=== PATIENT | male | born 1965 | race Caucasian/White ===

== ENCOUNTER 2017-09-21 07:13 | Observation (INO) | payer OTHER, SELFPAY ==
[2017-09-21 07:43] LABS: #Basophils 0.1 thou/uL (0.0-0.2); #Eosinphils 0.1 thou/uL (0.0-0.7); #Lymphocytes 1.7 thou/uL (1.20-3.40); #Monocytes 0.7 thou/uL (0.11-0.59); #Neutrophils 4.9 thou/uL (1.40-6.50); %Basophils 1.1 % (0.0-1.0); %Eosinophils 1.9 % (0.0-10.0); %Lymphocytes 22.3 % (21.0-51.0); %Monocytes 9.3 % (0.0-10.0); %Neutrophils 65.5 % (42.0-75.0); Hemoglobin 17.2 g/dL (14.0-18.0); Mean Corpuscular HGB CONC 34.1 g/dL (32.0-36.0); Mean Corpuscular Hemoglobin 32.3 pg (27.0-31.0); Mean Corpuscular Volume 94.9 fl (80.0-94.0); Mean Platelet Volume 8.7 fL (7.4-10.4); Platelet Count 171 thou/uL (130-400); RBC Distribution Width 12.1 % (11.5-14.5); Red Blood Cell (RBC) Count 5.32 mill/uL (4.70-6.10); White Blood Cell (WBC) Count 7.5 thou/uL (4.8-10.8)
[2017-09-21 08:07] LABS: ALT (SGPT) 195 U/L (8-55); AST (SGOT) 124 U/L (5-34); Albumin 3.8 g/dL (3.5-5.0); Alkaline Phosphatase 71 U/L (40-150); Anion Gap 13 mmol/L (10-20); BUN (Urea Nitrogen) 11 mg/dL (8.4-25.7); Bilirubin, Total 1.1 mg/dL (0.2-1.2); Calc. Creatinine Clearance 0 mL/min (70-130); Calcium 9.5 mg/dL (7.8-10.44); Carbon Dioxide 23 mmol/L (22-29); Chloride 102 mmol/L (98-107); Estimated GFR-MDRD Greater than 90; Globulin 4.8 g/dL (2.4-3.5); Glucose 116 mg/dL (70-105); Potassium 4.3 mmol/L (3.5-5.1); Protein, Total 8.6 g/dL (6.0-8.3); Sodium 134 mmol/L (136-145)
[2017-09-21 08:11] LABS: Troponin I 0.016 ng/mL (< 0.028)
--- NOTE | 2017-09-21 08:15 | RAD ---
PORTABLE CHEST 1 VIEW: Date: 09/21/17 Time: 0715 hours HISTORY: Chest pain radiating to left shoulder. FINDINGS: Comparison made with exam of 01/14/16. The heart size is normal. The aorta is tortuous. The lungs are expanded without focal areas of consol idation, pneumothorax, or pleural effusions. IMPRESSION: No radiographic evidence of acute cardiopulmonary process. POS: [facility]
[2017-09-21] MEDS ORDERED: Nitroglycerin 2% Ointment 1 INCH/1 GM Packet ONE (08:43)
[2017-09-21 13:05] LABS: Troponin I Less than 0.010 ng/mL (< 0.028)
[2017-09-21 13:19] VITALS: BMI 27.9
[2017-09-21] MEDS ORDERED: Ondansetron ODT 4 MG TAB SL PRN (13:41)
[2017-09-21] MEDS ORDERED: Acetaminophen 325 MG TAB PO PRN ×2 (13:41→13:46)
[2017-09-21] MEDS ORDERED: Ondansetron PF 4 MG/2 ML Vial IVP PRN ×2 (13:41→13:46)
[2017-09-21] MEDS ORDERED: Milk Of Magnesia 30 ML UDCUP PO PRN (13:46)
[2017-09-21] MEDS ORDERED: Diabetic Tussin 200 MG/10 ML UDCUP PO PRN (13:46)
[2017-09-21] MEDS ORDERED: Loratadine 10 MG TAB PO PRN (13:46)
[2017-09-21] MEDS ORDERED: Senokot 8.6 MG TAB PO PRN (13:46)
[2017-09-21] MEDS ORDERED: Mag-Al 1200 mg/1200 mg/30 ML UDCUP PO PRN (13:46)
[2017-09-21] MEDS ORDERED: Eucerin (Mineral Oil/Petrolatum,White) 30 gm Jar TOP PRN (13:46)
[2017-09-21] MEDS ORDERED: Sodium Chloride 0.65% Nasal 44 ML BOT EA NARE PRN (13:46)
[2017-09-21] MEDS ORDERED: Chloraseptic Spray 180 ml Bottle PO PRN (13:46)
[2017-09-21] MEDS ORDERED: Artificial Tears 18 DROP/0.9 ML EA EYE PRN (13:46)
[2017-09-21] MEDS ORDERED: Loperamide HCl 2 MG CAP PO PRN (13:46)
[2017-09-21] MEDS ORDERED: Nitroglycerin 0.4 MG TAB (25 Tab Bottle) SL PRN (13:46)
[2017-09-21] MEDS ORDERED: Zolpidem Tartrate 5 MG TAB PO PRN (13:46)
[2017-09-21] MEDS ORDERED: hydrALAZINE 20 MG/ML VIAL SLOW IVP PRN (13:46)
[2017-09-21] MEDS ORDERED: Ondansetron ODT 4 MG TAB PO PRN (13:46)
[2017-09-21] MEDS ORDERED: Aspirin 325 MG TAB PO SCH (14:00)
[2017-09-21] MEDS: HYDROcodone/Acetaminophen 5/325 mg Tablet PO PRN ×2 (14:13→20:38)
[2017-09-21] MEDS: cloNIDine 0.1 MG TAB PO PRN ×2 (14:14→20:37)
--- NOTE | 2017-09-21 14:32 | HP ---
PRIMARY CARE PHYSICIAN: The patient reports that he saw last Dr. Mickey Mcneil. REASON FOR ADMISSION: Chest pain, hypertensive urgency. HISTORY OF PRESENT ILLNESS: A 51-year-old male who has history of hypertension who presented to emergency room with the complaint of chest pain. Patient reports that last night around 12:30, he woke up with chest pain which was left- sided in location, radiated to left shoulder, 10/10 in intensity, associated with some nausea, but no vomiting. The patient sat down at the edge of bed and he stood up and he was moving around and pain little bit eased up, but it was there and finally he was able to go to sleep, but when he woke up this morning, he was still having left-sided pain and that is why he was concerned about and decided to come to emergency room for evaluation. Patient was feeling nausea, dizziness, lightheadedness, and palpitations this morning. He denies any syncope. He denies any orthopnea, PND or leg swelling. He denies any calf tenderness. He denies any vomiting. He denies any fever, chills, cough. He denies any flu-like symptoms. The patient took medication for his blood pressure this morning, but when he presented to emergency room, he was still hypertensive with blood pressure of 194/110. In the emergency room, the patient was given nitroglycerin sublingual x2, aspirin 324 mg and subsequently his pain was eased up to 6/10 in intensity. His pain was not completely subsided and that is why we decided to keep this patient in hospital for observation to rule out acute coronary syndrome. This patient denies any UTI symptoms. He denies any constipation, diarrhea, melena or hematochezia. He reports that Toprol-XL and amiodarone when he takes , then he feels funny and he does not take those medication, especially whenever he is working. The patient also reports that he was on amiodarone as well as Eliquis therapy, but Eliquis therapy was discontinued for lower extremity edema. REVIEW OF SYSTEMS: The following complete review of systems was negative, unless otherwise mentioned in the HPI or below: Constitutional: Weight loss or gain, ability to conduct usual activities. Skin: Rash, itching. Eyes: Double vision, pain. ENT/Mouth: Nose bleeding, neck stiffness, pain, tenderness. Cardiovascular: Palpitations, dyspnea on exertion, orthopnea. Respiratory: Shortness of breath, wheezing, cough, hemoptysis, fever or night sweats. Gastrointestinal: Poor appetite, abdominal pain, heartburn, nausea, vomiting, constipation, or diarrhea. Genitourinary: Urgency, frequency, dysuria, nocturia. Musculoskeletal: Pain, swelling. Neurologic/Psychiatric: Anxiety, depression. Allergy/Immunologic: Skin rash, bleeding tendency. Please see my HPI for pertinent positive and negative. All other review of systems reviewed and negative except as mentioned in the HPI. ALLERGIES: No known drug allergy. CURRENT HOME MEDICATIONS: Prinzide 20/25 one tablet daily, Lipitor 80 mg p.o. daily, amlodipine 10 mg daily, Toprol-XL 50 mg p.o. daily, amiodarone 200 mg twice daily, aspirin 325 mg p.o. daily. PAST MEDICAL HISTORY: Hypertension, history of CVA with left-sided deficiency, dyslipidemia, chronic hepatitis C, history of TIA, coronary artery disease, history of transient atrial fibrillation in past, tobacco abuse disorder, history of alcoholism. PAST SURGICAL HISTORY: Cardiac catheterization showed nonobstructive coronary artery disease, appendicectomy, hernia repair, right carotid endarterectomy. PAST PSYCHIATRIC HISTORY: Reviewed and negative. SOCIAL HISTORY: Patient is single. He used to drink 6 beers on a daily basis, but he cut down. He smokes about 1 pack per daily basis. He denies any current drug abuse history, but he has a remote history of marijuana and IV drug abuse. 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 FAMILY HISTORY: No strong family history of premature coronary artery disease, stroke or cancer. EMERGENCY ROOM COURSE: Patient is given aspirin, nitropatch. PHYSICAL EXAMINATION: VITAL SIGNS: On arrival, blood pressure 194/110, pulse 67, respiratory rate 24 , temperature 98.7, saturation 93% on room air, weight 88.5 kilograms. GENERAL: Patient is currently alert, awake, no obvious acute distress. HEENT: Head: Normocephalic, atraumatic. Eyes: Pupils round, reactive to light. Extraocular muscle intact. ENT: Oropharynx within normal limits. Moist mucous membranes, no oral lesion, no pharyngeal erythema, no exudate. NECK: Supple, no JVD, no thyromegaly, no carotid bruit, no jugular venous distention. LUNGS: Clear to auscultation without any rhonchi or rales. CARDIAC: S1, S2 regular without any significant murmur. ABDOMEN: Soft, bowel sounds present, nontender, nondistended. No organomegaly , no mass, no suprapubic tenderness. BACK: Unremarkable, no CVA tenderness. EXTREMITIES: Upper extremity, passive movement of all joints are normal. Lower extremity, no edema. Good peripheral pulsation. SKIN: No skin rash. HEMATOLOGICAL: No lymphadenopathy. NEUROLOGIC: The patient is alert and oriented x3. Cranial nerves II through XII intact. Motor and sensation within normal limits. No focal neurological deficit noted. PSYCHIATRIC: Normal affect. SIGNIFICANT LABORATORY DATA AND IMAGING: Chest x-ray based on my review, no acute cardiopulmonary process. CBC: WBC 7.5, hemoglobin 17.2, platelet 171. BMP: Sodium 134, potassium 4.3, chloride 102, carbon dioxide 23, anion gap 13, BUN 11, creatinine 0.77, glucose 116, calcium 9.5. Total bilirubin 1.1, AST 124 , ALT 195, alkaline phosphatase 71, albumin 3.8. Cardiac enzymes negative x2. ASSESSMENT AND PLAN: 1. Acute chest pain. Patient's chest pain description is atypical. He has underlying several risk factors for coronary artery disease including hypertension, dyslipidemia, smoking as well as peripheral vascular disease. The patient will be observed on telemetry floor. His cardiac enzymes are negative. We will try to perform stress test today for diagnostic reason. We will check lipid profile tomorrow morning for risk stratification. We will continue the nitropatch q.8 hourly, aspirin 325 mg p.o. daily and during this admission, we will try to control his blood pressure with different blood pressure medication. We will closely monitor on telemetry floor. 2. Tobacco abuse disorder. Smoking cessation counseling given. Healthy lifestyle measures discussed with the patient. We will offer nicotine patch if needed. 3. Abnormal liver function tests, likely related with his history of alcohol abuse as well as chronic hepatitis C. Patient is advised to follow up with primary care physician as an outpatient basis. 4. Hypertensive urgency. The patient's blood pressure is out of control. At this point, we will verify his home medication. We will continue with Prinzide 20/25 one tablet p.o. daily, amlodipine 10 mg p.o. daily, nitropatch q.8 hourly and we will use hydralazine and clonidine p.r.n. basis. 5. Dyslipidemia. Check lipid profile tomorrow morning and start statin therapy as per home dosage. 6. Nonspecified atrial arrhythmia. He had transient atrial fibrillation and currently is on amiodarone. Currently, the patient is in sinus rhythm. He has premature atrial complexes on EKG. We will closely monitor on telemetry floor. The patient is not on any chronic anticoagulation therapy at this point, the patient is only on aspirin therapy. The patient is advised to follow up with primary granite cutter. 7. History of cerebrovascular accident without any residual deficit. 8. Deep venous thrombosis prophylaxis not needed because we are expecting discharge in 24 hours. 9. Gastrointestinal prophylaxis, Pepcid 20 mg p.o. b.i.d. 10. CODE STATUS: The patient is FULL CODE. Patient does not have any surrogate decision maker. Disposition plan based on stress test result, likely within 24-48 hours. Plan of care discussed with the patient in detail. SETH
[2017-09-21 15:33] LABS: Troponin I Less than 0.010 ng/mL (< 0.028)
[2017-09-21] MEDS: Nitroglycerin 2% Ointment 1 INCH/1 GM Packet TOP SCH ×2 (17:10→20:11)
[2017-09-21 18:28] LABS: Bilirubin Moderate (Negative); Blood, Urine Negative (Negative); Clarity CLEAR (Clear); Glucose, Urine (Dipstick) Negative (Negative); Protein, Urine (Dipstick) Trace mg/dL (Neg-Trace); Specific Gravity, Urine 1.027 (1.002-1.036)
[2017-09-21 18:30] LABS: Bacteria/HPF None Seen HPF (None Seen); Hyaline Casts/LPF 0-3 HYALINE CAST LPF (0-3 Hyaline); Pathc Cast-AUWi Flag 0.29 (0-2.49); RBC/HPF 0-3 HPF (0-3); Squamous Epithelial 0-3 HPF (0-3); WBC/HPF 0-3 HPF (0-3)
[2017-09-21 18:39] LABS: Leukocyte Negative (Negative); Nitrite Negative (Negative)
[2017-09-21] MEDS: Famotidine 20 MG TAB PO SCH (20:38)
[2017-09-22] MEDS: cloNIDine 0.1 MG TAB PO PRN (01:02)
[2017-09-22 04:46] LABS: Cardiac Risk 3.5 (Less than 4.5)
[2017-09-22 07:50] VITALS: TEMP 98.6
[2017-09-22] MEDS: Nitroglycerin 2% Ointment 1 INCH/1 GM Packet TOP SCH (08:08)
[2017-09-22] MEDS ORDERED: Lisinopril/Hydrochlorothiazide 20/25 mg Tablet PO SCH (09:00)
[2017-09-22] MEDS ORDERED: Aspirin 325 MG TAB PO SCH (09:00)
[2017-09-22] MEDS ORDERED: Amlodipine 10 MG TAB PO SCH (09:00)
--- NOTE | 2017-09-22 09:28 | PDOC.PN ---
- Subjective Encounter Start Date: 09/22/17 Encounter Start Time: 07:00 -: old records requested/rev Patient seen and examined. No new complaints. No overnight events - Objective Resuscitation Status: Resuscitation Status FULL:Full Resuscitation MAR Reviewed: Yes Vital Signs & Weight: Vital Signs (12 hours) Temp Pulse Resp BP BP Pulse Ox 09/22/17 07:28 98.6 F 53 L 12 159/103 H 95 09/22/17 02:42 54 L 18 142/93 H 94 L 09/22/17 01:02 175/101 H I&O: 09/21/17 09/22/17 09/23/17 06:59 06:59 06:59 Intake Total 600 Output Total 200 Balance 400 Result Diagrams: 09/21/17 07:35 09/21/17 07:35 EKG Reviewed by me: Yes (nsr) Phys Exam - Physical Examination Constitutional: NAD HEENT: PERRLA, moist MMs, sclera anicteric Neck: no JVD, supple Respiratory: no wheezing, no rales, no rhonchi Cardiovascular: RRR, no significant murmur, no rub Gastrointestinal: soft, non-tender, no distention, positive bowel sounds Musculoskeletal: no edema, pulses present Neurological: non-focal, normal sensation, moves all 4 limbs Psychiatric: normal affect, A&O x 3 Skin: no rash, normal turgor Dx/Plan (1) Chest pain Code(s): R07.9 - CHEST PAIN, UNSPECIFIED Status: Acute (2) Abnormal LFTs Code(s): R94.5 - ABNORMAL RESULTS OF LIVER FUNCTION STUDIES Status: Chronic (3) Chronic hepatitis C Code(s): B18.2 - CHRONIC VIRAL HEPATITIS C Status: Chronic (4) H/O carotid endarterectomy Code(s): Z98.890 - OTHER SPECIFIED POSTPROCEDURAL STATES Status: Chronic (5) H/O: CVA (cerebrovascular accident) Code(s): Z86.73 - PRSNL HX OF TIA (TIA), AND CEREB INFRC W/O RESID DEFICITS Status: Chronic (6) Hyperlipidemia Code(s): E78.5 - HYPERLIPIDEMIA, UNSPECIFIED Status: Chronic (7) Hypertension Code(s): I10 - ESSENTIAL (PRIMARY) HYPERTENSION Status: Chronic (8) Tobacco abuse Code(s): Z72.0 - TOBACCO USE Status: Chronic - Plan cont current plan of care * medication reviewed as below * symptomatic treatment * resume home meds * STRESS TEST IS NEGATIVE, WILL DISCHARGE HOME Review of Systems - Review of Systems Eyes: negative: Pain, Vision Change, Conjunctivae Inflammation, Eyelid Inflammation, Redness, Other ENT: negative: Ear Pain, Ear Discharge, Nose Pain, Nose Discharge, Nose Congestion, Mouth Pain, Mouth Swelling, Throat Pain, Throat Swelling, Other Respiratory: negative: Cough, Dry, Shortness of Breath, Hemoptysis, SOB with Excertion, Pleuritic Pain, Sputum, Wheezing Cardiovascular: negative: chest pain, palpitations, orthopnea, paroxysmal nocturnal dyspnea, edema, light headedness, other Gastrointestinal: negative: Nausea, Vomiting, Abdominal Pain, Diarrhea, Constipation, Melena, Hematochezia, Other Genitourinary: negative: Dysuria, Frequency, Incontinence, Hematuria, Retention , Other Musculoskeletal: negative: Neck Pain, Shoulder Pain, Arm Pain, Back Pain, Hand Pain, Leg Pain, Foot Pain, Other Skin: negative: Rash, Lesions, Javier, Bruising, Other - Medications/Allergies Allergies/Adverse Reactions: Allergies Allergy/AdvReac Type Severity Reaction Status Date / Time rosuvastatin [From Crestor] Allergy Verified 09/21/17 14:08 Medications: Current Medications Acetaminophen (Tylenol) 650 mg PO Q4H PRN PRN Reason: Headache/Fever or Pain Hydrocodone Bitart/Acetaminophen ([place] 5/325) 1 tab PO Q4H PRN PRN Reason: Moderate Pain (4-6) Last Admin: 09/21/17 20:38 Dose: 1 tab Al Hydroxide/Mg Hydroxide (Maalox) 30 ml PO Q6H PRN PRN Reason: Heartburn or Indigestion Amlodipine Besylate (Norvasc) 10 mg PO DAILY [facility] Artificial Tears (Tears Naturale) 0 drop EA EYE PRN PRN PRN Reason: Dry Eyes Aspirin (Aspirin) 325 mg PO DAILY [facility] Clonidine (Catapres) 0.1 mg PO Q4H PRN PRN Reason: Systolic BP > 180 Last Admin: 09/22/17 01:02 Dose: 0.1 mg Famotidine (Pepcid) 20 mg PO BID [facility] Last Admin: 09/21/17 20:38 Dose: 20 mg Guaifenesin (Robitussin Sf) 200 mg PO Q4H PRN PRN Reason: Cough Lisinopril/HCTZ (Prinizide 20-25) 1 tab PO DAILY [facility] Hydralazine HCl (Apresoline) 10 mg SLOW IVP Q4H PRN PRN Reason: Systolic BP > 180 Loperamide HCl (Imodium) 2 mg PO PRN PRN PRN Reason: Diarrhea/Loose Stools Loratadine (Claritin) 10 mg PO DAILYPRN PRN PRN Reason: Sinus Symptoms Magnesium Hydroxide (Milk Of Magnesium) 30 ml PO DAILYPRN PRN PRN Reason: Constipation Mineral Oil/White Petrolatum (Eucerin Cream) 0 gm TOP BIDPRN PRN PRN Reason: Dry Skin Nitroglycerin (Nitrostat) 0.4 mg SL Q5MIN PRN PRN Reason: Chest Pain Nitroglycerin (Nitro-Bid 2% Ointment) 0.5 inch TOP 0100,0900,1700 [facility] Last Admin: 09/22/17 08:08 Dose: Not Given Ondansetron HCl (Zofran Odt) 4 mg PO Q6H PRN PRN Reason: Nausea/Vomiting Ondansetron HCl (Zofran) 4 mg IVP Q6H PRN PRN Reason: Nausea/Vomiting Phenol (Chloraseptic [place] 180 Ml Bot) 0 ml PO PRN PRN PRN Reason: Sore Throat Senna (Senokot) 2 tab PO HSPRN PRN PRN Reason: Constipation Sodium Chloride ([place]att Nasal [place] 0.65%) 0 ml EA NARE QIDPRN PRN PRN Reason: Nasal Congestion Zolpidem Tartrate (Ambien) 5 mg PO HSPRN PRN PRN Reason: Insomnia
--- NOTE | 2017-09-22 11:17 | DIS ---
PRIMARY CARE PHYSICIAN: Dr. Radha Richter. DATE OF ADMISSION: 09/21/2017 DATE OF DISCHARGE: 09/22/2017 DISCHARGE DISPOSITION: Home. PRIMARY DISCHARGE DIAGNOSES: Chest pain, rule out acute coronary syndrome. SECONDARY DISCHARGE DIAGNOSES: Tobacco abuse disorder, hypertension, dyslipidemia, history of cerebr ovascular accident, history of carotid endarterectomy, chronic hepatitis C, and chronically abnormal LFT. PRIMARY PROCEDURE/OPERATION: None. RADIOLOGICAL INVESTIGATION: Chest x-ray normal. STRESS TEST RESULT: Pending. SIGNIFICANT LABORATORY DATA: WBC 7.5, hemoglobin 17.2, platelet 171. Sodium 134, potassium 4.3, BUN 11, creatinine 0.77, glucose 116, calcium 9.5, AST 124, ALT 195, alkaline phosphatase 71, albumin 3. 8, LDL 107. Cardiac enzymes negative x3. Urinalysis: bilirubin moderate. DISCHARGE MEDICATIONS: The patient will continue all his previous medication. Amlodipine 10 mg p.o. daily added for uncontrolled hypertension during this admission, aspirin 81 mg p.o. daily, Pepcid 20 mg p.o. b.i.d., and Prinzide 20/25 one tablet p.o. daily. CONTRAINDICATIONS: None. CODE STATUS: FULL CODE. INPATIENT CONSULTANTS: None. ALLERGIES: CRESTOR. DISCHARGE PLAN: Post hospital, the patient will follow up with primary care physician in 1 week. HOSPITAL COURSE: A 51-year-old male with above-mentioned medical problem, who was admitted by me yes terday for chest pain. The patient's blood pressure was out of control. Please see my HPI for furth er details. His chest pain description was atypical for angina. We kept this patient in hospital fo r observation. We did serial cardiac enzymes that were negative. Telemetry remained unremarkable. We performed exercise Cardiolite stress test today, result is pending by the time of dictation. If stress test is negative, then we will consider discharging him home later on today. For his uncon trolled hypertension during this admission, we added amlodipine. Rest of medication will be continue d as per previous.
[2017-09-22 11:24] VITALS: BP 163/99
[2017-09-22] MEDS: Famotidine 20 MG TAB PO SCH (11:40)
--- NOTE | 2017-09-22 12:06 | NM ---
CARDIAC SPECT: CLINICAL HISTORY: 51-year-old male with chest pain, coronary artery disease, atrial fibrillation, hypertension, and dys lipidemia. TECHNIQUE: A myocardial perfusion scan was performed using the single isotope one day protocol with technetium-9 9m sestamibi. 10 mCi were injected intravenously for the rest exam followed by 28 mCi for the stress exam. Pharmacologic stress with Lexiscan was monitored and interpreted by Dr. Cornell. FINDINGS: Homogeneous tracer distribution is seen in the myocardial segments on stress and rest images without fixed or reversible defects. GATED SPECT LVEF: 48%. WALL MOTION EXAM: No segmental wall motion abnormalities are seen. IMPRESSION: Normal myocardial perfusion scan. POS: [facility]
[2017-09-22] MEDS ORDERED: Regadenoson 0.4 MG/5 ML SYRINGE ONE (15:25)
--- NOTE | 2017-11-03 19:56 | EKG ---
Test Reason : CHEST PAIN Blood Pressure : / mmHG Vent. Rate : 073 BPM Atrial Rate : 073 BPM P-R Int : 132 ms QRS Dur : 102 ms QT Int : 432 ms P-R-T Axes : 087 061 061 degrees QTc Int : 475 ms Sinus rhythm with Premature atrial complexes with Abberant conduction Otherwise normal ECG Confirmed by MARICEL ERICKSON ([id number]), video effects editor PRABHA HURLEY ([id number]) on 11/03/2017 7:55:34 PM Referred By: Confirmed By:MARICEL ERICKSON
--- NOTE | 2017-11-21 08:07 | STRESS ---
Acquisition Time: 2017-09-22 09:34:40 Total Exercise Time: 00:01:00 Test Indications: CHEST PAIN Medications: Protocol: LEXISCAN Max HR: 093 BPM 55% of Pred: 168 BPM Max BP: 166/094 mmHG Max Work Load: 1.0 METS RESTING ECG: NORMAL SINUS RHYTHM AT 65 BPM WITH EARLY REPOLARIZATION; OCCASIONAL PAC'S SYMPTOMS: DYSPNEA ON EXERTION, CHEST TIGHTNESS NORMAL BP RESPONSE ECTOPY: RARE PAC'S; RARE PVC'S ECG STRESS: NO SIGNIFICANT CHANGES INTERPRETATION: INDETERMINATE ECG/AWAIT NUCLEAR IMAGES FOR DEFINITIVE DIAGNOSIS Confirmed by RUPA DE JESUS M.D. ([id number]) on 11/21/2017 8:06:56 AM Referred By: MD Jorge HENSLEY Confirmed By:RUPA DE JESUS M.D.
== END 2017-09-22 15:14 | disposition home or self-care (01) ==
LOC: ERS 07:13 → 2SW 13:13
PROVIDERS: ADMIT Internal Medicine; ATTEND Internal Medicine
DX: R07.9 Chest pain, unspecified (principal); I16.0 Hypertensive urgency; I10 Essential (primary) hypertension; E78.5 Hyperlipidemia, unspecified; B18.2 Chronic viral hepatitis C; I25.10 Atherosclerotic heart disease of native coronary artery without angina pectoris; F17.200 Nicotine dependence, unspecified, uncomplicated; R79.89 Other specified abnormal findings of blood chemistry; Z79.82 Long term (current) use of aspirin; Z79.899 Other long term (current) drug therapy
CPT/HCPCS: 36415; 71045; 78452; 80053; 80061; 81001; 82553; 84484; 85025; 90471; 90732; 93005; 93017; 94760; A9500; G0009; G0378; J0360; J2785

== ENCOUNTER 2018-09-02 16:26 | Observation (INO) | payer SELFPAY ==
[2018-09-02] MEDS ORDERED: hydrALAZINE 20 MG/ML VIAL ONE (16:43)
[2018-09-02] MEDS ORDERED: Acetaminophen 500 MG TAB ONE (18:48)
[2018-09-02] MEDS ORDERED: Lorazepam 2 MG/ML VIAL ONE (19:09)
[2018-09-02 20:22] LABS: Troponin I 0.012 ng/mL (< 0.028)
[2018-09-02] MEDS ORDERED: hydrALAZINE 20 MG/ML VIAL SLOW IVP PRN (21:22)
[2018-09-02 23:23] LABS: Troponin I Less than 0.010 ng/mL (< 0.028)
[2018-09-03] MEDS ORDERED: cloNIDine 0.1 MG TAB PO PRN (00:05)
[2018-09-03] MEDS ORDERED: Ondansetron ODT 4 MG TAB PO PRN (00:06)
[2018-09-03] MEDS ORDERED: Nitroglycerin 0.4 MG TAB (25 Tab Bottle) SL PRN (00:06)
[2018-09-03] MEDS ORDERED: Ondansetron PF 4 MG/2 ML Vial IVP PRN (00:06)
[2018-09-03 00:17] VITALS: BMI 30.7
[2018-09-03] MEDS ORDERED: Furosemide 20 MG/2 ML VIAL SLOW IVP SCH (01:00)
[2018-09-03] MEDS: Nicotine 14 MG PATCH TD SCH (01:10)
[2018-09-03 01:51] LABS: Amphetamine Not Detected (NotDetected); Barbiturates Screen Not Detected (NotDetected); Benzodiazepine Screen Detected (NotDetected); Cocaine Metabolite Screen Not Detected (NotDetected); Medtox Control Line Valid? VALID (VALID); Medtox Reader # READER 4; Methadone Not Detected (NotDetected); Methamphetamine Not Detected (NotDetected); Opiate Screen Not Detected (NotDetected); Oxycodone Screen Not Detected (NotDetected); Phencyclidine (PCP) Not Detected (NotDetected); THC/Cannabinoid Screen Detected (NotDetected); Tricyclic Screen Not Detected (NotDetected)
--- NOTE | 2018-09-03 03:54 | HP ---
PRIMARY CARE PHYSICIAN: REBECCA Stock. CHIEF COMPLAINT: Cough, shortness of breath, and chest pain. HISTORY OF PRESENT ILLNESS: Mr. Burrows is a 52-year-old male with a past medical history of hypertension, hyperlipidemia, and CVA, who had presented to [facility] earlier today after being transferred from an outside [place] ER for chest pain rule out. The patient reports cough and shortness of breath over the last 2 weeks, he states that he had developed chest pain roughly 1 week ago and had worsened over the weekend. He had gone to his PCP earlier today and was later referred to the ED for further workup. The patient states that his chest pain is actually worse with his cough along with deep breathing. In [place], his workup included a 1-view chest x-ray, which revealed volume overload with interstitial edema. Per patient, he had no history of heart failure in the past. He had undergone an echocardiogram back in 2015, which was normal. He was seen for chest pain rule out last summer in September where he underwent cardiac stress test, which revealed a normal myocardial perfusion scan, normal wall motion, and an EF of 48% with no fixed or any reversible defect. He was later discharged home for close outpatient followup. Since then, he states that he had followed up with his PCP who had changed some of his home medications. He used to take Norvasc; however, this was later changed to verapamil recently over the last few months. He states that he is supposed to take a baby aspirin daily. However, he had not been taking it recently. He had denied any fever, chills, any headache, blurred vision, dizziness, any palpitations, any abdominal pain, nausea, vomiting, or diarrhea. He had reported that his chest pain is worse when he pushes on his chest on the left side and had seemed did not go away as of late. His workup included serial troponins which were found to be negative x4 with no EKG changes. It was deemed that the patient will be admitted due to his elevated blood pressures with systolic over 160 and diastolic over 100 and for further evaluation of his chest pain. REVIEW OF SYSTEMS: All other systems reviewed and found to be negative unless mentioned in the HPI. PAST MEDICAL HISTORY: Hypertension, hyperlipidemia, and previous history of CVA. PAST SURGICAL HISTORY: Appendectomy and a hernia repair. PSYCHIATRIC HISTORY: None. SOCIAL HISTORY: The patient lives at home with family. He states he drinks 1 to 2 beers a night and his last drink was on Sunday, and currently uses marijuana. He smokes about a half pack of cigarettes per day. KNOWN ALLERGIES: Rosuvastatin. CURRENT HOME MEDICATIONS: 1. Lisinopril/HCTZ 20 mg/25 mg. 2. Verapamil 80 mg 3 times daily. 3. Aspirin 81 mg daily. PHYSICAL EXAMINATION: VITAL SIGNS: BP 165/100, pulse 72, respirations 17, temperature 98.5 degrees Fahrenheit, O2 saturations 96% on room air. GENERAL: The patient is awake, alert, and oriented x3. He is currently lying uncomfortably in bed, in no acute distress. HEENT: Atraumatic, normocephalic. Pupils are round and reactive to light. Extraocular muscles intact. Moist mucous membranes noted. CARDIOVASCULAR: Positive S1 and S2. Regular rate and rhythm. No murmur auscultated. The patient with some mild reproducible chest pain localized to the left side and under left axilla. RESPIRATORY: Some mild coarse breath sounds heard bilaterally, however, worse on the right. ABDOMEN: Soft and nontender. Bowel sounds present. MUSCULOSKELETAL: Strength 5+ bilaterally upper and lower extremities. Moves all extremities equal. No edema noted. SKIN: Warm, dry, and intact. No rashes. No ulceration noted. PSYCHIATRIC: Good mood and affect. LABORATORY DATA: WBC 6.7, RBC 5.38, hemoglobin 16.2, platelets 183. Sodium 136, potassium 4.1, anion gap 12, BUN 13, creatinine 0.78, estimated GFR greater than 90, glucose 87, AST 101, ALT 168. Troponin negative x4. DIAGNOSTIC IMAGING: Portable chest x-ray revealed volume overload with some interstitial edema noted. ASSESSMENT AND PLAN: 1. Chest pain, this appears to be more atypical in nature and is currently reproducible, this could be noted to be costochondritis due to patient's cough over the last few weeks; however, we will check a chest x-ray to rule out heart failure as his chest x-ray shows some fluid overload and some interstitial edema. The patient will be given some IV Lasix x1 and he will be restarted on his home medications. 2. Hypertension. The patient will be restarted on his home medications. He will also be given p.r.n. medications including IV hydralazine and oral clonidine. 3. History of cerebrovascular accident, currently stable at this time. However, the patient will be restarted on a baby aspirin daily. 4. History of alcohol abuse. The patient will be monitored for any withdrawal. His last drink was Sunday and he states he only drinks about 1 to 2 beers a day. He states due to not feeling well recently, he had only been drinking 1 beer daily. 5. History of hepatitis C, currently at baseline. He appears to not be undergoing any further treatment for this. 6. Deep venous thrombosis and gastrointestinal prophylaxis. 7. Code status, full code. DISPOSITION: Pending further workup and clinical findings. Job ID: [id number]
[2018-09-03 05:51] LABS: #Basophils 0.1 thou/uL (0.0-0.2); #Eosinphils 0.2 thou/uL (0.0-0.7); #Lymphocytes 1.9 thou/uL (1.20-3.40); #Monocytes 0.9 thou/uL (0.11-0.59); #Neutrophils 3.3 thou/uL (1.40-6.50); %Basophils 1.7 % (0.0-1.0); %Eosinophils 2.5 % (0.0-10.0); %Lymphocytes 30.3 % (21.0-51.0); %Neutrophils 51.6 % (42.0-75.0); Mean Corpuscular HGB CONC 34.3 g/dL (32.0-36.0); Mean Corpuscular Hemoglobin 32.1 pg (27.0-31.0); Mean Corpuscular Volume 93.6 fL (78.0-98.0); Mean Platelet Volume 9.6 fL (7.4-10.4); Platelet Count 174 thou/uL (130-400); RBC Distribution Width 11.9 % (11.5-14.5); White Blood Cell (WBC) Count 6.4 thou/uL (4.8-10.8)
[2018-09-03 06:02] LABS: Anion Gap 13 mmol/L (10-20); BUN (Urea Nitrogen) 14 mg/dL (8.4-25.7); Calc. Creatinine Clearance 148 mL/min (70-130); Calcium 9.5 mg/dL (7.8-10.44); Carbon Dioxide 22 mmol/L (22-29); Chloride 102 mmol/L (98-107); Estimated GFR-MDRD Greater than 90; Glucose 87 mg/dL (70-105); Potassium 3.9 mmol/L (3.5-5.1); Sodium 133 mmol/L (136-145)
[2018-09-03] MEDS: Aspirin Chewable 81 MG TAB PO SCH (08:33)
[2018-09-03] MEDS: Lisinopril/Hydrochlorothiazide 20/25 mg Tablet PO SCH (08:33)
[2018-09-03] MEDS: Enoxaparin Sodium 40 MG/0.4 ML SYRINGE SC SCH (08:34)
[2018-09-03] MEDS: Famotidine 20 MG TAB PO SCH ×2 (08:34→20:07)
[2018-09-03] MEDS: Acetaminophen 325 MG TAB PO PRN (08:34)
[2018-09-03] MEDS: Verapamil 80 MG TAB PO SCH ×3 (08:34→20:07)
[2018-09-03] MEDS ORDERED: Amlodipine 10 MG TAB PO SCH (09:00)
[2018-09-03] MEDS ORDERED: Verapamil 80 MG TAB PO SCH (09:00)
--- NOTE | 2018-09-03 14:26 | ULT ---
BILATERAL CAROTID DUPLEX ULTRASOUND: HISTORY: TIA, CVA TECHNIQUE: Grayscale, color-flow and spectral Doppler ultrasound imaging of the extracranial carotid artery syst ems was performed bilaterally. FINDINGS: There is plaque formation on both sides. The peak systolic velocity in the right ICA measures 74 cm/s with an end-diastolic velocity of 20 cm/ s and a systolic ratio of 1.1. The peak systolic velocity in the left ICA measures 64 cm/s with an end-diastolic velocity of 21 cm/s and a systolic ratio of 0.75. Flow in both vertebral arteries remains antegrade. IMPRESSION: No evidence of hemodynamically significant stenosis.
--- NOTE | 2018-09-03 16:21 | MRI ---
EXAM: MRI Brain WO Con PROVIDED CLINICAL HISTORY: Bilateral upper extremity numbness and progressive weakness for 2 weeks. Akathisia. COMPARISON: 01/14/2016 FINDINGS: There is a stable area of blooming artifact within the posterior lateral aspect of the left putamen a s well as punctate focus of blooming artifact within the posteromedial left cerebellar hemisphere most suggestive of prior areas of hemorrhage. There are stable cavitated signal abnormalities within the bilateral basal ganglia and omkar bilateral ly likely reflective of remote ischemic change and cavitated lacunar infarctions. Again noted is increased FLAIR and T2-weighted signal intensity in the periventricular white matter most compatible with moderate to severe chronic small vessel ischemic changes which has progressed from the prior study. Cavitated small white matter infarctions are also present. No areas of restricted diffusion ar e seen to suggest an acute infarction. The septum pellucidum and third ventricle are in the midline. Mild cerebral volume loss is present. T he ventricular system is normal in size, shape, and position for the degree of sulcal atrophy. Appropriate flow voids are demonstrated at the base of the brain. There is a small mucous retention cyst again seen in the left sphenoid sinus with mild mucosal thicke haider in the ethmoidal air cells bilaterally. No other interval change from prior study. IMPRESSION: 1. No acute intracranial abnormalities demonstrated. 2. Remote areas of ischemia as well as chronic small vessel ischemic changes which have progressed fr om prior exam. 3. Stable areas of hemorrhage in the lateral aspect left putamen and involving the posterolateral med ial left cerebellar hemisphere. 3. Cerebral volume loss. 4. Mild sinus disease.
--- NOTE | 2018-09-03 16:27 | MRI ---
MRI Cervical spine without contrast: HISTORY: Bilateral upper extremity numbness and progressive weakness for 2 weeks. COMPARISON: None FINDINGS: The craniocervical junction is unremarkable. No significant cord signal abnormality. Paravertebral soft tissues have a normal appearance and normal signal intensity. C1-2:No significant stenosis. C2-3: There is a mild disc osteophyte complex with uncinate process hypertrophy. This narrows the farzad tral subarachnoid space without resulting in deformity of the spinal cord. Mild bilateral neural foraminal narrowing is present. C3-4: There is a broad-based disc osteophyte complex with uncinate process hypertrophy. This results in moderate narrowing of the central spinal canal, and there is flattening of the anterior aspect of the spinal cord. Severe left and moderate to severe right-sided neural foraminal narrowing is pres ent C4-5: There is broad-based disc osteophyte complex present. Facet hypertrophic changes are noted. The re is generalized mild narrowing of the central spinal canal. Moderate to severe right and moderate left-sided neural foraminal narrowing is present. C5-6: There is broad-based disc osteophyte complex with mild facet degenerative changes. The right ne ural foramen is patent, but there is mild left-sided neural foraminal narrowing. C6-7: There is a mild disc osteophyte complex without significant narrowing of the central spinal can al. Facet degenerative changes are present at this level. There is uncinate process hypertrophy. Moderate bilateral neural foraminal narrowing is present. C7-T1: There is uncinate process hypertrophy seen on the left with mild facet degenerative changes. F indings result in moderate left-sided neural foraminal narrowing. Central spinal canal and right neural foramen are patent IMPRESSION: Multilevel degenerative changes greatest involving the upper cervical spine.
[2018-09-03] MEDS ORDERED: Ketorolac Tromethamine 30 MG/ML VIAL IVP PRN (17:09)
--- NOTE | 2018-09-03 18:55 | PDOC.PN ---
- Subjective Encounter Start Date: 09/03/18 Encounter Start Time: 12:51 Subjective: Patient states his main complaint is upper extremity weakness x 2wks. -: As well as numbness. Has been experiencing weakness in bilateral LE. -: Denies any neck pain. Reports lower back pain. No trauma/heavy lifting. Hx of CVA close to one year ago. Denies any speech changes recently or vision changes. No gait disturbances. States he is unable to coordinate hand movements and frequently dropping items including drinks, food, utensils but due to numbness. States he feels he has good strength in upper exterimities but sensation is significantly reduced extending up to right shoulder and left elbow. No pain associated with this. Reports having an episode of stool incontinence last week, had urgency and unable to make it on time. States had diarrhea. Reports occasional issues with bladder control. Frequent dribbling. Denies any saddle or groin numbness/ tingling. No neck stiffness. No fevers, chills or sweats. Has also been having issues with coughing frequently when eating. Difficulty swallowing as of lately. Has noted occasional difficulty with speech. Finding words and slurring at times. No ESTES or dizziness. - Objective Resuscitation Status - Order Detail: 09/03/18 00:06 Resuscitation Status Routine Co-Sign Provider: Resuscitation Status: FULL: Full Resuscitation Vital Signs & Weight: Vital Signs (12 hours) Temp Pulse Resp BP BP Pulse Ox 09/03/18 12:00 98.2 F 67 20 155/97 H 94 L 09/03/18 08:33 135/94 H 09/03/18 08:00 98.6 F 73 22 H 147/101 H 93 L Weight Admit Weight 208 lb 6.4 oz Weight 208 lb 6.4 oz I&O: 09/02/18 09/03/18 09/04/18 06:59 06:59 06:59 Intake Total 240 720 Output Total 650 Balance -410 720 Result Diagrams: 09/03/18 04:45 09/03/18 04:45 Phys Exam - Physical Examination Constitutional: NAD HEENT: PERRLA, sclera anicteric, oral pharynx no lesions Neck: no nodes, full ROM Respiratory: no wheezing, no rales, no rhonchi, clear to auscultation bilateral Cardiovascular: RRR Gastrointestinal: soft, no distention, positive bowel sounds Musculoskeletal: no edema, pulses present Neurological: moves all 4 limbs Reduced power in lower extremities, power intact in bilateral UE Reduced sensation in bilateral UE and LE. Right arm worse than left. Psychiatric: normal affect, A&O x 3 Deviation from normal: No cerebellar signs. Normal speech and facial movements/ sensation No tongue deviation. Dx/Plan (1) H/O: CVA (cerebrovascular accident) Code(s): Z86.73 - PRSNL HX OF TIA (TIA), AND CEREB INFRC W/O RESID DEFICITS Status: Chronic (2) Hyperlipidemia Code(s): E78.5 - HYPERLIPIDEMIA, UNSPECIFIED Status: Chronic (3) Hypertension Code(s): I10 - ESSENTIAL (PRIMARY) HYPERTENSION Status: Chronic - Plan cont current plan of care, speech therapy, DVT proph w/SCDs MRI Brain/Cspine. Carotid US. Rule out TIA/CVA vs. cspine abnormality -: Patient started on Lasix on admission for pulmonary edema. Lungs clear. -: Reports cough, concern for aspiration given dysphagia. Monitor vitals/WCC. -: Repeat CXR to reassess if any underlying pneumonia. Dysphagia screening. -: NPO until cleared. ADDENDUM: Significant findings on Cspine MRI. Neurosurgery consult placed. No acute changes on Brain imaging.
--- NOTE | 2018-09-03 19:22 | RAD ---
Portable frontal chest radiograph: 09/03/2018 COMPARISON: 09/02/2018 HISTORY: Cough, dysphasia FINDINGS: Lungs are clear. Heart and mediastinal contours appear within normal limits. IMPRESSION: No acute findings.
--- NOTE | 2018-09-03 22:10 | CON ---
DATE OF CONSULTATION: 09/03/2018 CONSULTING PHYSICIAN: Hospitalist Service. IMPRESSION: 1. Headache, probably migrainous in nature. 2. Advancement of small vessel ischemic changes compared to last year. 3. Noncompliance with medications. 4. Hypertension. 5. Bilateral hand numbness, likely secondary to carpal tunnel syndrome. 6. History of benign positional vertigo episodes. PLAN: 1. Restart aspirin and a statin. 2. Toradol 30 mg IV now. HISTORY OF PRESENT ILLNESS: Mr. Burrows is a 52-year-old male with a past history of stroke. He was admitted last year and had a workup which at that time was related to left-sided weakness and numbness. His deficits improved. 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 Last week on Sunday, he started getting a headache. He later in the day started having some coughing episode. He coughed so hard that he actually blacked out for a moment. He then later developed some chest pain. He did not seek medical attention right away. Chest pain reportedly continued all weekend. He decided to see his primary care doctor on Sunday and was transferred here for further evaluation. He has had a prior cardiac workup with a Cardiolite stress test done in September of last year. Since admission, he had an MRI of the brain and cervical spine done. The brain images revealed chronic ischemic changes that worsened compared to last year. His MRI of the cervical spine showed some mild central canal stenosis, but no significant issues that would cause any neurologic deficits based on my review. He still complaining of a headache that intensifies when he bends over, he coughs. He has been hypertensive since admission with blood pressures around 147/101. He has not really received any treatment for this. He reports the headache was kind of coming and going throughout the weekend. PAST MEDICAL HISTORY: As listed above. ALLERGIES: ROSUVASTATIN. FAMILY HISTORY: Noncontributory. 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 REVIEW OF SYSTEMS: Ten-system review of systems is otherwise unremarkable. PHYSICAL EXAMINATION: VITAL SIGNS: As noted above with a pulse of 67, respirations 20. He has been afebrile. HEENT: Pupils are equal and reactive. Conjunctivae are clear. Oropharynx is clear. NECK: Supple. No lymphadenopathy. EXTREMITIES: Hands are significantly callused and the wrists are a bit swollen. NEUROLOGIC: He is alert and appropriate. His speech is fluent and clear. Cranial nerves 2 through 12 are intact. Motor exam shows good strength bilaterally. There is no fix or drift. Cerebellar testing shows normal [id number]-[id number] and rapid alternating movements. He could stand and walk independently. Sensation is intact to touch except in the fingertips where it is subjectively diminished. SUMMARY: A middle-aged man with a past history of a stroke and some advancing small-vessel disease. He has not been taking any medication to address this. He has several other symptoms ongoing that are likely fairly benign in origin such as benign positional vertigo and his carpal tunnel syndrome. I would be happy to follow up with him as an outpatient. He had carotid studies last year and had an endarterectomy, so I do not think repeating this would be of value at this point. Further evaluation of his cough and chest pain would appear to be indicated. Job ID: [id number]
[2018-09-04] MEDS: Nicotine 14 MG PATCH TD SCH (02:23)
[2018-09-04 06:10] LABS: #Basophils 0.1 thou/uL (0.0-0.2); #Eosinphils 0.1 thou/uL (0.0-0.7); #Lymphocytes 2.5 thou/uL (1.20-3.40); #Monocytes 0.9 thou/uL (0.11-0.59); #Neutrophils 3.3 thou/uL (1.40-6.50); %Basophils 1.3 % (0.0-1.0); %Eosinophils 1.9 % (0.0-10.0); %Lymphocytes 35.9 % (21.0-51.0); %Monocytes 12.7 % (0.0-10.0); %Neutrophils 48.3 % (42.0-75.0); Hemoglobin 16.9 g/dL (14.0-18.0); Mean Corpuscular HGB CONC 32.5 g/dL (32.0-36.0); Mean Corpuscular Hemoglobin 30.7 pg (27.0-31.0); Mean Corpuscular Volume 94.3 fL (78.0-98.0); Mean Platelet Volume 9.6 fL (7.4-10.4); Platelet Count 181 thou/uL (130-400); RBC Distribution Width 11.9 % (11.5-14.5); Red Blood Cell (RBC) Count 5.52 mill/uL (4.70-6.10); White Blood Cell (WBC) Count 6.8 thou/uL (4.8-10.8)
[2018-09-04 06:30] LABS: Lactic Acid 1.1 mmol/L (0.5-2.2)
[2018-09-04 06:34] LABS: Anion Gap 12 mmol/L (10-20); BUN (Urea Nitrogen) 15 mg/dL (8.4-25.7); Calc. Creatinine Clearance 130 mL/min (70-130); Calcium 9.9 mg/dL (7.8-10.44); Carbon Dioxide 24 mmol/L (22-29); Estimated GFR-MDRD Greater than 90; Glucose 96 mg/dL (70-105); Potassium 4.3 mmol/L (3.5-5.1)
[2018-09-04 06:43] LABS: Chloride 100 mmol/L (98-107); Sodium 132 mmol/L (136-145)
[2018-09-04] MEDS: Acetaminophen 325 MG TAB PO PRN (07:15)
[2018-09-04] MEDS: Aspirin Chewable 81 MG TAB PO SCH (09:45)
[2018-09-04] MEDS: Enoxaparin Sodium 40 MG/0.4 ML SYRINGE SC SCH (09:45)
[2018-09-04] MEDS: Verapamil 80 MG TAB PO SCH ×2 (09:45→15:15)
[2018-09-04] MEDS: Famotidine 20 MG TAB PO SCH (09:45)
[2018-09-04] MEDS: Lisinopril/Hydrochlorothiazide 20/25 mg Tablet PO SCH (09:45)
[2018-09-04 12:29] VITALS: BP 139/92; TEMP 98.8
--- NOTE | 2018-09-04 14:35 | PDOC.EVN ---
Event Note - Event Note Event Note: and evaluated, concur with management and discharge
--- NOTE | 2018-09-04 18:30 | DIS ---
DATE OF ADMISSION: 09/02/2018 DATE OF DISCHARGE: 09/04/2018 CONSULTING PHYSICIANS: 1. Dr. Shan Gustafson. 2. Neurosurgery. DISCHARGE DIAGNOSES: 1. Hypertension. 2. Bilateral upper extremity numbness secondary to previous cerebrovascular accident and possibly further worsened by cervical spine stenosis. HOSPITAL COURSE: Mr. Burrows is a 52-year-old man, who presented with complaints of cough and chest pain when seen on initial admission, therefore underwent workup including a chest x-ray that showed volume overload with interstitial edema treated with Lasix. The patient underwent serial troponins, which were negative. He had been given Ativan while in the ED and urine tox screen was positive for benzos as well as cannabinoids. The patient had a BNP done, which was 36.3. He was evaluated by me yesterday at which time, he complained of severe worsening and upper extremity numbness and weakness causing difficulty handling objects and food that he stated was particularly worse in the last 2 weeks. He also reported lower extremity weakness worse from baseline. The patient is known to have a previous CVA in 2016. He reported changes with his speech as well as difficulty swallowing and choking while eating food. A repeat chest x-ray was done to rule out any aspiration given complaints of shortness of breath, however, it showed no acute findings. An MRI of the brain was done to assess for any new versus old changes associated with TIA/CVA. The scan demonstrated no acute intracranial abnormalities. However, he was noted to have remote areas of ischemia and chronic small-vessel ischemic changes felt to have progressed from the prior exam done in December 2015. He also had stable areas of hemorrhage in the lateral aspect of the left putamen and involving thus posterolateral medulla, cerebral hemisphere with cerebral volume loss and mild sinus disease. The neck was included on the MRI given the upper extremity complaints and the patient was noted to have multilevel degenerative changes with most significant noted in the upper cervical spine. He had moderate narrowing of the central spinal canal with flattening of the anterior aspect of the spinal cord as well as severe [id number] right-sided neuroforaminal narrowing present at the level C3-C4. Similar changes were noted at C4-C5. For that reason, Neurosurgery was consulted. Today however, the patient has been giving different information to the nursing staff and other providers. When assessed once again, the patient states his weakness and numbness are at baseline from what he experienced with his previous stroke. I asked him about the worsening symptoms in the last 2 weeks that he had mentioned yesterday and the patient stated that he did have some worsening that he felt was attributed to his elevated blood pressure, which is now under control and he feels this is what his symptoms are back to baseline. Neurosurgery did contact us regarding the consultation and stated there was no emergent need for evaluation while in hospital and they would be happy to see him as an outpatient. The patient was very eager to go home and agreeable to follow up with him as an outpatient. Today, he is denying any bowel changes. No bowel or urine incontinence. No saddle paresthesia or anesthesias. He states he has been up and walking around and no longer having lower extremity weakness with inability to lift his legs as he normally can. He is without complaints. Has no headaches or vision changes. He is very much eager for discharge home with plans to follow up with Neurosurgery as well as Neurology as an outpatient. Dr. Gustafson evaluated him yesterday and had felt that his symptoms were fairly benign and felt there was no indication for further workup. He agreed to follow up with him as an outpatient. The patient did undergo carotid Dopplers, which were negative. He does have a history of a previous right carotid endarterectomy. REVIEW OF SYSTEMS: All other review of systems apart from those mentioned above in HPI are negative. PHYSICAL EXAMINATION: GENERAL: The patient appears well developed, well nourished, is in no acute distress. VITAL SIGNS: Temperature 98.8, pulse 52, respirations 20, O2 saturation 95% on room air, blood pressure 139/92. HEENT: Normocephalic, atraumatic. Pupils are equal, round, and reactive to light. Sclerae without icterus. Oropharynx is clear. NECK: Supple. Normal range of motion. No stiffness or rigidity. No tenderness. CARDIAC: Regular rate and rhythm. LUNGS: Clear to auscultation bilaterally without wheezes, rales, or rhonchi. ABDOMEN: Soft, nontender, nondistended. Normoactive bowel sounds present. EXTREMITIES: Power of 4/5 in bilateral arms. Slight reduced sensation on the left and right per the patient and is at baseline. No lower leg swelling or edema. Power 5/5 in bilateral legs. NEUROLOGIC: Alert and oriented x3. No neuro deficits. No cerebellar signs. SKIN: Without rash or jaundice. LABORATORY DATA: White blood count 6.8, hemoglobin 16.9, hematocrit 52.1, platelets 181. Sodium 132, potassium 4.3, BUN 15, creatinine 0.87, GFR greater than 90, glucose 96, lactic acid 1.1, calcium 9.9. Troponin negative x3. Procalcitonin 0.04. IMAGING DATA: 1. Chest x-ray, 09/02/2018. Lung nodule with interstitial edema. 2. MRI brain, no acute intracranial abnormalities. Details as mentioned above in hospital course. 3. Cervical spine. Please see above in hospital course for details. 4. Carotid Doppler study, 09/03/2018. No evidence of hemodynamically significant stenosis. 5. Repeat chest x-ray, 09/03/2018. No acute findings. 6. Echocardiogram, EF 55% to 60%. Moderate concentric left ventricular hypertrophy. Frequent premature atrial contractions. Left atrium mildly dilated. Moderate annular calcification. No evidence of mitral regurgitation. No aortic stenosis or regurgitation. Mild tricuspid regurgitation. Normal pulmonary artery pressure. DISCHARGE MEDICATIONS: The patient advised to resume home medications. CONDITION: Stable at discharge. DIET: Heart healthy. ACTIVITY: As tolerated. FOLLOWUP: 1. The patient advised to follow up with his primary care physician in 1 week. 2. The patient to follow up with Dr. Gustafson as recommended. 3. Follow up with Neurosurgery as an outpatient for further management of cervical spine stenosis and further imaging if indicated. DISPOSITION: The patient medically cleared for discharge home on 09/04/2018. The patient's case was discussed with Dr. Cox, who has seen and evaluated the patient and agrees with plan as described above. Job ID: [id number]
--- NOTE | 2018-09-07 10:30 | EKG ---
Test Reason : Blood Pressure : / mmHG Vent. Rate : 054 BPM Atrial Rate : 054 BPM P-R Int : 132 ms QRS Dur : 104 ms QT Int : 450 ms P-R-T Axes : 068 063 054 degrees QTc Int : 426 ms Sinus bradycardia Otherwise normal ECG Confirmed by MURPHY ENG ([id number]), communications editor SHAMA SEVERINO ([id number]) on 09/07/2018 10:30:50 AM Referred By: ALBERTINA Confirmed By:MURPHY ENG
--- NOTE | 2018-09-07 10:31 | EKG ---
Test Reason : Blood Pressure : / mmHG Vent. Rate : 077 BPM Atrial Rate : 077 BPM P-R Int : 130 ms QRS Dur : 112 ms QT Int : 418 ms P-R-T Axes : 033 070 047 degrees QTc Int : 473 ms Sinus rhythm with Premature atrial complexes Otherwise normal ECG Confirmed by MURPHY ENG ([id number]), fan mail editor SHAMA SEVERINO ([id number]) on 09/07/2018 10:31:05 AM Referred By: ALBERTINA Confirmed By:MURPHY ENG
== END 2018-09-04 15:10 | disposition home or self-care (01) ==
LOC: ERS 16:26 → ERHOLD 17:53 → 2SW 22:58
PROVIDERS: ADMIT Emergency Medicine; ATTEND Emergency Medicine
DX: R07.9 Chest pain, unspecified (principal); I10 Essential (primary) hypertension; R05 Cough; R06.02 Shortness of breath; E78.5 Hyperlipidemia, unspecified; F17.210 Nicotine dependence, cigarettes, uncomplicated; F10.10 Alcohol abuse, uncomplicated; M48.02 Spinal stenosis, cervical region; I69.398 Other sequelae of cerebral infarction; R20.0 Anesthesia of skin; Z79.82 Long term (current) use of aspirin; Z79.899 Other long term (current) drug therapy; Z88.8 Allergy status to other drugs, medicaments and biological substances; Z91.14 Patient's other noncompliance with medication regimen
CPT/HCPCS: 36415; 70551; 71045; 72141; 80048; 80306; 83605; 83880; 84145; 85025; 93005; 93306; 93880; 96372; 96374; 96375; 96376; G0378; J0360; J1650; J1940; J2060

== ENCOUNTER 2018-11-29 12:24 | Inpatient (IN) | payer SELFPAY ==
[2018-11-29 13:13] LABS: #Basophils 0.1 thou/uL (0.0-0.2); #Eosinphils 0.2 thou/uL (0.0-0.7); #Monocytes 0.5 thou/uL (0.11-0.59); #Neutrophils 3.2 thou/uL (1.40-6.50); %Basophils 1.2 % (0.0-1.0); %Eosinophils 2.7 % (0.0-10.0); %Lymphocytes 33.5 % (21.0-51.0); %Monocytes 8.8 % (0.0-10.0); %Neutrophils 53.9 % (42.0-75.0); Hemoglobin 17.9 g/dL (14.0-18.0); Mean Corpuscular HGB CONC 34.2 g/dL (32.0-36.0); Mean Corpuscular Volume 93.7 fL (78.0-98.0); Mean Platelet Volume 9.3 fL (7.4-10.4); Platelet Count 173 thou/uL (130-400); RBC Distribution Width 11.8 % (11.5-14.5); Red Blood Cell (RBC) Count 5.58 mill/uL (4.70-6.10)
[2018-11-29] MEDS ORDERED: hydrALAZINE 20 MG/ML VIAL ONE (13:14)
[2018-11-29 13:33] LABS: ALT (SGPT) 140 U/L (8-55); AST (SGOT) 91 U/L (5-34); Albumin 4.1 g/dL (3.5-5.0); Alkaline Phosphatase 71 U/L (40-150); Anion Gap 14 mmol/L (10-20); BUN (Urea Nitrogen) 9 mg/dL (8.4-25.7); Bilirubin, Total 0.6 mg/dL (0.2-1.2); CK (CPK) 35 U/L (30-200); Calc. Creatinine Clearance 0 mL/min (70-130); Calcium 9.7 mg/dL (7.8-10.44); Carbon Dioxide 23 mmol/L (22-29); Chloride 101 mmol/L (98-107); Estimated GFR-MDRD Greater than 90; Globulin 4.3 g/dL (2.4-3.5); Glucose 96 mg/dL (70-105); Lipase 33 U/L (8-78); Protein, Total 8.4 g/dL (6.0-8.3); Sodium 134 mmol/L (136-145)
--- NOTE | 2018-11-29 13:42 | RAD ---
SINGLE VIEW CHEST: Date: 11/29/18 COMPARISON: 09/03/18. HISTORY: Left arm weakness, bilateral hand numbness. FINDINGS: Single view of the chest shows a normal sized cardiomediastinal silhouette. There is no evidence of c onsolidation, mass, or pleural effusion. The bones are unremarkable. IMPRESSION: No evidence of acute cardiopulmonary disease. POS: [facility]
--- NOTE | 2018-11-29 15:11 | CT ---
HEAD CT WITHOUT CONTRAST: Date: 11/29/18 COMPARISON: 07/27/16. HISTORY: Left arm weakness for 2 days. TECHNIQUE: Axial CT imaging at 5 mm intervals from vertex through skull base without contrast. FINDINGS: Punctate calcific or metallic foreign body noted within the scalp on the right superior to the right orbit at the axial level of the frontal sinuses. The imaged paranasal sinuses/mastoid air cells are g rossly unremarkable. There is no displaced calvarial fracture. There is a subtle area of hypodensity in the lateral left cerebellar hemisphere on image 8, suggestin g an area of prior insult. There is significant periventricular and deep white matter multifocal hypo density suggesting small vessel disease/age-indeterminate ischemia. No evidence for intracranial hemo rrhage, midline shift, or mass effect. Findings were better assessed on the 09/03/18 brain MRI. IMPRESSION: Evidence of small vessel disease and prior infarctions. No intracranial hemorrhage. If there is clini clint concern for acute infarction, brain MRI advised. POS: [facility]
[2018-11-29] MEDS ORDERED: Acetaminophen 325 MG TAB ONE (15:24)
[2018-11-29] MEDS ORDERED: Acetaminophen 325 MG TAB PO PRN ×2 (16:22→18:05)
[2018-11-29] MEDS ORDERED: hydrALAZINE 20 MG/ML VIAL SLOW IVP PRN (16:24)
[2018-11-29 16:25] LABS: Troponin I 0.012 ng/mL (< 0.028)
[2018-11-29] MEDS ORDERED: hydrALAZINE 20 MG/ML VIAL SLOW IVP SCH ×2 (16:45→18:30)
[2018-11-29] MEDS ORDERED: cloNIDine 0.1 MG TAB PO PRN (16:48)
[2018-11-29] MEDS ORDERED: Ondansetron ODT 4 MG TAB PO PRN (18:09)
[2018-11-29] MEDS ORDERED: Ondansetron PF 4 MG/2 ML Vial IVP PRN (18:09)
[2018-11-29] MEDS: niCARdipine 25 MG in Sodium Chloride 0.9% 250 ML 250 ML IVPB SCH (19:14)
[2018-11-29 19:20] LABS: Troponin I 0.036 ng/mL (< 0.028)
[2018-11-29 20:19] VITALS: BMI 29.0
[2018-11-29] MEDS: Famotidine 20 MG TAB PO SCH (20:24)
[2018-11-29] MEDS: HYDROcodone/Acetaminophen 5/325 mg Tablet PO PRN (21:39)
[2018-11-30] MEDS: niCARdipine 25 MG in Sodium Chloride 0.9% 250 ML 250 ML IVPB SCH (01:40)
--- NOTE | 2018-11-30 01:43 | HP ---
CHIEF COMPLAINT: Pain in the left side of his chest as well as some numbness in both hands. HISTORY OF PRESENT ILLNESS: Mr. Burrows is a 53-year-old gentleman who has a history of a prior stroke, who had some residual left-sided weakness. He noticed some numbness in the left arm that started about 3 days ago. He had noticed it after he was doing some yard work. He regained some strength, but not all the way back to his baseline and he noticed some numbness in his right hand, which started after he came to the emergency room. He also reports an occasional left-sided drooping of the face and eating since his previous stroke. He had been awaiting a neurosurgery appointment, but this was rescheduled and then canceled due to insurance issues. He also has been told he has had cervical spinal stenosis and had an MRI on September 03 showing some multilevel DJD of the spine, but he has also noted that he has not been feeling right. He noticed the chest pain, which started today. He denies any trauma. No associated cough. No shortness of breath. No nausea. No vomiting. When he arrived in the emergency room, he was complaining of a headache as well. His blood pressure was over 220 systolic and for this reason, he is being admitted. They gave him hydralazine IV with minimal improvement in his blood pressure and since he continued to have some numbness in his hands as well as the severe headache, the decision has been made to change the location of admission from the observation unit to the ICU so that we can obtain better blood pressure control. PAST MEDICAL HISTORY: Taken from the patient as well as review of the electronic records and from the history and physical from 09/02/2018 and this includes hypertension, hyperlipidemia, as well as a previous stroke with residual left-sided weakness. PAST SURGICAL HISTORY: He has had an appendectomy and hernia repair. ALLERGIES: TO CRESTOR AND HE ALSO SAYS THAT CALCIUM CHANNEL BLOCKERS MAKE HIM SWELL. SOCIAL HISTORY: He lives with family. He drinks about 1-2 beers a day. He occasionally uses marijuana and he smokes about half a pack of cigarettes daily. FAMILY HISTORY: Significant for heart disease. CURRENT MEDICATIONS: Include verapamil 80 mg twice daily. REVIEW OF SYSTEMS: All systems were reviewed and are negative except for that mentioned in the history of present illness. PHYSICAL EXAMINATION: GENERAL: He is alert and oriented. He appears to be in no acute distress. VITAL SIGNS: His blood pressure was 208/114, heart rate 96, respiratory rate of 16, and he is afebrile. HEENT: His pupils are equal, round, and reactive. Extraocular muscles are intact. Sclerae are anicteric. Throat, no erythema, no exudates. NECK: No adenopathy. No bruits. LUNGS: Clear to auscultation. There is no wheezing, no rales, no rhonchi. CARDIOVASCULAR: He had a normal S1, S2. No S3 or S4. No murmurs, clicks, or rubs. ABDOMEN: Soft, nontender, and nondistended. Positive for bowel sounds. There is no rebound, no guarding, no organomegaly. EXTREMITIES: There is no clubbing, cyanosis, no edema. NEUROLOGICAL: He did have slight weakness on the left upper and lower extremities. However, he was able to lift his arm against gravity as well as against resistance, but there was a slight weakness as compared to the right. His cranial nerves were intact. There was no facial droop that I could appreciate. LABORATORY DATA: White blood cell count was 6.0, hemoglobin 17.9, hematocrit is 52.3, and platelet count is 173. His D-dimer was 0.31. His sodium 134, potassium 4.0, chloride is 101, CO2 is 23, BUN of 9, creatinine 0.74, glucose is 92. AST was 91, ALT was 140. Natriuretic peptide was 131. Troponins were 0.018. He had a CT scan of the brain in which there was evidence for some small vessel disease. There was no intracranial hemorrhage and then also on his chest x-ray, heart size is normal. There is no blunting of the costophrenic angles, no evidence of any effusion, no airspace disease. ASSESSMENT: This is a pleasant 53-year-old gentleman who presents to the emergency room with headache as well as what sounds like worsening numbness in his hands and slightly more weak in the left side from his previous stroke. He has been given a trial of hydralazine in the ER with minimal response. He continues to have some neurological symptoms. Even though they are mild, their concern is that we do not have a good handle on blood pressure control. Therefore, we will transfer him to the ICU and place him on a Cardene drip so that hopefully we can achieve better blood pressure control. We will try to maintain him within the range of 150-170 systolic in the 1st 24 hours and then gradually lower his blood pressure further. We will continue to trend his cardiac enzymes and get a repeat EKG in the a.m. He will be placed on DVT and GI prophylaxis and further recommendations to follow. Job ID: [id number]
[2018-11-30 04:45] LABS: #Basophils 0.1 thou/uL (0.0-0.2); #Eosinphils 0.1 thou/uL (0.0-0.7); #Lymphocytes 1.8 thou/uL (1.20-3.40); #Monocytes 0.7 thou/uL (0.11-0.59); %Basophils 1.3 % (0.0-1.0); %Lymphocytes 27.1 % (21.0-51.0); %Neutrophils 60.6 % (42.0-75.0); Mean Corpuscular HGB CONC 34.3 g/dL (32.0-36.0); Mean Corpuscular Hemoglobin 32.1 pg (27.0-31.0); Mean Corpuscular Volume 93.8 fL (78.0-98.0); Platelet Count 156 thou/uL (130-400); RBC Distribution Width 12.1 % (11.5-14.5); Red Blood Cell (RBC) Count 5.59 mill/uL (4.70-6.10); White Blood Cell (WBC) Count 6.6 thou/uL (4.8-10.8)
[2018-11-30 05:05] LABS: Anion Gap 13 mmol/L (10-20); BUN (Urea Nitrogen) 7 mg/dL (8.4-25.7); Calc. Creatinine Clearance 154 mL/min (70-130); Calcium 9.2 mg/dL (7.8-10.44); Carbon Dioxide 21 mmol/L (22-29); Cardiac Risk 3.4 (Less than 4.5); Chloride 104 mmol/L (98-107); Cholesterol 173 mg/dl (< 200 Desired); Estimated GFR-MDRD Greater than 90; Glucose 99 mg/dL (70-105); HDL Cholesterol 51 mg/dL (>60 Neg Risk); LDL Cholesterol, Calculated 111 mg/dL; Potassium 3.5 mmol/L (3.5-5.1); Sodium 134 mmol/L (136-145); Triglycerides 54 mg/dL (Less than 150)
[2018-11-30] MEDS: HYDROcodone/Acetaminophen 5/325 mg Tablet PO PRN ×3 (05:54→18:39)
[2018-11-30] MEDS ORDERED: Aspirin 325 MG TAB PO SCH (09:00)
[2018-11-30] MEDS: hydrALAZINE 25 MG TAB PO SCH ×3 (09:20→20:56)
[2018-11-30] MEDS: Famotidine 20 MG TAB PO SCH ×2 (09:21→20:57)
[2018-11-30] MEDS: Aspirin 81 mg Enteric Coated Tablet PO SCH (09:21)
[2018-11-30] MEDS: Enoxaparin Sodium 40 MG/0.4 ML SYRINGE SC SCH (09:21)
[2018-11-30] MEDS: Verapamil 80 MG TAB PO SCH ×2 (09:25→20:57)
--- NOTE | 2018-11-30 10:24 | PDOC.HOSPP ---
- Subjective Encounter Date: 11/30/18 Encounter Time: 10:22 Subjective: Mr. Burrows was seen today in follow-up of hypertensive urgency. He is feeling a little better today. He notes decreased chest pain. He continues to have numbness in both hands, and has stable left upper extremity weakness. - Objective Vital Signs & Weight: Vital Signs (12 hours) Temp Pulse BP Pulse Ox 11/30/18 09:20 74 161/102 H 11/30/18 08:00 98.2 F 11/30/18 07:40 95 11/30/18 04:00 97.6 F 11/30/18 00:00 98.0 F Weight Weight 196 lb 6.91 oz Most Recent Monitor Data Heart Rate from ECG 71 NIBP 151/99 NIBP BP-Mean 116 Respiration from ECG 22 SpO2 97 I&O: 11/29/18 11/30/18 12/01/18 06:59 06:59 06:59 Intake Total 1141 330 Output Total 1575 300 Balance -434 30 Result Diagrams: 11/30/18 04:23 11/30/18 04:23 ROS - Medication Medications: Active Medications Generic Name Dose Route Start Last Admin Trade Name Freq PRN Reason Stop Dose Admin Hydrocodone Bitart/Acetaminophen 1 tab 11/29/18 18:05 11/30/18 05:54 [place] 5/325 PO 1 tab Q4H PRN Administration Moderate Pain (4-6) Aspirin 81 mg 11/30/18 09:00 11/30/18 09:21 Ecotrin PO 81 mg DAILY SYLVIA Administration Enoxaparin Sodium 40 mg 11/30/18 09:00 11/30/18 09:21 Lovenox SC 40 mg 09 SYLVIA Administration Famotidine 20 mg 11/29/18 21:00 11/30/18 09:21 Pepcid PO 20 mg BID SYLVIA Administration Hydralazine HCl 25 mg 11/30/18 09:00 11/30/18 09:20 Apresoline PO 25 mg TID SYLVIA Administration Nicardipine HCl 25 mg/ Sodium 260 mls @ 0 mls/hr 11/29/18 18:05 11/30/18 01: 40 Chloride IVPB 260 mls INF SYLVIA Administration Protocol Titrate Sodium Chloride 10 ml 11/30/18 09:00 11/30/18 09:22 Flush - Normal Saline IVF 10 ml Q12HR SYLVIA Administration Verapamil HCl 80 mg 11/30/18 09:00 11/30/18 09:25 Calan PO 80 mg BID SYLVIA Administration - Exam Eye: PERRL Heart: RRR, no murmur, no gallops, no rubs Respiratory: CTAB, no wheezes, no rales, no ronchi, normal chest expansion Gastrointestinal: soft, non-tender, normal bowel sounds Extremities: no cyanosis, no clubbing, no edema Neurological: CN's grossly intact (with the exception of mild left sided weakness) Hosp A/P (1) Hypertensive urgency Code(s): I16.0 - HYPERTENSIVE URGENCY Status: Acute (2) Cervical stenosis of spine Code(s): M48.02 - SPINAL STENOSIS, CERVICAL REGION Status: Chronic (3) H/O: CVA (cerebrovascular accident) Code(s): Z86.73 - PRSNL HX OF TIA (TIA), AND CEREB INFRC W/O RESID DEFICITS Status: Chronic (4) Hyperlipidemia Code(s): E78.5 - HYPERLIPIDEMIA, UNSPECIFIED Status: Chronic (5) Hypertension Code(s): I10 - ESSENTIAL (PRIMARY) HYPERTENSION Status: Chronic - Plan * Hypertensive Urgency- He has been weaned off the Cardene drip * Will re-start Verapamil, and will add Hydralazine * Worsening left upper extremity weakness- this may have bee related to elevated blood pressure, or it can be a symptom of his C-spine disease ( along with the bilateral hand numbness) - will check an MRI of the brain to ensure he does not have any new infarct * Hyperlipidemia- will re-start a Statin * Tobacco abuse- discussed smoking cessation * C-Spine disease- follow-up with Dr. Ruvalcaba as an outpatient * He is stable to transition out of the ICU
[2018-11-30] MEDS ORDERED: Labetalol HCl 100 MG/20 ML VIAL SLOW IVP PRN (11:09)
[2018-11-30] MEDS ORDERED: hydrALAZINE 20 MG/ML VIAL SLOW IVP PRN (11:09)
--- NOTE | 2018-11-30 12:36 | MRI ---
EXAM: MRI of the brain without contrast HISTORY: Left arm weakness and bilateral hand numbness COMPARISON: CT brain 11/29/2018; MRI brain 09/03/2018 TECHNIQUE: Multiplanar multisequence MR images were obtained of the brain without IV contrast. FINDINGS: Scattered foci of high T2/FLAIR signal in the subcortical and periventricular white matter are likely secondary to small vessel ischemic disease. There is an area of susceptibility artifact which likely represents hemosiderin deposition in the left periventricular white matter likely from prior r emote hemorrhagic infarction. No restricted diffusion. No hydronephrosis. No extra-axial fluid collection or acute intracranial hemorrhage. The expected flow voids are present. Corpus callosum, pituitary, and craniocervical junction are within normal limits. The calvarium and overlying soft tissues are unremarkable. The paranasal sinuses and mastoid air cells are well aerated. IMPRESSION: No evidence of acute intracranial abnormality.
--- NOTE | 2018-11-30 13:08 | ULT ---
EXAM: Carotid ultrasound HISTORY: Stroke/TIA COMPARISON: 09/03/2018 TECHNIQUE: Multiplanar grayscale and color Doppler images were obtained in a carotid ultrasound. Spec tral analysis of the Doppler waveforms were performed. FINDINGS: No significant plaque is visualized in either internal carotid artery. No significant plaque is seen in either common carotid artery. The Doppler waveforms are normal in the visualized vessels. Peak systolic velocity in the right internal carotid artery 55 cm/s. Peak systolic velocity in the right common carotid artery 57 cm/s. The right ICA/CCA ratio is 1.0. Peak systolic velocity in the left internal carotid artery 61 cm/s. Peak systolic velocity in the left common carotid artery 96 cm/s. The left ICA/CCA ratio is 0.6. Both vertebral arteries demonstrate antegrade flow without focal stenosis IMPRESSION: No evidence of hemodynamically significant stenosis.
[2018-11-30] MEDS: Atorvastatin Calcium 20 MG TAB PO SCH (20:56)
[2018-12-01] MEDS: HYDROcodone/Acetaminophen 5/325 mg Tablet PO PRN ×3 (04:24→14:52)
[2018-12-01] MEDS: hydrALAZINE 25 MG TAB PO SCH ×3 (10:15→21:07)
[2018-12-01] MEDS: Aspirin 81 mg Enteric Coated Tablet PO SCH (10:15)
[2018-12-01] MEDS: Verapamil 80 MG TAB PO SCH ×2 (10:16→21:15)
[2018-12-01] MEDS: Famotidine 20 MG TAB PO SCH ×2 (10:16→21:06)
[2018-12-01] MEDS: Enoxaparin Sodium 40 MG/0.4 ML SYRINGE SC SCH (10:16)
--- NOTE | 2018-12-01 18:32 | PDOC.HOSPP ---
- Subjective Encounter Date: 12/01/18 Encounter Time: 18:20 Subjective: f/u for HTN urgency on Calan/Hydralazine. Stroke work up negative. Feels ok overall except mild frontal ESTES. - Objective Vital Signs & Weight: Vital Signs (12 hours) Temp Pulse Resp BP BP Pulse Ox 12/01/18 16:00 98 F 64 18 143/97 H 95 12/01/18 14:52 61 185/100 H 12/01/18 11:58 98 F 68 18 173/94 H 95 12/01/18 10:20 97 12/01/18 10:15 98.2 F 59 L 15 144/98 H 144/98 H 97 Weight Weight 196 lb 6.91 oz Most Recent Monitor Data Heart Rate from ECG 70 NIBP 139/90 NIBP BP-Mean 106 Respiration from ECG 19 SpO2 96 I&O: 11/30/18 12/01/18 12/02/18 06:59 06:59 06:59 Intake Total 1141 1170 763 Output Total 1575 500 Balance -434 670 763 Result Diagrams: 11/30/18 04:23 11/30/18 04:23 Radiology Reviewed by me: Yes (MRI brain - neg, Carotid sono - neg) EKG Reviewed by me: Yes (Tele - SR) ROS - Medication Medications: Active Medications Generic Name Dose Route Start Last Admin Trade Name Freq PRN Reason Stop Dose Admin Hydrocodone Bitart/Acetaminophen 1 tab 11/29/18 18:05 12/01/18 14:52 [place] 5/325 PO 1 tab Q4H PRN Administration Moderate Pain (4-6) Aspirin 81 mg 11/30/18 09:00 12/01/18 10:15 Ecotrin PO 81 mg DAILY SYLVIA Administration Atorvastatin Calcium 20 mg 11/30/18 21:00 11/30/18 20:56 Lipitor PO 20 mg HS SYLVIA Administration Enoxaparin Sodium 40 mg 11/30/18 09:00 12/01/18 10:16 Lovenox SC 40 mg 0900 SYLVIA Administration Famotidine 20 mg 11/29/18 21:00 12/01/18 10:16 Pepcid PO 20 mg BID SYLVIA Administration Hydralazine HCl 10 mg 11/30/18 11:09 12/01/18 04:25 Apresoline SLOW IVP 10 mg Q4H PRN Administration SBP > 180 and HR < 70 Sodium Chloride 10 ml 11/30/18 09:00 12/01/18 10:16 Flush - Normal Saline IVF 10 ml Q12HR SYLVIA Administration Verapamil HCl 80 mg 11/30/18 09:00 12/01/18 10:16 Calan PO 80 mg BID SYLVIA Administration - Exam NAD, awake alert Eye: PERRL, anicteric sclera ENT: normocephalic atraumatic, no oropharyngeal lesions Neck: supple, symmetric, no JVD, no thyromegaly Heart: RRR, no murmur, no gallops, no rubs Respiratory: CTAB, no wheezes, no rales, no ronchi, normal chest expansion Gastrointestinal: soft, non-tender, non-distended, normal bowel sounds, no palpable masses Extremities: no cyanosis, no clubbing, no edema Skin: normal turgor, no lesions Neurological: CN's grossly intact, no new deficit Musculoskeletal: normal tone, normal strength Psychiatric: normal affect, A&O x 3 Hosp A/P (1) Hypertensive urgency Code(s): I16.0 - HYPERTENSIVE URGENCY Status: Acute Plan: Improved BP trend overall, increase Hydralazine 50mg TID, continue Calan 80mg BID (2) Cervical stenosis of spine Code(s): M48.02 - SPINAL STENOSIS, CERVICAL REGION Status: Chronic Plan: Chronic, refer for outpt Neurosurgical evaluation (3) Chronic hepatitis C Code(s): B18.2 - CHRONIC VIRAL HEPATITIS C Status: Chronic Plan: Supportive mgmt (4) Hyperlipidemia Code(s): E78.5 - HYPERLIPIDEMIA, UNSPECIFIED Status: Chronic Plan: Continue Lipitor 20mg HS (5) Hypertension Code(s): I10 - ESSENTIAL (PRIMARY) HYPERTENSION Status: Chronic Qualifiers: Hypertension type: essential hypertension Qualified Code(s): I10 - Essential (primary) hypertension Plan: Labile, See above (6) Tobacco abuse Code(s): Z72.0 - TOBACCO USE Status: Chronic Plan: Smoking cessation resources - Plan out of bed/ambulate, DVT proph w/SCDs Stable overall Increase Hydralazine 50mg TID Continue Calan 80mg BID OOB/ambulate Home in am 12/02/18
[2018-12-01] MEDS: Atorvastatin Calcium 20 MG TAB PO SCH (21:06)
[2018-12-02 07:46] VITALS: TEMP 98.8
[2018-12-02] MEDS: hydrALAZINE 25 MG TAB PO SCH ×2 (08:55→12:08)
[2018-12-02] MEDS: Enoxaparin Sodium 40 MG/0.4 ML SYRINGE SC SCH (08:55)
[2018-12-02] MEDS: Famotidine 20 MG TAB PO SCH (08:56)
[2018-12-02] MEDS: Aspirin 81 mg Enteric Coated Tablet PO SCH (08:56)
[2018-12-02] MEDS: Verapamil 80 MG TAB PO SCH (08:56)
--- NOTE | 2018-12-02 11:32 | DIS ---
DATE OF ADMISSION: 11/29/2018 DATE OF DISCHARGE: 12/02/2018 DISCHARGE DIAGNOSES: 1. Hypertensive urgency, improved. 2. Cervical spine stenosis, chronic. 3. Chronic hepatitis C. 4. Hyperlipidemia. 5. Hypertension, labile. 6. Tobacco abuse. CONSULTATIONS: None. PERTINENT LAB AND X-RAY FINDINGS: AST 91, ALT 140, alkaline phosphatase 71, total bilirubin 0.6. BNP 131. Albumin 4.1. Total cholesterol 173, triglycerides 54, HDL 51, LDL 111. Lipase 33. CBC within normal limits. Portable chest x-ray dated 11/29/2018 showed no acute cardiopulmonary process. CT of the brain dated 11/29/2018 showed small-vessel ischemic changes without acute process. MRI of the brain dated 11/30/2018 showed no acute intracranial process. Carotid Doppler study dated 11/30/2018 showed no hemodynamically significant stenosis. 2D transthoracic echocardiogram dated 11/30/2018 showed ejection fraction of 60% to 65% with grade 1/3 diastolic dysfunction. HOSPITAL COURSE: The patient was initially admitted to the stroke unit after presenting with left upper extremity weakness with some right hand numbness. The patient underwent extensive evaluation including stroke workup with CT and MRI imaging of the brain showing no acute process. The patient was ruled out for acute CVA as stated previously with negative carotid Doppler study and 2D transthoracic echocardiogram showing preserved ejection fraction. The patient was noted with hypertensive urgency and initially placed on a Cardene infusion for blood pressure control. The patient continued to have labile hypertension with the addition of hydralazine to his current regimen of verapamil. The patient was titrated to current regimen of hydralazine 75 mg t.i.d. with Calan 80 mg b.i.d. The patient may need additional titration of his antihypertensive regimen on an ongoing basis after discharge. Overall, the patient did remain clinically stable during the hospital course, tolerating regular oral intake with telemetry monitoring showing a sinus mechanism with heart rates in the 60s. I have examined the patient at the time of discharge and discussed followup instructions. The patient verbalizes understanding and in agreement and ready for discharge on 12/02/2018. DISCHARGE MEDICATIONS: 1. Verapamil 80 mg p.o. t.i.d. 2. Enteric-coated aspirin 81 mg p.o. daily. 3. Lipitor 20 mg p.o. q.h.s. 4. Hydralazine 75 mg p.o. t.i.d. FOLLOWUP: The patient may follow up with his primary care provider, Tessie Hammonds in [place], [place] within 7 days of discharge. The patient may follow up with [facility] for evaluation of cervical spine stenosis. CONDITION ON DISCHARGE: Stable. ACTIVITY: Ad barrie. DIET: Heart healthy. CODE STATUS: Full. DISPOSITION: To home, 12/02/2018. TIME SPENT: Total time preparing and coordinating discharge, 32 minutes. Job ID: [id number]
[2018-12-02 12:47] VITALS: BP 173/100
--- NOTE | 2018-12-02 16:59 | EKG ---
Test Reason : ROUTINE Blood Pressure : / mmHG Vent. Rate : 092 BPM Atrial Rate : 092 BPM P-R Int : 112 ms QRS Dur : 110 ms QT Int : 380 ms P-R-T Axes : 030 068 031 degrees QTc Int : 469 ms Sinus rhythm with Premature supraventricular complexes Nonspecific ST abnormality Abnormal ECG When compared with ECG of 02-SEP-2018 19:14, No significant change was found Confirmed by MICHAEL BECKMAN, . S. (4) on 12/02/2018 4:58:50 PM Referred By: Cristopher CLARK Confirmed By:DR. Jorge RODRIGUEZ MD
== END 2018-12-02 12:45 | disposition home or self-care (01) | DRG 305 ==
LOC: ERS 12:24 → 2SW 13:52 → OBSVTOIN 13:52 → CCU 18:47 → 2SE 11-30 12:37
PROVIDERS: ADMIT Internal Medicine; ATTEND Internal Medicine
DX: I16.0 Hypertensive urgency (principal); I69.354 Hemiplegia and hemiparesis following cerebral infarction affecting left non-dominant side; F17.210 Nicotine dependence, cigarettes, uncomplicated; I10 Essential (primary) hypertension; E78.00 Pure hypercholesterolemia, unspecified; M48.02 Spinal stenosis, cervical region; B18.2 Chronic viral hepatitis C; F12.90 Cannabis use, unspecified, uncomplicated; Z79.899 Other long term (current) drug therapy; Z90.49 Acquired absence of other specified parts of digestive tract; Z79.82 Long term (current) use of aspirin
CPT/HCPCS: 36415; 36416; 70450; 70551; 71045; 80048; 80053; 80061; 82550; 83690; 83880; 84484; 85025; 85379; 93005; 93010; 93306; 93880; 94760; 96374; J0360; J1650; J7050

== ENCOUNTER 2019-04-20 08:11 | Inpatient (IN) | payer SELFPAY ==
--- NOTE | 2019-04-20 08:50 | CT ---
CT Brain WO Con History: Hypertension. Headache. Comparison: CT brain November 29, 2018 Findings: Mild calcification of the tentorium. There is ossification of the anterior falx. Extensive periventricular and basal ganglia lacunar infarctions, chronic. No acute territorial infarct or hemorrhage. Hypodensity of the anterior left insula is similar. The paranasal sinuses and mastoids are relatively clear. Old left cerebellar infarct. Impression: Extensive chronic findings. No acute intracranial abnormality.
--- NOTE | 2019-04-20 08:55 | RAD ---
XR Chest 1 View Portable History: Chest pain Comparison: Radiograph November 29, 2018 Findings: Lungs are clear. No pneumothorax or effusion. Cardiac silhouette and mediastinal contours a re within normal limits. Impression: No acute intrathoracic abnormality nor significant change.
[2019-04-20 09:34] LABS: #Basophils 0.1 thou/uL (0.0-0.2); #Eosinphils 0.1 thou/uL (0.0-0.7); #Lymphocytes 2.2 thou/uL (1.20-3.40); #Monocytes 0.7 thou/uL (0.11-0.59); %Basophils 1.2 % (0.0-1.0); %Eosinophils 1.9 % (0.0-10.0); %Lymphocytes 30.2 % (21.0-51.0); %Monocytes 9.8 % (0.0-10.0); %Neutrophils 56.9 % (42.0-75.0); Hemoglobin 16.9 g/dL (14.0-18.0); Mean Corpuscular HGB CONC 34.2 g/dL (32.0-36.0); Mean Corpuscular Hemoglobin 31.7 pg (27.0-31.0); Mean Corpuscular Volume 92.6 fL (78.0-98.0); Mean Platelet Volume 8.9 fL (7.4-10.4); Platelet Count 195 thou/uL (130-400); RBC Distribution Width 11.6 % (11.5-14.5); Red Blood Cell (RBC) Count 5.33 mill/uL (4.70-6.10); White Blood Cell (WBC) Count 7.1 thou/uL (4.8-10.8)
[2019-04-20 09:54] LABS: ALT (SGPT) 138 U/L (8-55); AST (SGOT) 76 U/L (5-34); Albumin 4.1 g/dL (3.5-5.0); Alkaline Phosphatase 64 U/L (40-110); Anion Gap 13 mmol/L (10-20); BUN (Urea Nitrogen) 11 mg/dL (8.4-25.7); Bilirubin, Total 0.7 mg/dL (0.2-1.2); CK (CPK) 31 U/L (30-200); Calc. Creatinine Clearance 0 mL/min (70-130); Calcium 9.7 mg/dL (7.8-10.44); Carbon Dioxide 27 mmol/L (22-29); Chloride 102 mmol/L (98-107); Estimated GFR-MDRD 82; Globulin 4.3 g/dL (2.4-3.5); Glucose 91 mg/dL (70-105); Potassium 5.1 mmol/L (3.5-5.1); Protein, Total 8.4 g/dL (6.0-8.3); Sodium 137 mmol/L (136-145)
[2019-04-20 10:16] LABS: CKMB 0.7 ng/mL (0-6.6)
[2019-04-20] MEDS ORDERED: Aspirin Chewable 81 MG TAB ONE (10:16)
[2019-04-20] MEDS ORDERED: Metoprolol Tartrate 5 MG/5 ML VIAL ONE (10:16)
[2019-04-20 10:35] LABS: Bilirubin Negative (Negative); Blood, Urine Negative (Negative); Clarity Clear (Clear); Glucose, Urine (Dipstick) Normal (Negative); Leukocyte Negative Leu/uL (Negative); Nitrite Negative (Negative); Protein, Urine (Dipstick) Negative (Neg-Trace); Urobilinogen Normal mg/dL (Less than 2)
--- NOTE | 2019-04-20 10:52 | PDOC.HHP ---
Hospitalist HPI - History of Present Illness Dizziness; SOB History of Present Illness: 53 yo with PMH of CAD, CVA, HTN presented to ER due to headache, dizziness and SOB. He states that he has had worsening headache of 6/10 intensity all over his head for the past 2 days. He was helping out his friend yesterday when he started experiencing some dizziness and hence, he went home and slept for a long time. He describes the dizziness as sensation of "passing out". However, he did not pass out yesterday. He was extremely tired yesterday. He reports new onset shortness of breath that worsens with minimal exertion; this started yesterday. Denies orthopnea but reports PND. He denies recent changes in weight , swelling in legs, rash or bruising. He reports chest tightness. Denies palpitations, vertigo. He reports worsening cough with yellow sputum; no hemoptysis. He reports wheezing. Reports nausea but no vomiting. Has constipation but no diarrhea. He has some left abdominal pain due to fall from syncope 1 week ago. 1 week ago, as he was getting food from his fridge, he reports feeling lightheaded and passing out. Not aware of the duration but denies tongue bite, bowel or bladder incontinence. Denies hitting his head but states he hurt his right elbow and abdomen on the left side. No fever, chills. No urinary symptoms. He reports chronic arm and leg weakness - he has intermittent foot drop on both legs; reports dropping objects from both hands. He doesn't see neurology or neurosurgery due to lack of insurance. He states this has been getting worse. He reports tingling in his arms. Reports injuries in his legs that he is unaware of. 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 - Past Surgical History Other Surgical History: Right CEA - Family History Family History: reports: cardiac disorder (father; brothers), hypertension ( parents; brothers) - Social History Smoking Status: Current every day smoker (1/2 PPD) Tobacco Type: cigarettes Alcohol: reports: Occassional Drugs: reports: marijuana Living Situation: Alone Activity level: uses cane/walker - Exam General Appearance: awake alert, ill appearing Eye: PERRL, anicteric sclera ENT: normocephalic atraumatic, no oropharyngeal lesions, moist mucosa Neck: supple, symmetric, no JVD, no thyromegaly, no lymphadenopathy Heart: no murmur, no gallops, no rubs, normal peripheral pulses Heart - other findings: bradycardia present Respiratory: no rales, no ronchi, no tachypnea, wheezes (intermittent end expiratory bilaterally) Respiratory - other findings: reduced air entry bilaterally Gastrointestinal: soft, non-distended, normal bowel sounds, no palpable masses, no bruit, no guarding, no rigidity, tender to palpation (left lumbar region) Extremities: no cyanosis, no clubbing, no edema Skin: normal turgor, no lesions, no rashes Neurological: cranial nerve grossly intact, normal sensation to touch Musculoskeletal: normal tone, no muscle wasting Musculoskeletal - other findings: strength of 4+/5 in both lower extremities and left UE Psychiatric: normal affect, normal behavior, A&O x 3 Hospitalist Results - Labs Result Diagrams: 04/20/19 09:20 04/20/19 09:20 Lab results: WBC 7.1 thou/uL (4.8-10.8) 04/20/19 09:20 Hgb 16.9 g/dL (14.0-18.0) 04/20/19 09:20 Hct 49.4 % (42.0-52.0) 04/20/19 09:20 MCV 92.6 fL (78.0-98.0) 04/20/19 09:20 Plt Count 195 thou/uL (130-400) 04/20/19 09:20 Neutrophils % 56.9 % (42.0-75.0) 04/20/19 09:20 Sodium 137 mmol/L (136-145) 04/20/19 09:20 Potassium 5.1 mmol/L (3.5-5.1) 04/20/19 09:20 Chloride 102 mmol/L (98-107) 04/20/19 09:20 Carbon Dioxide 27 mmol/L (22-29) 04/20/19 09:20 BUN 11 mg/dL (8.4-25.7) 04/20/19 09:20 Creatinine 0.96 mg/dL (0.7-1.3) 04/20/19 09:20 Glucose 91 mg/dL (70-105) 04/20/19 09:20 Calcium 9.7 mg/dL (7.8-10.44) 04/20/19 09:20 Total Bilirubin 0.7 mg/dL (0.2-1.2) 04/20/19 09:20 AST 76 U/L (5-34) H 04/20/19 09:20 ALT 138 U/L (8-55) H 04/20/19 09:20 Alkaline Phosphatase 64 U/L (40-110) 04/20/19 09:20 Creatine Kinase 31 U/L (30-200) 04/20/19 09:20 CK-MB (CK-2) 0.7 ng/mL (0-6.6) 04/20/19 09:20 Troponin I 0.048 ng/mL (< 0.028) H 04/20/19 09:20 B-Natriuretic Peptide 62.3 pg/mL (0-100) 04/20/19 09:19 Serum Total Protein 8.4 g/dL (6.0-8.3) H 04/20/19 09:20 Albumin 4.1 g/dL (3.5-5.0) 04/20/19 09:20 Urine Ketones Negative mg/dL (Negative) 04/20/19 10:08 Urine Blood Negative (Negative) 04/20/19 10:08 Urine Nitrite Negative (Negative) 04/20/19 10:08 Ur Leukocyte Esterase Negative Virgil/uL (Negative) 04/20/19 10:08 - EKG Interpretation EKG: Personally reviewed - Sinus bradycardia; T-inversions in leads III & aVF - Radiology Interpretation Chest x-ray Status: image reviewed by me (No acute consolidation or CP angle blunting) Hospitalist H&P A/P - Problem (1) NSTEMI (non-ST elevated myocardial infarction) Code(s): I21.4 - NON-ST ELEVATION (NSTEMI) MYOCARDIAL INFARCTION Status: Acute Assessment and Plan: Admit to inpatient status High risk due to risk of lethal arrhythmias and need for further work up and management Expected to stay at least 2 midnights Cardio consult ASA, Plavix load; then, daily Full dose lovenox for now Cycle enzymes Nitro patch No BB due to bradycardia May need LHC given 80% stenosis of OM-2 in 2013 on cath Morphine IV PRN pain (2) Hypertensive urgency Code(s): I16.0 - HYPERTENSIVE URGENCY Status: Acute Assessment and Plan: Resume hydralazine Start PO procardia Nitro patch Monitor BP and adjust meds as needed Cardio consulted (3) COPD (chronic obstructive pulmonary disease) Status: Chronic Qualifiers: COPD type: COPD with acute exacerbation Qualified Code(s): J44.1 - Chronic obstructive pulmonary disease with (acute) exacerbation Assessment and Plan: Prednisone and doxycycline PO for 5 days Ipratropium ATC DuoNebs PRN (4) CAD (coronary artery disease) Code(s): I25.10 - ATHSCL HEART DISEASE OF [place] CORONARY ARTERY W/O ANG PCTRS Status: Chronic Qualifiers: Coronary Disease-Associated Artery/Lesion type: [place] artery [place] vs. transplanted heart: [place] heart Associated angina: angina presence unspecified Qualified Code(s): I25.10 - Atherosclerotic heart disease of [place] coronary artery without angina pectoris Assessment and Plan: LHC in 2013 with 80% stenosis OM-2 and 50-60% stenosis of OM-1 Now with suspected NSTEMI Cardio consulted ASA, plavix, statin therapy No BB due to bradycardia (5) Cervical stenosis of spine Code(s): M48.02 - SPINAL STENOSIS, CERVICAL REGION Status: Chronic Assessment and Plan: Repeat MRI C-spine due to progressively worsening lesions (6) H/O carotid endarterectomy Code(s): Z98.890 - OTHER SPECIFIED POSTPROCEDURAL STATES Status: Chronic Assessment and Plan: ASA, plavix and statin therapy (7) H/O: CVA (cerebrovascular accident) Code(s): Z86.73 - PRSNL HX OF TIA (TIA), AND CEREB INFRC W/O RESID DEFICITS Status: Chronic Assessment and Plan: ASA, plavix and statin therapy (8) Hyperlipidemia Code(s): E78.5 - HYPERLIPIDEMIA, UNSPECIFIED Status: Chronic Qualifiers: Hyperlipidemia type: other hyperlipidemia Qualified Code(s): E78.49 - Other hyperlipidemia; E78.4 - Other hyperlipidemia Assessment and Plan: Statin therapy (9) Hypertension Code(s): I10 - ESSENTIAL (PRIMARY) HYPERTENSION Status: Chronic Qualifiers: Hypertension type: essential hypertension Qualified Code(s): I10 - Essential (primary) hypertension Assessment and Plan: Now with HTN urgency Mgmt. as above (10) Tobacco abuse Code(s): Z72.0 - TOBACCO USE Status: Chronic Assessment and Plan: Counselled regarding cessation. Pt. ready to quit No NRT due to active ID - Plan Plan: CODE STATUS - FULL CODE
[2019-04-20] MEDS ORDERED: Nitroglycerin 2% Ointment 1 INCH/1 GM Packet TOP SCH ×2 (11:00→21:00)
[2019-04-20] MEDS ORDERED: NIFEdipine XL 30 MG TAB PO SCH (11:00)
[2019-04-20] MEDS ORDERED: Enoxaparin Sodium 80 MG/0.8 ML SYRINGE ONE (11:07)
[2019-04-20] MEDS ORDERED: Enoxaparin Sodium 100 MG/ML SYRINGE ONE (11:07)
[2019-04-20] MEDS ORDERED: Clopidogrel Bisulfate 300 MG TAB PO SCH (11:15)
[2019-04-20] MEDS ORDERED: Aspirin 325 mg Enteric Coated Tablet PO ONE (11:16)
[2019-04-20] MEDS ORDERED: Morphine 2 MG/ML SYRINGE SLOW IVP PRN (11:26)
[2019-04-20] MEDS ORDERED: Ondansetron PF 4 MG/2 ML Vial IVP PRN (11:28)
[2019-04-20] MEDS ORDERED: predniSONE 50 MG TAB PO SCH (11:30)
[2019-04-20] MEDS ORDERED: Nitroglycerin 2% Ointment 1 INCH/1 GM Packet ONE (11:37)
[2019-04-20 14:29] LABS: Troponin I 0.011 ng/mL (< 0.028)
--- NOTE | 2019-04-20 15:10 | MRI ---
EXAM: MRI cervical spine without contrast HISTORY: Neck pain for 5 months with dizziness and difficulty walking COMPARISON: 09/03/2018 TECHNIQUE: Multiplanar multisequence MR images were obtained of the cervical spine without contrast. FINDINGS: The vertebral bodies and intervertebral discs demonstrate normal height and alignment without fractur e or subluxation. Generalized disc desiccation is seen. The visualized cord demonstrates normal signal throughout. The craniocervical junction is unremarkab le. The prevertebral soft tissues are unremarkable. No paraspinal soft tissue abnormality is seen. C2/3: Small disc osteophyte complex. Mild left posterior facet arthrosis. No central canal stenosis . Mild bilateral neural foraminal stenosis. C3/4: Moderate disc osteophyte complex. Moderate bilateral posterior facet arthrosis. Severe centra l canal stenosis. Severe bilateral neural foraminal stenosis. C4/5: Moderate disc osteophyte complex. Moderate bilateral posterior facet arthrosis. Severe centra l canal stenosis. Moderate to severe bilateral neural foraminal stenosis. C5/6: Small disc osteophyte complex. No posterior facet arthrosis. Mild central canal stenosis. Mi ld bilateral neural foraminal stenosis. C6/7: No significant posterior bulge or protrusion. No posterior facet arthrosis. No central canal stenosis. No neural foraminal stenosis. C7/T1: No significant posterior bulge or protrusion. No posterior facet arthrosis. No central canal stenosis. No neural foraminal stenosis. IMPRESSION: Degenerative changes of the cervical spine as above. When compared to the prior examination, these ch anges are stable.
[2019-04-20 16:31] VITALS: BMI 28.0
[2019-04-20] MEDS: Ipratropium Bromide 2.5 ml Neb NEB SCH ×3 (16:44→22:58)
[2019-04-20] MEDS: hydrALAZINE 25 MG TAB PO SCH ×2 (16:50→21:45)
[2019-04-20] MEDS: Acetaminophen 325 MG TAB PO PRN ×2 (16:50→21:46)
[2019-04-20 18:06] LABS: Troponin I Less than 0.010 ng/mL (< 0.028)
[2019-04-20] MEDS ORDERED: Carvedilol 3.125 MG TAB PO SCH (20:00)
[2019-04-20] MEDS: Doxycycline 100 MG CAP PO SCH (21:44)
[2019-04-20] MEDS: Atorvastatin Calcium 40 MG TAB PO SCH (21:45)
[2019-04-20] MEDS: Enoxaparin Sodium 80 MG/0.8 ML SYRINGE SC SCH (21:45)
[2019-04-20] MEDS: Ipratropium Bromide 2.5 ml Neb ONE (22:54)
[2019-04-21] MEDS: Ipratropium Bromide 2.5 ml Neb ONE ×2 (02:39→20:35)
[2019-04-21] MEDS: Ipratropium Bromide 2.5 ml Neb NEB SCH ×6 (02:40→22:22)
--- NOTE | 2019-04-21 02:56 | CON ---
DATE OF CONSULTATION: 04/20/2019 REASON FOR CONSULTATION: Uncontrolled hypertension, history of coronary artery disease, indeterminate troponin. HISTORY OF PRESENT ILLNESS: Mr. Burrows is a 53-year-old gentleman. The patient has a history of coronary artery disease. He underwent cardiac catheterization by Dr. Ortega in 2012. At that time, he was found to have some stenosis in the obtuse marginal branches and a mild plaque in the right coronary, but no obstructive stenosis of any major vessel. The patient has not come back for followup since that time from a cardiac standpoint. He has a history of hypertension, has been difficult to control apparently. He developed edema on the amlodipine, unknown dose. It is also noted that he had an "allergy" on lisinopril, but I do not know what that problem was. The patient states his blood pressure has been very high for the last few weeks. He said this morning he just did not feel right. He has been taking his blood pressure at home, it was very high 190 to 200 systolic. Finally called an ambulance and they told him that the blood pressure was about 190/140. They encouraged him to come to the hospital and get checked out. He said his chest felt "stiff" when his blood pressure gets that high. He is feeling fine now. PAST MEDICAL HISTORY: As mentioned, he has; 1. Coronary artery disease. 2. Smoking, he still smokes, but he is down to few cigarettes per day, he is trying to quit, he started smoking at age 13. 3. Hypercholesterolemia. 4. Chronically increased liver function tests. MEDICATIONS: At home included hydralazine 75 mg 3 times a day and atorvastatin 20 mg a day, he takes aspirin on occasion. ALLERGIES: ALLERGY OR INTOLERANCE TO AMLODIPINE AND LISINOPRIL OUTLINED ABOVE. SOCIAL HISTORY: Says he drinks alcohol occasionally. FAMILY HISTORY: The patient also complains of chronic arm and leg weakness. The patient has a history of right carotid endarterectomy. PHYSICAL EXAMINATION: GENERAL: This is a pleasant gentleman, getting a breathing treatment. VITAL SIGNS: Blood pressure 162/90, pulse 76 and regular. HEENT: Eyes, sclerae nonicteric. Mouth, mucous membranes moist. NECK: Supple. No lymphadenopathy. LUNGS: Clear. No wheezing, rales, or rhonchi. CARDIAC: Normal S1, normal S2. There is no murmur, rub, or gallop. ABDOMEN: Soft, nontender. EXTREMITIES: No clubbing or cyanosis. There is no edema. Peripheral pulses are all present. PERTINENT LABORATORY DATA: His potassium is 5.1, creatinine is 0.96. Cholesterol 173, LDL is 111 that is back in November. Troponins are indeterminate at 0.013, one reading and the peak of 0.048 still in the indeterminate range. EKG, sinus rhythm, one episode of sinus bradycardia, some nonspecific T-wave changes in the inferior leads. ASSESSMENT: 1. Uncontrolled hypertension. 2. Coronary artery disease. 3. Chronically increased liver function tests. 4. Hypercholesterolemia. PLAN: 1. I agree with nifedipine. 2. We will add low-dose carvedilol. 3. Continue hydralazine. 4. Stress testing to further risk stratify, looks like the main problem has been uncontrolled hypertension. 5. Encouraged him to continue to work to quit smoking. 6. Recheck lipid profile tomorrow. If the patient has significant ischemia, repeat catheterization maybe indicated. Job ID: [id number]
[2019-04-21 05:04] LABS: #Lymphocytes 2.8 thou/uL (1.20-3.40); #Monocytes 0.8 thou/uL (0.11-0.59); #Neutrophils 5.4 thou/uL (1.40-6.50); %Basophils 0.3 % (0.0-1.0); %Eosinophils 0.5 % (0.0-10.0); %Lymphocytes 30.6 % (21.0-51.0); %Monocytes 8.4 % (0.0-10.0); %Neutrophils 60.2 % (42.0-75.0); Hemoglobin 15.5 g/dL (14.0-18.0); Mean Corpuscular HGB CONC 33.4 g/dL (32.0-36.0); Mean Corpuscular Volume 92.7 fL (78.0-98.0); Mean Platelet Volume 9.3 fL (7.4-10.4); Platelet Count 190 thou/uL (130-400); RBC Distribution Width 11.6 % (11.5-14.5); Red Blood Cell (RBC) Count 5.01 mill/uL (4.70-6.10)
[2019-04-21 05:31] LABS: ALT (SGPT) 103 U/L (8-55); AST (SGOT) 47 U/L (5-34); Albumin 3.6 g/dL (3.5-5.0); Alkaline Phosphatase 62 U/L (40-110); Anion Gap 11 mmol/L (10-20); BUN (Urea Nitrogen) 15 mg/dL (8.4-25.7); Bilirubin, Total 0.5 mg/dL (0.2-1.2); Calc. Creatinine Clearance 134 mL/min (70-130); Calcium 9.2 mg/dL (7.8-10.44); Carbon Dioxide 23 mmol/L (22-29); Chloride 105 mmol/L (98-107); Estimated GFR-MDRD Greater than 90; Globulin 4.1 g/dL (2.4-3.5); Glucose 108 mg/dL (70-105); Potassium 3.7 mmol/L (3.5-5.1); Protein, Total 7.7 g/dL (6.0-8.3); Sodium 135 mmol/L (136-145)
[2019-04-21] MEDS: NIFEdipine XL 30 MG TAB PO SCH (06:16)
--- NOTE | 2019-04-21 07:23 | PDOC.HOSPP ---
- Subjective Encounter Date: 04/21/19 Encounter Time: 07:18 Subjective: much better, no chest pain , sob, etc - Objective Vital Signs & Weight: Vital Signs (12 hours) Temp Pulse Resp BP BP Pulse Ox 04/21/19 06:16 55 L 139/80 04/21/19 04:00 97.8 F 65 16 145/83 H 95 04/21/19 02:40 75 16 95 04/20/19 23:28 98.4 F 62 18 138/71 95 04/20/19 23:00 134/76 04/20/19 22:58 77 16 96 04/20/19 21:45 77 132/79 04/20/19 20:20 96 04/20/19 20:00 98.2 F 79 18 161/86 H 96 Weight Weight 190 lb 5 oz I&O: 04/20/19 04/21/19 04/22/19 06:59 06:59 06:59 Intake Total 300 Balance 300 Result Diagrams: 04/21/19 04:44 04/21/19 04:44 Hospitalist ROS - Medication Medications: Active Medications Generic Name Dose Route Start Last Admin Trade Name Freq PRN Reason Stop Dose Admin Acetaminophen 650 mg 04/20/19 11:28 04/20/19 21:46 Tylenol PO 650 mg Q4H PRN Administration Headache/Fever/Mild Pain (1-3) Atorvastatin Calcium 80 mg 04/20/19 21:00 04/20/19 21:45 Lipitor PO 80 mg HS SYLVIA Administration Doxycycline Hyclate 100 mg 04/20/19 21:00 04/20/19 21:44 Vibramycin PO 100 mg BID SYLVIA Administration Enoxaparin Sodium 80 mg 04/20/19 21:00 04/20/19 21:45 Lovenox SC 80 mg 0900,2100 SYLVIA Administration Hydralazine HCl 75 mg 04/20/19 15:00 04/20/19 21:45 Apresoline PO 75 mg TID SYLVIA Administration Ipratropium [place] 2.5 ml 04/20/19 14:30 04/21/19 02:40 Atrovent NEB 2.5 ml [id number] SYLVIA Administration Nifedipine 30 mg 04/21/19 06:00 04/21/19 06:16 Procardia Xl PO 30 mg 0600 SYLVIA Administration - Exam General Appearance: awake alert Neck: no JVD Heart: RRR, no murmur Respiratory: CTAB, no wheezes Gastrointestinal: soft, non-distended Extremities: no edema Hosp A/P (1) Hypertensive urgency Code(s): I16.0 - HYPERTENSIVE URGENCY Status: Acute (2) CAD (coronary artery disease) Code(s): I25.10 - ATHSCL HEART DISEASE OF [place] CORONARY ARTERY W/O ANG PCTRS Status: Chronic Qualifiers: Coronary Disease-Associated Artery/Lesion type: [place] artery [place] vs. transplanted heart: [place] heart Associated angina: angina presence unspecified Qualified Code(s): I25.10 - Atherosclerotic heart disease of [place] coronary artery without angina pectoris (3) COPD (chronic obstructive pulmonary disease) Status: Chronic Qualifiers: COPD type: COPD with acute exacerbation Qualified Code(s): J44.1 - Chronic obstructive pulmonary disease with (acute) exacerbation (4) Abnormal LFTs Code(s): R94.5 - ABNORMAL RESULTS OF LIVER FUNCTION STUDIES Status: Chronic (5) Hyperlipidemia Code(s): E78.5 - HYPERLIPIDEMIA, UNSPECIFIED Status: Chronic Qualifiers: Hyperlipidemia type: other hyperlipidemia Qualified Code(s): E78.49 - Other hyperlipidemia; E78.4 - Other hyperlipidemia (6) Tobacco abuse Code(s): Z72.0 - TOBACCO USE Status: Chronic - Plan long hx uncontrolled BP, now in reasonable range, discuss with Cardiology, suspect home soon
[2019-04-21] MEDS ORDERED: NIFEdipine XL 30 MG TAB PO SCH (09:00)
[2019-04-21] MEDS: Carvedilol 3.125 MG TAB PO SCH ×2 (10:42→17:03)
[2019-04-21] MEDS: predniSONE 50 MG TAB PO SCH (10:42)
[2019-04-21] MEDS: Enoxaparin Sodium 80 MG/0.8 ML SYRINGE SC SCH ×2 (10:43→20:38)
[2019-04-21] MEDS: Doxycycline 100 MG CAP PO SCH ×2 (10:43→20:38)
[2019-04-21] MEDS: Clopidogrel Bisulfate 75 MG TAB PO SCH (10:43)
[2019-04-21] MEDS: Aspirin 81 mg Enteric Coated Tablet PO SCH (10:43)
[2019-04-21] MEDS: Ezetimibe 10 MG TAB PO SCH (10:43)
[2019-04-21] MEDS: hydrALAZINE 25 MG TAB PO SCH ×3 (10:43→20:38)
--- NOTE | 2019-04-21 11:16 | NM ---
CARDIAC SPECT: HISTORY: A 53-year-old male with chest pain, CT, CVA, hypertension, and dyslipidemia. TECHNIQUE: A myocardial perfusion scan was performed using the single isotope one day protocol with technetium 9 9m sestamibi and 11 millicuries was injected intravenously for the rest exam followed by 28 millicuri es for the stress study. Pharmacologic stress with Lexiscan was monitored and interpreted by Dr. Charity neal. FINDINGS: A small fixed defect is seen in the apex. No reversible defects are seen. GATED SPECT LVEF: 57%. WALL MOTION EXAM: No significant wall motion abnormalities are seen. IMPRESSION: No evidence of reversible ischemia. POS: OFF
[2019-04-21] MEDS ORDERED: Regadenoson 0.4 MG/5 ML SYRINGE ONE (16:25)
[2019-04-21] MEDS: Atorvastatin Calcium 40 MG TAB PO SCH (20:38)
[2019-04-21] MEDS ORDERED: Atorvastatin Calcium 40 MG TAB PO SCH (21:25)
--- NOTE | 2019-04-21 21:57 | PRG ---
DATE OF SERVICE: 04/21/2019 SUBJECTIVE: Mr. Burrows did well today. He had a stress testing showing no ischemia. His blood pressure is 140/85, pulse 70. I asked the patient about lisinopril as being a possible allergy, he says he has not had any problem with lisinopril. I asked him if he ever coughed with lisinopril, he said no. CURRENT MEDICATION: He is on; 1. Procardia XL 30 mg a day. 2. Carvedilol, we will increase to 6.25 mg twice a day. 3. Aspirin and Plavix. 4. Atorvastatin 40 mg a day. 5. Hydralazine 75 mg 3 times a day. 6. Zetia 10 mg a day. PLAN: The patient is to be released home tomorrow. Job ID: [id number]
[2019-04-22] MEDS: Ipratropium Bromide 2.5 ml Neb NEB SCH ×3 (02:47→11:20)
[2019-04-22] MEDS: NIFEdipine XL 30 MG TAB PO SCH (05:37)
[2019-04-22] MEDS ORDERED: Carvedilol 6.25 MG TAB PO SCH (08:00)
[2019-04-22] MEDS ORDERED: Lisinopril 5 MG TAB PO SCH (09:00)
--- NOTE | 2019-04-22 09:43 | DIS ---
DATE OF ADMISSION: 04/20/2019 DATE OF DISCHARGE: 04/22/2019 PRIMARY CARE PROVIDER: Tessie Hammonds. DISPOSITION: Discharged home. FINAL DIAGNOSES: Hypertensive urgency, chronic obstructive pulmonary disease with exacerbation, coronary artery disease, dyslipidemia, and tobacco abuse. DISCHARGE MEDICATIONS: 1. Lipitor 40 mg a day. 2. Coreg 6.25 mg twice a day. 3. Plavix 75 mg a day. 4. Zetia 10 mg a day. 5. Hydralazine 75 mg p.o. t.i.d. 6. Lisinopril 5 mg a day. 7. Medrol Dosepak start 04/23/19. 8. Nifedipine 30 mg a day. ALLERGIES: AMLODIPINE. THERE IS QUESTIONABLE HISTORY OF LISINOPRIL. DR. RECIO WENT OVER THIS IN DETAIL AND GOT NO SYMPTOM COMPLEX, APPARENTLY AN ERROR. DIET: Heart healthy. PENDING AT TIME OF DISCHARGE: Nothing. CODE STATUS: Full. HOSPITAL COURSE: The patient was admitted to the [facility] through [facility]. Seen in consultation by Dr. Recio. No procedures were done. The patient's initial presentation, headache, dizziness, and shortness of breath. The patient was found to be hypertensive. Given treatment for COPD. Initial blood pressures in the 160/100 range, which have now come down 130/84. Chest is clear. His laboratory, initial troponin was elevated to 0.048, followup was 0.011 and 0.010. Comprehensive metabolic profile showed some minimal elevation of transaminases, otherwise unremarkable. CBC was normal. Nuclear medicine cardiac stress test was done reveal no reversible ischemia. The patient is currently doing well, well controlled. He is being discharged on the medicines as presented with exception of the Medrol Dosepak was an error, and has been deselected from his list. He has been instructed to follow up with Tessie Hammonds in three days. Prescriptions have been written. Job ID: [id number] MTDD
[2019-04-22] MEDS: Enoxaparin Sodium 80 MG/0.8 ML SYRINGE SC SCH (09:50)
[2019-04-22] MEDS: Aspirin 81 mg Enteric Coated Tablet PO SCH (09:51)
[2019-04-22] MEDS: predniSONE 50 MG TAB PO SCH (09:51)
[2019-04-22] MEDS: Ezetimibe 10 MG TAB PO SCH (09:51)
[2019-04-22] MEDS: Doxycycline 100 MG CAP PO SCH (09:51)
[2019-04-22] MEDS: hydrALAZINE 25 MG TAB PO SCH (09:52)
[2019-04-22] MEDS: Clopidogrel Bisulfate 75 MG TAB PO SCH (09:52)
[2019-04-22 11:48] VITALS: BP 138/83; TEMP 97.8
== END 2019-04-22 12:00 | disposition home or self-care (01) | DRG 305 ==
LOC: ERS 08:11 → ERHOLD 11:06 → 2SE 16:01
PROVIDERS: ADMIT Internal Medicine Sleep Medicine; ATTEND Internal Medicine Sleep Medicine
DX: I16.0 Hypertensive urgency (principal); J44.1 Chronic obstructive pulmonary disease with (acute) exacerbation; I25.10 Atherosclerotic heart disease of native coronary artery without angina pectoris; E78.5 Hyperlipidemia, unspecified; I10 Essential (primary) hypertension; F17.210 Nicotine dependence, cigarettes, uncomplicated; M48.02 Spinal stenosis, cervical region; E78.00 Pure hypercholesterolemia, unspecified; Z88.8 Allergy status to other drugs, medicaments and biological substances; Z86.73 Personal history of transient ischemic attack (TIA), and cerebral infarction without residual deficits; Z79.899 Other long term (current) drug therapy
CPT/HCPCS: 36415; 70450; 71045; 72141; 78452; 80053; 81003; 82550; 82553; 83880; 84484; 85025; 85379; 93005; 93017; 94640; A9500; J1650; J2785; J7512

== ENCOUNTER 2019-06-26 16:47 | Observation (INO) | payer SELFPAY ==
[~2019-06-26 16:47] MED LIST: Iopamidol-370 76% 500 ML 1 ML ONE
[2019-06-26 17:25] LABS: #Basophils 0.1 thou/uL (0.0-0.2); #Eosinphils 0.1 thou/uL (0.0-0.7); #Lymphocytes 2.3 thou/uL (1.20-3.40); #Monocytes 0.8 thou/uL (0.11-0.59); #Neutrophils 3.9 thou/uL (1.40-6.50); %Basophils 1.3 % (0.0-1.0); %Eosinophils 1.8 % (0.0-10.0); %Lymphocytes 31.7 % (21.0-51.0); %Monocytes 11.4 % (0.0-10.0); %Neutrophils 53.8 % (42.0-75.0); Hemoglobin 17.3 g/dL (14.0-18.0); Mean Corpuscular HGB CONC 32.6 g/dL (32.0-36.0); Mean Corpuscular Hemoglobin 30.1 pg (27.0-31.0); Mean Corpuscular Volume 92.3 fL (78.0-98.0); Mean Platelet Volume 10.3 fL (7.4-10.4); Platelet Count 174 thou/uL (130-400); Red Blood Cell (RBC) Count 5.76 mill/uL (4.70-6.10); White Blood Cell (WBC) Count 7.3 thou/uL (4.8-10.8)
--- NOTE | 2019-06-26 17:32 | CT ---
CT HEAD WITHOUT IV CONTRAST COMPARISON: 04/20/2019 HISTORY: Bilateral leg tingling with onset of symptoms at 0200 hours. TECHNIQUE: Axial CT imaging at 5 mm intervals from vertex through skull base without contrast FINDINGS: There is decreased attenuation in the periventricular white matter which is nonspecific but likely re flective of chronic small vessel ischemic changes. Low-density foci are seen in each thalamus also present on prior exam and likely related to remote lacunar infarctions. Low-density foci are seen in the omkar bilaterally also present on prior exam and likely related to chronic small vessel ischemic changes. There is mild cerebral volume loss. The ventricular system is normal in size, shape, and position for the degree of sulcal atrophy. There is no evidence of an acute infarction, hemorrhage, mass effect, or midline shift. Minimal mucosal thickening is seen in the left sphenoid sinus with mucosal thickening seen in ethmoid air cells bilaterally as well as in the region of each frontoethmoidal recess. Mastoid air cells are clear. Osseous structures appear intact. IMPRESSION: 1. No acute intracranial abnormality demonstrated. 2. Chronic small vessel ischemic changes and cerebral volume loss. 3. Remote lacunar infarctions in each thalamus.
[2019-06-26 17:51] LABS: ALT (SGPT) 70 U/L (8-55); AST (SGOT) 48 U/L (5-34); Albumin 4.8 g/dL (3.5-5.0); Alkaline Phosphatase 68 U/L (40-110); Anion Gap 16 mmol/L (10-20); BUN (Urea Nitrogen) 10 mg/dL (8.4-25.7); Bilirubin, Total 0.7 mg/dL (0.2-1.2); CK (CPK) 63 U/L (30-200); Calc. Creatinine Clearance 0 mL/min (70-130); Calcium 10.4 mg/dL (7.8-10.44); Carbon Dioxide 23 mmol/L (22-29); Chloride 103 mmol/L (98-107); Estimated GFR-MDRD Greater than 90; Globulin 4.6 g/dL (2.4-3.5); Glucose 82 mg/dL (70-105); Magnesium 2.1 mg/dL (1.6-2.6); Potassium 3.9 mmol/L (3.5-5.1); Protein, Total 9.4 g/dL (6.0-8.3); Sodium 138 mmol/L (136-145)
--- NOTE | 2019-06-26 17:51 | RAD ---
EXAM: CHEST ONE VIEW HISTORY: Bilateral leg tingling. COMPARISON: 04/20/2019 FINDINGS: The cardiac silhouette and pulmonary vasculature is within normal limits. The lungs are clear. The os seous structures are intact. Vascular calcifications are again seen in the thoracic aorta. Chest is stable compared to prior study. IMPRESSION: No acute cardiopulmonary process.
--- NOTE | 2019-06-26 17:54 | RAD ---
Exam: XR Hip Lt 2-3 View HISTORY: Bilateral leg tingling with onset of symptoms at 0200 hours. COMPARISON: None FINDINGS: Vascular calcifications are seen in the iliac and femoral arteries on the left. No acute fracture, dislocation, or other acute osseous abnormality is identified. IMPRESSION: No acute osseous abnormality is identified.
[2019-06-26 18:10] LABS: CKMB 1.3 ng/mL (0-6.6)
[2019-06-26 18:11] LABS: INR-International Normal Ratio 0.9; PTT 30.9 SEC (22.9-36.1); Prothrombin Time 12.2 SEC (12.0-14.7)
[2019-06-26] MEDS ORDERED: Aspirin Chewable 81 MG TAB ONE (20:04)
--- NOTE | 2019-06-26 22:05 | PDOC.HHP ---
Hospitalist HPI - History of Present Illness Palpitations; Dizziness History of Present Illness: 53 yo with CAD, CVA, HTN, DL presents to ER due to sudden onset of palpitations that he experienced at 2 AM on early hours when he woke up to go to the restroom. He also had dizziness and he fell on his left side without hitting his head or loss of consciousness. He reports he has carpal tunnel but is unable to afford surgery. He feels some increasing weakness in his left arm that started at the same time. No CP, SOB, cough, N/V/D/C. No fever, chills, burning or pain with urination. No headache or vision changes. No swelling in legs or rash or bruising. He ran out of 2 of his HTN meds on Sunday and has been unable to fill them. He states he couldn't afford them but was planning on getting them today. ED Course: Suspected of acute CVA. Head CT without abnormality. Being admitted. Has HTN uncontrolled. Hospitalist ROS - Review of Systems All other systems reviewed; all pertinent +/- noted in HPI/Subj Hospitalist History - Past Medical History Source: patient, old records Cardiac: reports: CAD, HTN, Hyperlipidemia Pulmonary: reports: COPD [employer]IN[employer]IC[employer]: reports: CVA, TIA - Past Surgical History Past Surgical History: reports: Other ([facility]) - Family History Family History: reports: cardiac disorder (father; brother), hypertension ( parents; brothers) - Social History Smoking Status: Current every day smoker Tobacco Type: cigarettes (1/2 PPD) Alcohol: reports: Occassional Drugs: reports: marijuana Living Situation: Alone Activity level: uses cane/walker - Exam General Appearance: NAD, awake alert Eye: PERRL, anicteric sclera ENT: normocephalic atraumatic, no oropharyngeal lesions, moist mucosa Neck: supple, symmetric, no JVD, no thyromegaly, no lymphadenopathy Heart: RRR, no murmur, no gallops, no rubs, normal peripheral pulses Respiratory: CTAB, no wheezes, no rales, no ronchi, normal chest expansion, no tachypnea Gastrointestinal: soft, non-tender, non-distended, normal bowel sounds, no palpable masses, no hepatomegaly, no splenomegaly Extremities: no cyanosis, no clubbing, no edema Skin: normal turgor, no lesions, no rashes Neurological: cranial nerve grossly intact, normal sensation to touch, no focal deficits Musculoskeletal: normal tone, no muscle wasting Musculoskeletal - other findings: Weakness bilateral upper extremities Psychiatric: normal affect, normal behavior, A&O x 3 Hospitalist Results - Labs Result Diagrams: 06/26/19 16:54 06/26/19 16:54 Lab results: WBC 7.3 thou/uL (4.8-10.8) 06/26/19 16:54 Hgb 17.3 g/dL (14.0-18.0) 06/26/19 16:54 Hct 53.1 % (42.0-52.0) H 06/26/19 16:54 MCV 92.3 fL (78.0-98.0) 06/26/19 16:54 Plt Count 174 thou/uL (130-400) 06/26/19 16:54 Neutrophils % 53.8 % (42.0-75.0) 06/26/19 16:54 Sodium 138 mmol/L (136-145) 06/26/19 16:54 Potassium 3.9 mmol/L (3.5-5.1) 06/26/19 16:54 Chloride 103 mmol/L (98-107) 06/26/19 16:54 Carbon Dioxide 23 mmol/L (22-29) 06/26/19 16:54 BUN 10 mg/dL (8.4-25.7) 06/26/19 16:54 Creatinine 0.82 mg/dL (0.7-1.3) 06/26/19 16:54 Glucose 82 mg/dL (70-105) 06/26/19 16:54 Calcium 10.4 mg/dL (7.8-10.44) 06/26/19 16:54 Total Bilirubin 0.7 mg/dL (0.2-1.2) 06/26/19 16:54 AST 48 U/L (5-34) H 06/26/19 16:54 ALT 70 U/L (8-55) H 06/26/19 16:54 Alkaline Phosphatase 68 U/L (40-110) 06/26/19 16:54 Creatine Kinase 63 U/L (30-200) 06/26/19 16:54 CK-MB (CK-2) 1.3 ng/mL (0-6.6) 06/26/19 16:54 Troponin I 0.034 ng/mL (< 0.028) H 06/26/19 16:54 Serum Total Protein 9.4 g/dL (6.0-8.3) H 06/26/19 16:54 Albumin 4.8 g/dL (3.5-5.0) 06/26/19 16:54 Additional comment: ECHO in 12/09 EF 60-65% LVDD - EKG Interpretation EKG: Personally reviewed - Sinus rhythm; Non-specific ST-T changes - Radiology Interpretation CT scan - head Status: image reviewed by me (No acute hemorrhage noted) Hospitalist H&P A/P - Problem (1) Hypertensive urgency Code(s): I16.0 - HYPERTENSIVE URGENCY Status: Acute Assessment and Plan: Place under observation to Stroke unit High risk due to need for control of BP Resume all home meds Monitor BP and adjust meds as needed Suspicion for TIA/CVA with his worsening weakness MRI brain Neurology consult CTA head & neck Will consider repeat ECHO based on MRI results High dose statin, DAPT PT/OT eval Urine drug screen (2) CAD (coronary artery disease) Code(s): I25.10 - ATHSCL HEART DISEASE OF [place] CORONARY ARTERY W/O ANG PCTRS Status: Chronic Qualifiers: Coronary Disease-Associated Artery/Lesion type: [place] artery [place] vs. transplanted heart: [place] heart Associated angina: without angina Qualified Code(s): I25.10 - Atherosclerotic heart disease of [place] coronary artery without angina pectoris Assessment and Plan: DAPT, Statin and BB therapy No anginal symptoms (3) COPD (chronic obstructive pulmonary disease) Status: Chronic Qualifiers: COPD type: unspecified COPD Qualified Code(s): J44.9 - Chronic obstructive pulmonary disease, unspecified Assessment and Plan: Not in exacerbation Nebs PRN (4) Hyperlipidemia Code(s): E78.5 - HYPERLIPIDEMIA, UNSPECIFIED Status: Chronic Qualifiers: Hyperlipidemia type: other hyperlipidemia Qualified Code(s): E78.49 - Other hyperlipidemia; E78.4 - Other hyperlipidemia Assessment and Plan: Statin therapy (5) Hypertension Code(s): I10 - ESSENTIAL (PRIMARY) HYPERTENSION Status: Chronic Qualifiers: Hypertension type: essential hypertension Qualified Code(s): I10 - Essential (primary) hypertension Assessment and Plan: As above, patient with HTN urgency now Mgmt. as mentioned above (6) Tobacco abuse Code(s): Z72.0 - TOBACCO USE Status: Chronic Assessment and Plan: Counselled about cessation. Patient states he is working on quitting. NRT PRN (7) H/O: CVA (cerebrovascular accident) Code(s): Z86.73 - PRSNL HX OF TIA (TIA), AND CEREB INFRC W/O RESID DEFICITS Status: Chronic (8) H/O carotid endarterectomy Code(s): Z98.890 - OTHER SPECIFIED POSTPROCEDURAL STATES Status: Chronic
[2019-06-26] MEDS ORDERED: Ondansetron PF 4 MG/2 ML Vial IVP PRN (22:24)
[2019-06-26] MEDS ORDERED: Senokot S 8.6-50 MG TAB PO PRN (22:24)
[2019-06-26] MEDS ORDERED: Acetaminophen 325 MG TAB PO PRN (22:24)
[2019-06-26] MEDS ORDERED: Nicotine 14 MG PATCH TD PRN (22:30)
[2019-06-26] MEDS ORDERED: hydrALAZINE 25 MG TAB PO SCH (22:45)
[2019-06-26] MEDS ORDERED: Lisinopril 10 MG TAB PO SCH (22:45)
[2019-06-26] MEDS ORDERED: NIFEdipine XL 30 MG TAB PO SCH (23:00)
[2019-06-26] MEDS ORDERED: Carvedilol 6.25 MG TAB PO SCH (23:00)
--- NOTE | 2019-06-27 00:01 | CT ---
CT HEAD WITHOUT IV CONTRAST CT ANGIOGRAM HEAD AND NECK WITH IV CONTRAST AND 3D RECONSTRUCTIONS: 06/26/19 HISTORY: TIA. Patient presents with numbness and tingling. COMPARISON: Noncontrast CT head on 06/26/19 at 1710 hours as well as CT angiogram head and neck on 01/15/16. NONCONTRAST CT HEAD: Again noted are chronic small vessel ischemic changes and cerebral volume loss. Low density areas a re again seen in each basal ganglia and thalami likely related to remote lacunar infarctions. Low den sity areas in the omkar and less well evaluated but also again seen and probably attributable to remot e lacunar infarctions/chronic small vessel ischemic changes. No acute cortical infarction or hemorrha ge is seen. Mild cerebral volume loss is present. Mild mucosa thickening is seen in ethmoidal air cells bilaterally and each maxillary antrum. No other interval change. CT ANGIOGRAM HEAD AND NECK: There is a normal arrangement of the great vessels at the aortic arch which are patent. Vascular calc ifications are seen in the aortic arch involving the great vessels. Portion of the innominate artery is obscured due to dense contrast in the IVC. The left subclavian artery and bilateral common carotid arteries are patent. Dense vascular calcifications are seen involving the left carotid artery bifurcation. Dense vascular calcifications in the proximal left internal carotid artery result in mild degree of narrowing proxi jennie, but the degree of narrowing appears less than 50%. There are postsurgical changes likely rela jeff to right carotid endarterectomy without significant narrowing involving the right internal caroti d artery. External carotid arteries appear patent bilaterally. There is suggestion of a filling defect within the right vertebral artery at the C4-5 level, but this is likely attributable to an eccentric atherosclerotic plaque resulting in severe narrowing of the r ight vertebral artery at this level. This is not appreciated on the prior exam. The right vertebral a rtery is otherwise patent. There is atherosclerotic irregularity and narrowing involving the proximal left vertebral artery. Artifact is seen through this region, but the degree of narrowing appears to be severe in severity. Left vertebral artery is otherwise patent. The basilar artery is patent. There is focal area of narrowing seen involving the distal left posteri or cerebral artery. Right posterior cerebral artery is patent. The bilateral middle cerebral and anterior cerebral arteries are patent. No intracranial aneurysm is seen within the limitations of the technique of this exam. The visualized lung apices are clear with minimal bullous emphysematous changes. IMPRESSION: 1. Suggested filling defect within the right vertebral artery at the C4-5 level which may actua lly represent an eccentric atherosclerotic plaque with severe luminal narrowing. Remainder of the rig ht vertebral artery appears patent. 2. Suboptimal evaluation of the proximal left vertebral artery, but there appears to be atherosc lerotic irregularity. 3. Focal narrowing involving the distal left posterior cerebral artery. 4. Bilateral middle cerebral and anterior cerebral arteries are patent. 5. Chronic small vessel ischemic changes and cerebral volume loss with remote lacunar infarction s in each thalamus and basal ganglia. 6. Postoperative changes related to right carotid endarterectomy with mild (less than 50%) steno sis involving the proximal left internal carotid artery. POS: LIA
[2019-06-27 00:43] LABS: Troponin I 0.033 ng/mL (< 0.028)
[2019-06-27 00:55] VITALS: BMI 27.3
[2019-06-27 04:15] LABS: Amphetamine Not Detected (NotDetected); Barbiturates Screen Not Detected (NotDetected); Benzodiazepine Screen Not Detected (NotDetected); Cocaine Metabolite Screen Not Detected (NotDetected); Medtox Control Line Valid? VALID (VALID); Medtox Reader # READER 1; Methadone Not Detected (NotDetected); Methamphetamine Not Detected (NotDetected); Opiate Screen Not Detected (NotDetected); Oxycodone Screen Not Detected (NotDetected); Phencyclidine (PCP) Not Detected (NotDetected); THC/Cannabinoid Screen Detected (NotDetected); Tricyclic Screen Not Detected (NotDetected)
[2019-06-27 04:58] LABS: #Eosinphils 0.2 thou/uL (0.0-0.7); #Lymphocytes 1.8 thou/uL (1.20-3.40); #Monocytes 0.8 thou/uL (0.11-0.59); #Neutrophils 3.1 thou/uL (1.40-6.50); %Basophils 0.8 % (0.0-1.0); %Eosinophils 3.3 % (0.0-10.0); %Lymphocytes 30.1 % (21.0-51.0); %Monocytes 13.5 % (0.0-10.0); %Neutrophils 52.3 % (42.0-75.0); Hemoglobin 16.1 g/dL (14.0-18.0); Mean Corpuscular HGB CONC 32.8 g/dL (32.0-36.0); Mean Corpuscular Hemoglobin 30.5 pg (27.0-31.0); Mean Corpuscular Volume 92.9 fL (78.0-98.0); Platelet Count 170 thou/uL (130-400); RBC Distribution Width 12.1 % (11.5-14.5)
[2019-06-27 05:10] LABS: ALT (SGPT) 57 U/L (8-55); AST (SGOT) 38 U/L (5-34); Albumin 3.9 g/dL (3.5-5.0); Alkaline Phosphatase 58 U/L (40-110); Anion Gap 11 mmol/L (10-20); BUN (Urea Nitrogen) 11 mg/dL (8.4-25.7); Bilirubin, Total 0.6 mg/dL (0.2-1.2); Calc. Creatinine Clearance 129 mL/min (70-130); Calcium 9.6 mg/dL (7.8-10.44); Carbon Dioxide 21 mmol/L (22-29); Cardiac Risk 3.1 (Less than 4.5); Chloride 108 mmol/L (98-107); Cholesterol 138 mg/dl (< 200 Desired); Estimated GFR-MDRD Greater than 90; Glucose 103 mg/dL (70-105); HDL Cholesterol 44 mg/dL (>60 Neg Risk); LDL Cholesterol, Calculated 81 mg/dL; Protein, Total 7.9 g/dL (6.0-8.3); Sodium 136 mmol/L (136-145); Triglycerides 65 mg/dL (Less than 150)
[2019-06-27 05:13] LABS: Troponin I 0.031 ng/mL (< 0.028)
--- NOTE | 2019-06-27 08:18 | MRI ---
MRI BRAIN WITHOUT CONTRAST: HISTORY: Bilateral leg tingling. Slurred speech COMPARISON: 11/30/2018 CORRELATION: CT scan from 06/26/2019. FINDINGS: No restricted diffusion is seen. There are multiple foci of T2 prolongation in the periventricular wh ite matter, consistent with chronic small vessel ischemic disease. The ventricular size is appropriate and the basilar cisterns are patent. Hemosiderin deposition in the periventricular white matter and left cerebellar hemisphere is stable. No evidence of acute infarct, hemorrhage, midline shift or abnormal extra-axial fluid collections is seen. There is mucosal disease in the paranasal sinuses. IMPRESSION: No evidence of acute intracranial process.
[2019-06-27] MEDS ORDERED: Aspirin 81 mg Enteric Coated Tablet PO SCH (09:00)
[2019-06-27] MEDS ORDERED: Heparin 5,000 UNITS/ML VIAL SC SCH ×2 (09:00)
[2019-06-27] MEDS ORDERED: Clopidogrel Bisulfate 75 MG TAB PO SCH (09:00)
[2019-06-27] MEDS: hydrALAZINE 25 MG TAB PO SCH ×2 (09:44→15:57)
[2019-06-27] MEDS: Carvedilol 6.25 MG TAB PO SCH ×2 (09:44→15:58)
--- NOTE | 2019-06-27 14:42 | CON ---
DATE OF CONSULTATION: 06/27/2019 CONSULTING PHYSICIAN: Hospitalist Service. IMPRESSION: Nonspecific dizziness and bilateral hip pain, which has resolved. There is no evidence of an ischemic event on MRI. PLAN: Continue his current treatment with aspirin, Plavix, and a statin. HISTORY OF PRESENT ILLNESS: Mr. Burrows is a 53-year-old man with a past history of coronary artery disease, tobacco use, minor stroke, and carpal tunnel syndrome. He came into the hospital yesterday with complaints of bilateral hip pain and a feeling of dizziness. There was no associated slurred speech or lateralized weakness or numbness. His hip pain is resolved. He still complains of a bit of dizziness. His blood pressure is 140/80. He has no other complaints at this point. He has had prior cardiovascular workup the end of last year. His carotid ultrasound was clear. His echocardiogram showed a normal ejection fraction of 60% to 65%. He was having some ongoing hypertension. Dr. Recio added some medication to address this. It was recommended he quit smoking. On this occasion, he had a CT angiogram done, which showed some vertebral artery narrowing. There was no anterior circulation stenosis of significance greater than 50%. PAST HISTORY: As listed above. ALLERGIES: AMLODIPINE, LISINOPRIL. SOCIAL HISTORY: Positive for tobacco. FAMILY HISTORY: Noncontributory. REVIEW OF SYSTEMS: Ten-system review of systems is otherwise negative. PHYSICAL EXAMINATION: VITAL SIGNS: Blood pressure 137/89, pulse 61, respirations 20, and temperature 97.8. HEENT: Pupils are equal and reactive. Conjunctivae are clear. Oropharynx clear. Cranium, normocephalic and atraumatic. NECK: Supple. EXTREMITIES: No cyanosis or edema. NEUROLOGIC: He is alert and appropriate. His speech is fluent and clear. There is no facial asymmetry. He had no fix or drift. Sensation was intact. No tremor. Dysmetria is present. He can stand and walk independently. SUMMARY: This is a middle-aged man with some odd complaints of bilateral hip pain and vague dizziness. The most notable finding is some vertebral artery stenosis. We continue full antiplatelet therapy and statin to try to prevent this from worsening. He otherwise has not developed any new ischemic event and therefore could be discharged at your discretion. Job ID: [id number]
[2019-06-27 15:51] VITALS: BP 144/96; TEMP 98.1
--- NOTE | 2019-06-27 20:44 | DIS ---
DATE OF ADMISSION: 06/26/2019 DATE OF DISCHARGE: 06/27/2019 DISCHARGE DISPOSITION: Home. FOLLOWUP: 1. Follow up with primary care physician, Tessie Hammonds in 1 week. 2. Follow up with Neurology, Dr. Gustafson in 2 to 3 weeks. ALLERGIES: THE PATIENT IS ALLERGIC TO AMLODIPINE AND LISINOPRIL. THE PATIENT WAS SEEN AND EXAMINED ON THE DAY OF DISCHARGE. DENIES ANY NEW COMPLAINTS. NO CHEST PAIN, SHORTNESS OF BREATH, PALPITATIONS, OR FOCAL DEFICIT REPORTED. BRIEF HOSPITAL COURSE: The patient is a 53-year-old male with hypertension, coronary artery disease, and CVA in the past, presented to the hospital with dizziness without any loss of consciousness. Please refer to the history and physical for further details. The patient was admitted to the hospital with a diagnosis of hypertensive urgency with suspected CVA. He underwent stroke workup that was negative. He was evaluated by Neurology, Dr. Gustasfon, who recommended to continue aspirin and Plavix along with statins. Tobacco cessation was extensively emphasized. He has been cleared by Neurology for discharge. DIAGNOSTIC TESTS: 1. CT scan of the brain was negative for acute findings. 2. MRI of the brain was negative for acute CVA. 3. CTA of the head and neck showed filling defect in the right vertebral artery at C4-5 level. There was also focal narrowing involving the distal left posterior cerebral artery. FINAL DIAGNOSES: 1. Nonspecific dizziness of unclear etiology. Cerebrovascular accident ruled out. 2. Hypertensive urgency. 3. Coronary artery disease. 4. Chronic obstructive pulmonary disease. 5. Hypertension. 6. Hyperlipidemia. 7. Tobacco dependence. 8. History of cerebrovascular accident. 9. History of right carotid endarterectomy. 10. Cannabis abuse. 11. The patient understands the above plan of care. Job ID: [id number]
[2019-06-27] MEDS ORDERED: NIFEdipine XL 30 MG TAB PO SCH (21:00)
[2019-06-27] MEDS ORDERED: Lisinopril 10 MG TAB PO SCH (21:00)
[2019-06-27] MEDS ORDERED: Atorvastatin Calcium 40 MG TAB PO SCH (21:00)
== END 2019-06-27 17:09 | disposition home or self-care (01) ==
LOC: ERS 16:47 → 2SE 22:10
PROVIDERS: ADMIT Internal Medicine Sleep Medicine; ATTEND Internal Medicine
DX: I16.0 Hypertensive urgency (principal); R42 Dizziness and giddiness; I25.10 Atherosclerotic heart disease of native coronary artery without angina pectoris; J44.9 Chronic obstructive pulmonary disease, unspecified; I10 Essential (primary) hypertension; E78.5 Hyperlipidemia, unspecified; F12.10 Cannabis abuse, uncomplicated; F17.210 Nicotine dependence, cigarettes, uncomplicated; Z79.899 Other long term (current) drug therapy; Z86.73 Personal history of transient ischemic attack (TIA), and cerebral infarction without residual deficits; Z88.8 Allergy status to other drugs, medicaments and biological substances
CPT/HCPCS: 36415; 36416; 70450; 70496; 70498; 70551; 71045; 80053; 80061; 80306; 82550; 82553; 83735; 84484; 85025; 85610; 85730; 93005; 93010; G0378; Q9967

== ENCOUNTER 2019-10-13 17:06 | Inpatient (IN) | payer OTHER, SELFPAY ==
[2019-10-13 18:04] LABS: #Basophils 0.1 thou/uL (0.0-0.2); #Eosinphils 0.2 thou/uL (0.0-0.7); #Lymphocytes 2.3 thou/uL (1.20-3.40); #Monocytes 0.7 thou/uL (0.11-0.59); #Neutrophils 3.1 thou/uL (1.40-6.50); %Basophils 1.3 % (0.0-1.0); %Eosinophils 3.4 % (0.0-10.0); %Lymphocytes 36.1 % (21.0-51.0); %Monocytes 10.6 % (0.0-10.0); %Neutrophils 48.5 % (42.0-75.0); Hemoglobin 15.6 g/dL (14.0-18.0); Mean Corpuscular HGB CONC 32.8 g/dL (32.0-36.0); Mean Corpuscular Hemoglobin 30.3 pg (27.0-31.0); Mean Corpuscular Volume 92.4 fL (78.0-98.0); Mean Platelet Volume 9.1 fL (7.4-10.4); Platelet Count 188 thou/uL (130-400); RBC Distribution Width 11.9 % (11.5-14.5); Red Blood Cell (RBC) Count 5.15 mill/uL (4.70-6.10); White Blood Cell (WBC) Count 6.4 thou/uL (4.8-10.8)
[2019-10-13 18:23] LABS: ALT (SGPT) 164 U/L (8-55); AST (SGOT) 104 U/L (5-34); Alkaline Phosphatase 68 U/L (40-110); Anion Gap 11 mmol/L (10-20); BUN (Urea Nitrogen) 8 mg/dL (8.4-25.7); Bilirubin, Total 0.8 mg/dL (0.2-1.2); Calc. Creatinine Clearance 0 mL/min (70-130); Calcium 9.1 mg/dL (7.8-10.44); Carbon Dioxide 22 mmol/L (22-29); Chloride 105 mmol/L (98-107); Estimated GFR-MDRD Greater than 90; Globulin 4.1 g/dL (2.4-3.5); Glucose 90 mg/dL (70-105); Potassium 3.8 mmol/L (3.5-5.1); Protein, Total 8.1 g/dL (6.0-8.3); Sodium 134 mmol/L (136-145)
--- NOTE | 2019-10-13 18:27 | RAD ---
PORTABLE CHEST: History: Slurred speech, numbness, tingling. Ataxic gait. Comparison: 06-26-2019 FINDINGS: Heart size is within normal limits. There are atherosclerotic changes of the aorta. The lungs are jb ar of any infiltrates. There are no signs of failure. IMPRESSION: No active intrathoracic disease. POS: [facility]
--- NOTE | 2019-10-13 20:08 | CT ---
CT BRAIN WITHOUT CONTRAST: History: 53-year-old male with numbness and tingling. Slurred speech. No facial droop. Comparison: 06-26-2019 FINDINGS: Changes of chronic small vessel ischemic disease and old lacunar infarctions in the thalami are again seen. The ventricular size is appropriate and stable and the basilar cisterns are patent. No evidence of acute infarct, hemorrhage, midline shift or abnormal extraaxial fluid collections are seen. The bony calvarium is intact. There is mucosal disease in the paranasal sinuses. The mastoid ai r cells are well aerated and clear. IMPRESSION: No CT evidence of acute intracranial process. POS: MZA
[2019-10-13] MEDS ORDERED: Aspirin 325 MG TAB ONE (20:53)
[2019-10-13 23:02] VITALS: BMI 27.8
[2019-10-13] MEDS ORDERED: cloNIDine 0.1 MG TAB PO PRN (23:17)
[2019-10-14 00:06] LABS: Bacteria/HPF None Seen HPF (None Seen); Bilirubin Negative (Negative); Blood, Urine Negative (Negative); Clarity Clear (Clear); Glucose, Urine (Dipstick) Normal (Negative); Leukocyte Negative Leu/uL (Negative); Nitrite Negative (Negative); Protein, Urine (Dipstick) Negative (Neg-Trace); RBC/HPF 0-3 HPF (0-3); Squamous Epithelial None Seen HPF (0-3); Urobilinogen Normal mg/dL (Less than 2); WBC/HPF 0-3 HPF (0-3)
[2019-10-14 00:08] LABS: Urine Culture Reflex No No
[2019-10-14 00:27] LABS: Amphetamine Not Detected (NotDetected); Barbiturates Screen Not Detected (NotDetected); Benzodiazepine Screen Not Detected (NotDetected); Cocaine Metabolite Screen Not Detected (NotDetected); Medtox Control Line Valid? VALID (VALID); Medtox Reader # READER 4; Methadone Not Detected (NotDetected); Methamphetamine Not Detected (NotDetected); Opiate Screen Not Detected (NotDetected); Oxycodone Screen Not Detected (NotDetected); Phencyclidine (PCP) Not Detected (NotDetected); THC/Cannabinoid Screen Detected (NotDetected); Tricyclic Screen Not Detected (NotDetected)
--- NOTE | 2019-10-14 00:57 | HP ---
PRIMARY CARE PHYSICIAN: MARY Stock CHIEF COMPLAINT: "I was having slurred speech." HISTORY OF PRESENT ILLNESS: The patient is a pleasant 53-year-old male with past medical history significant for CVA in 2018, hypertension and hyperlipidemia, who presented to the ER today after he was talking to Ms. MARY Stock on the phone and she noticed that his speech was more slurred than usual. He states that he did not notice until it was pointed out to him, but he does feel that it is more pronounced than his baseline. From his previous stroke he admits to intermittent slurred speech, more pronounced when tired, and left side weakness deficit. He denies any alcohol use today or drug use and states that he is taking his medications as prescribed. In the ER today, he completed a chest x-ray, brain CT, and lab work. He was also administered aspirin 325 mg. PAST MEDICAL HISTORY: Hypertension, CVA in 2018 with left-sided residual deficits, and hyperlipidemia. PAST SURGICAL HISTORY: Appendectomy and hernia repair. ALLERGIES: NO KNOWN DRUG ALLERGIES. MEDICATIONS: 1. Plavix 75 mg p.o. daily. 2. Carvedilol 6.25 p.o. b.i.d. 3. Clonidine 0.1 mg p.o. b.i.d. as needed for systolic blood pressure of 180. 4. Atorvastatin 20 mg p.o. at bedtime. 5. Aspirin 81 mg p.o. daily. 6. Hydralazine 75 mg p.o. t.i.d. SOCIAL HISTORY: Patient lives at home with his mother. He is currently working on his disability status and does not work. He smokes half pack of cigarettes per day. States he drinks approximately a 12-pack per week, some days will drink 4 to 5 beers and other days will drink none. The patient states he uses marijuana regularly, although it has been 4 to 5 days since his last usage. He denies any other illicit drugs. FAMILY HISTORY: Mom is positive for atrial fibrillation. REVIEW OF SYSTEMS: All other review of systems negative unless noted in the HPI. PHYSICAL EXAMINATION: VITAL SIGNS: Blood pressure 170/104, temp 98.1 Fahrenheit, pulse 61, respiratory rate 16, O2 saturation 95% on room air. GENERAL: Patient presents in no acute distress. Very talkative and friendly. HEENT: Head is atraumatic, normocephalic. Eyes, PERRLA. Extraocular muscles intact. NECK: Trachea midline. No lymphadenopathy. RESPIRATORY: Normal chest rise. Bilateral wheezes. No rales. CARDIOVASCULAR: Regular rate and rhythm. Bradycardic. No murmurs. No gallops. No rubs. ABDOMEN: Bowel sounds normal. No distention or guarding. EXTREMITIES: Peripheral pulses are intact. NEUROLOGIC: Cranial nerves 2-12 intact. Slightly slurred speech at this time. Strength 5/5 in upper and lower extremities. Cerebellar intact. Alert and oriented to person and place, did not know today's date. PSYCHIATRIC: Normal affect. Normal behavior. LABORATORY DATA: WBC is 6.4, hemoglobin 15.6, hematocrit 47.6. Sodium 134, potassium 3.8, chloride 105, BUN 8, creatinine 0.72, GFR greater than 90, glucose 90, calcium 9.1, AST 104, ALT 132. Troponin negative. Toxicology, negative for alcohol. Chest x-ray, no acute intrathoracic disease. Brain CT, no CT evidence of acute intracranial process. IMPRESSION AND PLAN: 1. Transient ischemic attack versus CVA. Patient's slurred speech is almost resolved. He states that he does get increased slurred speech when he is tired though and we will continue to monitor the patient overnight on telemetry on the neuro unit and have Neurology see him in the morning. Will also order an MRI for the morning due to his symptoms not completely resolving at this time. His aspirin has been increased to 325 mg along with the Plavix he is on and increased his atorvastatin to 40 mg from the 20 he was taking at home. A drug screen will be completed along with urinalysis to rule out any other underlying infectious processes or altering substances. 2. Hypertension. Blood pressure slightly elevated at this time. We will allow for permissive hypertension currently, but we will start the patient on his home medications and continue to monitor overnight. 3. Hyperlipidemia. Fasting lipid panel is ordered for the morning. Increased Lipitor to 40 mg. 4. GI and DVT prophylaxis in place. The patient wishes to be DNAR. Job ID: [id number] MTDD
[2019-10-14 04:40] LABS: #Basophils 0.1 thou/uL (0.0-0.2); #Eosinphils 0.2 thou/uL (0.0-0.7); #Lymphocytes 1.8 thou/uL (1.20-3.40); #Monocytes 0.8 thou/uL (0.11-0.59); %Basophils 1.3 % (0.0-1.0); %Eosinophils 4.1 % (0.0-10.0); %Lymphocytes 30.2 % (21.0-51.0); %Monocytes 13.7 % (0.0-10.0); %Neutrophils 50.7 % (42.0-75.0); Hemoglobin 15.8 g/dL (14.0-18.0); Mean Corpuscular HGB CONC 32.4 g/dL (32.0-36.0); Mean Corpuscular Hemoglobin 30.3 pg (27.0-31.0); Mean Corpuscular Volume 93.5 fL (78.0-98.0); Mean Platelet Volume 9.2 fL (7.4-10.4); Platelet Count 177 thou/uL (130-400); RBC Distribution Width 11.9 % (11.5-14.5); Red Blood Cell (RBC) Count 5.22 mill/uL (4.70-6.10); White Blood Cell (WBC) Count 5.9 thou/uL (4.8-10.8)
[2019-10-14 05:27] LABS: Anion Gap 9 mmol/L (10-20); BUN (Urea Nitrogen) 11 mg/dL (8.4-25.7); Calc. Creatinine Clearance 131 mL/min (70-130); Calcium 9.2 mg/dL (7.8-10.44); Carbon Dioxide 26 mmol/L (22-29); Cardiac Risk 3.5 (Less than 4.5); Chloride 105 mmol/L (98-107); Cholesterol 120 mg/dl (< 200 Desired); Estimated GFR-MDRD Greater than 90; Glucose 112 mg/dL (70-105); HDL Cholesterol 34 mg/dL (>60 Neg Risk); LDL Cholesterol, Calculated 69 mg/dL; Potassium 3.5 mmol/L (3.5-5.1); Sodium 136 mmol/L (136-145); Triglycerides 84 mg/dL (Less than 150)
--- NOTE | 2019-10-14 08:02 | RAD ---
CHEST 1 VIEW: INDICATION: History of TIA. COMPARISON: Prior exam dated 10/13/2019. IMPRESSION: No acute cardiopulmonary abnormality. The examination has not appreciably changed from the compariso n study. POS: BH
[2019-10-14] MEDS: Aspirin 325 mg Enteric Coated Tablet PO SCH (08:49)
[2019-10-14] MEDS: Enoxaparin Sodium 40 MG/0.4 ML SYRINGE SC SCH (08:49)
[2019-10-14] MEDS: Carvedilol 6.25 MG TAB PO SCH ×2 (08:51→20:31)
[2019-10-14] MEDS: hydrALAZINE 25 MG TAB PO SCH ×3 (08:52→20:31)
[2019-10-14] MEDS: Clopidogrel Bisulfate 75 MG TAB PO SCH (08:52)
--- NOTE | 2019-10-14 08:53 | MRI ---
MRI OF BRAIN WITHOUT CONTRAST: INDICATION: Slurred speech. Numbness and tingling. COMPARISON: Comparison is made to the CT of 10/13/2019. Comparison is made to the MRI of brain dated 06/27/2019. FINDINGS: There is a single focus of restricted diffusion involving the left frontal lobe cortex and subcortica l region in the region of the precentral gyrus. The small focus of restricted diffusion measures floyd roximately 1.0 cm and is consistent with an acute infarct in the left middle cerebral artery distribu tion. There are severe chronic ischemic white matter changes which have been described previously and appea r stable. The intracranial internal carotid arteries, proximal cerebral arteries including both M1 segments funmi w flow voids. The basilar artery and proximal posterior cerebral arteries show flow voids. There are ischemic brainstem changes which appear stable. IMPRESSION: 1. Small focal acute infarct left frontal lobe in the region of the precentral gyrus in the left mid dle cerebral artery distribution. 2. Severe chronic ischemic white matter changes are again noted. POS: [facility]OR
--- NOTE | 2019-10-14 12:16 | CON ---
NEUROLOGY CONSULTATION DATE OF CONSULTATION: 10/14/2019 REASON FOR CONSULTATION: Slurred speech. HISTORY OF PRESENT ILLNESS: Mr. Burrows is a 53-year-old male with medical history significant for CVA in 2018, hyperlipidemia, and hypertension, came to the emergency room because of slurred speech. 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 She asked him to come to the emergency room for further evaluation. The patient does have left-sided weakness, but he denies any worsening at this time, but speech is worse than usual. The patient denies any nausea, vomiting, headache, chest pain, abdominal pain, loss of vision, or loss of consciousness associated with the episode. REVIEW OF SYSTEMS: All 14 systems were reviewed and were negative except the pertinent positives and negatives mentioned in the HPI. In the emergency room, he was given aspirin. PAST MEDICAL HISTORY: 1. Hypertension. 2. Cerebrovascular accident with residual left-sided deficits in 2018. 3. Hyperlipidemia. PAST SURGICAL HISTORY: 1. Appendectomy. 2. Hernia repair. ALLERGIES: Amlodipine, lisinopril MEDICATIONS: 1. Plavix 75 mg daily. 2. Carvedilol 6.25 mg twice daily. 3. Clonidine 0.1 mg for blood pressure. 4. Atorvastatin 20 mg daily. 5. Aspirin 81 mg daily. 6. Hydralazine 75 mg t.i.d. SOCIAL HISTORY: The patient lives at home. He lives with his mother and is currently on disability. He drinks 6 packs per week and uses marijuana and denies any other illegal drug use. FAMILY HISTORY: Mother has history of atrial fibrillation. PHYSICAL EXAMINATION: VITAL SIGNS: Blood pressure was 160/90, pulse 80, respiratory rate 18. CVS: Regular rate and rhythm. CHEST: Clear. ABDOMEN: Soft. NECK: No carotid bruit. NEUROLOGICAL: Mental status; the patient is alert and oriented to person, place , and time. Speech is slurred. Fund of knowledge is appropriate. Recent and remote memory intact. Cranial nerves 2 through 12 intact except dysarthria. Motor; muscle tone and bulk are normal. Strength is 5/5 in the right upper and lower extremity, 4/5 in the left upper and lower extremity. Cerebellar, slow on the left secondary to weakness. Sensory intact. Gait deferred due to the patient's safety reason. Reflexes symmetric bilaterally. DATA REVIEWED: I reviewed the labs, which are essentially unremarkable. I reviewed the head CT, which did not reveal any acute intracranial process. ASSESSMENT AND PLAN: Mr. Burrows is admitted for worsening slurred speech and left upper and lower extremity weakness. MRI of the brain reviewed, which was consistent with acute stroke in the left frontal lobe. Neuro checks every 4 hours. Increase aspirin to 325 mg daily from 81 mg daily and continue Plavix at the current dose . Increase atorvastatin to 40 mg for secondary stroke prevention. Permissive control of blood pressure at this time. Strict control of blood glucose. Carotid Dopplers to rule out significant stenosis. 2D echo to rule out cardioembolic source. DVT prophylaxis. PT/OT/Speech. Telemetry. Continue home medications. Continue medical management per primary team. We will continue to follow. Thank you for the consult. Job ID: [id number] MTDD
--- NOTE | 2019-10-14 14:55 | ULT ---
BILATERAL CAROTID DUPLEX ULTRASOUND: HISTORY: Stroke. TECHNIQUE: Grayscale, color-flow and spectral Doppler ultrasound imaging of the extracranial carotid artery syst ems and vertebral arteries was performed bilaterally. FINDINGS: Scattered atherosclerotic disease involving both carotid arteries. The peak systolic velocity in the right ICA measures 79.8 cm/s. The peak systolic velocity in the ri ght CCA measures 68.7 cm/s. The peak systolic velocity in the left ICA measures 56.5 cm/s. The peak systolic velocity in the l eft CCA measures 60 6. cm/s. The right IC/CC ration is1.2. The left IC/CC ratio is 0.9. Vertebral flow: antegrade, bilaterally. . IMPRESSION: No hemodynamically significant stenosis in either cervical carotid artery.
--- NOTE | 2019-10-14 20:44 | PDOC.HOSPP ---
- Subjective Encounter Date: 10/14/19 Encounter Time: 11:30 Subjective: pt up in bed no complains - Objective Vital Signs & Weight: Vital Signs (12 hours) Temp Pulse Pulse Pulse Resp BP BP 10/14/19 20:21 97.6 F 58 L 18 10/14/19 15:00 98.3 F 60 18 10/14/19 14:50 66 155/98 H 10/14/19 11:00 97.5 F L 74 18 10/14/19 09:35 60 65 171/96 H 10/14/19 09:08 51 L 56 L 138/99 H 10/14/19 08:52 57 L 140/93 H BP BP BP Pulse Ox 10/14/19 20:21 174/94 H 96 10/14/19 15:00 161/90 H 95 10/14/19 14:50 10/14/19 11:00 164/96 H 96 10/14/19 09:35 187/100 H 10/14/19 09:08 166/95 H 10/14/19 08:52 Weight Weight 189 lb I&O: 10/13/19 10/14/19 10/15/19 06:59 06:59 06:59 Intake Total 120 560 Output Total 300 200 Balance -180 360 Result Diagrams: 10/14/19 04:21 10/14/19 04:21 Hospitalist ROS - Review of Systems Respiratory: denies: cough, dry, shortness of breath, hemoptysis, SOB with excertion, pleuritic pain, sputum, wheezing, other Cardiovascular: denies: chest pain, palpitations, orthopnea, paroxysmal noc. dyspnea, edema, light headedness, other Gastrointestinal: denies: nausea, vomiting, abdominal pain, diarrhea, constipation, melena, hematochezia, other - Medication Medications: Active Medications Generic Name Dose Route Start Last Admin Trade Name Freq PRN Reason Stop Dose Admin Aspirin 325 mg 10/14/19 09:00 10/14/19 08:49 Ecotrin PO 325 mg DAILY [facility] Administration Carvedilol 6.25 mg 10/14/19 09:00 10/14/19 08:51 Coreg PO Not Given BID [facility] Clopidogrel Bisulfate 75 mg 10/14/19 09:00 10/14/19 08:52 Plavix PO 75 mg DAILY [facility] Administration Enoxaparin Sodium 40 mg 10/14/19 09:00 10/14/19 08:49 Lovenox SC 40 mg 0900 [facility] Administration Hydralazine HCl 75 mg 10/14/19 09:00 10/14/19 14:50 Apresoline PO 75 mg TID [facility] Administration Pantoprazole Sodium 40 mg 10/14/19 09:00 10/14/19 08:52 Protonix PO 40 mg DAILY [facility] Administration Sodium Chloride 10 ml 10/13/19 22:49 10/14/19 08:52 Flush - Normal Saline IVF 10 ml PRN PRN Administration Saline Flush - Exam Neck: negative: supple, symmetric, no JVD, no thyromegaly, no lymphadenopathy, no carotid bruit, JVD Heart: negative: RRR, no murmur, no gallops, no rubs, normal peripheral pulses, irregular, diminshed peripheral pulses, murmur present, II/IV, III/IV Respiratory: negative: CTAB, no wheezes, no rales, no ronchi, normal chest expansion, no tachypnea, normal percussion, rales, rhonchi, tachypneic, wheezes Gastrointestinal: negative: soft, non-tender, non-distended, normal bowel sounds , no palpable masses, no hepatomegaly, no splenomegaly, no bruit, no guarding, no rigidity, tender to palpation, distended, diminished bowl sounds, voluntary guarding Neurological - other findings: finger to nose off on left side Hosp A/P (1) Stroke Code(s): I63.9 - CEREBRAL INFARCTION, UNSPECIFIED Status: Acute (2) Chronic hepatitis C Code(s): B18.2 - CHRONIC VIRAL HEPATITIS C Status: Chronic (3) Hyperlipidemia Code(s): E78.5 - HYPERLIPIDEMIA, UNSPECIFIED Status: Chronic Qualifiers: (4) Hypertension Code(s): I10 - ESSENTIAL (PRIMARY) HYPERTENSION Status: Chronic Qualifiers: (5) Tobacco abuse Code(s): Z72.0 - TOBACCO USE Status: Chronic - Plan will continue asa/plavix. pt has already been on both. he has had cta in 07/10 which indicated vertebral stenosis. pt advised not to smoke. echo pending. ekg nsr.
[2019-10-14] MEDS ORDERED: Atorvastatin Calcium 40 MG TAB PO SCH (21:00)
[2019-10-15] MEDS ORDERED: Acetaminophen 325 MG TAB PO PRN (04:34)
[2019-10-15] MEDS: Carvedilol 6.25 MG TAB PO SCH (08:17)
[2019-10-15] MEDS: hydrALAZINE 25 MG TAB PO SCH ×2 (08:17→14:21)
[2019-10-15] MEDS: Clopidogrel Bisulfate 75 MG TAB PO SCH (08:17)
[2019-10-15] MEDS: Aspirin 325 mg Enteric Coated Tablet PO SCH (08:17)
[2019-10-15] MEDS: Enoxaparin Sodium 40 MG/0.4 ML SYRINGE SC SCH (08:18)
--- NOTE | 2019-10-15 11:39 | PDOC.HOSPP ---
- Subjective Encounter Date: 10/15/19 Subjective: NEUROLOGY PROGRESS NOTE Patient alert, awake and following commands. Speech continues to be slurred and no worsening of baseline residual deficits. - Objective Vital Signs & Weight: Vital Signs (12 hours) Temp Pulse Resp BP BP BP Pulse Ox 10/15/19 08:17 60 177/90 H 10/15/19 07:51 98 F 60 16 177/90 H 97 10/15/19 04:33 98.3 F 60 18 150/95 H 95 10/14/19 23:57 98.2 F 65 18 140/77 95 Weight Weight 189 lb I&O: 10/14/19 10/15/19 10/16/19 06:59 06:59 06:59 Intake Total 120 560 Output Total 300 200 Balance -180 360 Result Diagrams: 10/14/19 04:21 10/14/19 04:21 Radiology Reviewed by me: Yes EKG Reviewed by me: Yes Hospitalist ROS - Review of Systems Constitutional: denies: fever, chills, sweats, weakness, malaise, other Eyes: denies: pain, vision change, conjunctivae inflammation, eyelid inflammation, redness, other ENT: denies: ear pain, ear discharge, nose pain, nose discharge, nose congestion , mouth pain, mouth swelling, throat pain, throat swelling, other Respiratory: denies: cough, dry, shortness of breath, hemoptysis, SOB with excertion, pleuritic pain, sputum, wheezing, other Cardiovascular: denies: chest pain, palpitations, orthopnea, paroxysmal noc. dyspnea, edema, light headedness, other Gastrointestinal: denies: nausea, vomiting, abdominal pain, diarrhea, constipation, melena, hematochezia, other Genitourinary: denies: dysuria, frequency, incontinence, hematuria, retention, other Musculoskeletal: denies: neck pain, shoulder pain, arm pain, back pain, hand pain, leg pain, foot pain, other Skin: denies: rash, lesions, maureen, bruising, other Neurological: reports: weakness, change in speech. denies: numbness, incoordination, confusion, seizures, other - Medication Medications: Active Medications Generic Name Dose Route Start Last Admin Trade Name Freq PRN Reason Stop Dose Admin Acetaminophen 650 mg 10/15/19 04:34 10/15/19 04:38 Tylenol PO 650 mg Q6H PRN Administration Pain Aspirin 325 mg 10/14/19 09:00 10/15/19 08:17 Ecotrin PO 325 mg DAILY [facility] Administration Atorvastatin Calcium 40 mg 10/14/19 21:00 10/14/19 20:31 Lipitor PO 40 mg HS [facility] Administration Carvedilol 6.25 mg 10/14/19 09:00 10/15/19 08:17 Coreg PO 6.25 mg BID [facility] Administration Clopidogrel Bisulfate 75 mg 10/14/19 09:00 10/15/19 08:17 Plavix PO 75 mg DAILY [facility] Administration Enoxaparin Sodium 40 mg 10/14/19 09:00 10/15/19 08:18 Lovenox SC 40 mg 0900 [facility] Administration Hydralazine HCl 75 mg 10/14/19 09:00 10/15/19 08:17 Apresoline PO 75 mg TID [facility] Administration Pantoprazole Sodium 40 mg 10/14/19 09:00 10/15/19 08:17 Protonix PO 40 mg DAILY [facility] Administration Sodium Chloride 10 ml 10/13/19 22:49 10/14/19 08:52 Flush - Normal Saline IVF 10 ml PRN PRN Administration Saline Flush - Exam General Appearance: awake alert Eye: PERRL ENT: normocephalic atraumatic Neck: supple Heart: RRR Respiratory: CTAB Gastrointestinal: soft Extremities: no cyanosis Skin: normal turgor Neurological: no new deficit, speech deficit Neurological - other findings: Mild left residual hemiparesis Musculoskeletal: no muscle wasting Psychiatric: normal affect, normal behavior, A&O x 3, oriented to person, oriented to place, oriented to time Hosp A/P (1) Stroke Code(s): I63.9 - CEREBRAL INFARCTION, UNSPECIFIED Status: Acute (2) Hypertensive urgency Code(s): I16.0 - HYPERTENSIVE URGENCY Status: Acute (3) NSTEMI (non-ST elevated myocardial infarction) Code(s): I21.4 - NON-ST ELEVATION (NSTEMI) MYOCARDIAL INFARCTION Status: Acute (4) CAD (coronary artery disease) Code(s): I25.10 - ATHSCL HEART DISEASE OF COUNCIL CORONARY ARTERY W/O ANG PCTRS Status: Chronic Qualifiers: Coronary Disease-Associated Artery/Lesion type: [place] artery [place] vs. transplanted heart: [place] heart Associated angina: without angina Qualified Code(s): I25.10 - Atherosclerotic heart disease of [place] coronary artery without angina pectoris (5) COPD (chronic obstructive pulmonary disease) Status: Chronic Qualifiers: COPD type: unspecified COPD Qualified Code(s): J44.9 - Chronic obstructive pulmonary disease, unspecified (6) Cervical stenosis of spine Code(s): M48.02 - SPINAL STENOSIS, CERVICAL REGION Status: Chronic - Plan PT/OT, speech therapy 53 year old with worsening of slurred speech s/p prior stroke with left sided deficits. MRI brain reviewed which revealed acute infarction in left frontal region. Carotid dopplers reviewed which did not reveal significant stenosis. Telemetry. Neurochecks every 4 hours. Monitor BP and BG Continue aspirin, plavix and high intensity statin for secondary stroke prevention. PT/OT/Speech. 2D echo pending. Continue medical management per primary team. Plan discussed with the patient and the nursing staff.
[2019-10-15 15:54] VITALS: BP 173/91; TEMP 98.7
--- NOTE | 2019-10-15 16:01 | PDOC.HOSPP ---
- Subjective Encounter Date: 10/15/19 Encounter Time: 15:50 Subjective: f/u for L frontal CVA with dysarthria and RUE weakness and L MCA territorial distribution. Receiving ASA/Plavix currently. - Objective Vital Signs & Weight: Vital Signs (12 hours) Temp Pulse Resp BP BP BP Pulse Ox 10/15/19 15:53 98.7 F 53 L 16 173/91 H 97 10/15/19 14:21 50 L 170/91 H 10/15/19 11:58 97.7 F 60 16 157/88 H 94 L 10/15/19 08:17 60 177/90 H 10/15/19 07:51 98 F 60 16 177/90 H 97 10/15/19 04:33 98.3 F 60 18 150/95 H 95 Weight Weight 189 lb I&O: 10/14/19 10/15/19 10/16/19 06:59 06:59 06:59 Intake Total 120 560 Output Total 300 200 Balance -180 360 Result Diagrams: 10/14/19 04:21 10/14/19 04:21 Additional Labs: Laboratory Tests 10/13/19 10/13/19 10/14/19 17:50 23:42 04:21 AST 104 H ALT 164 H Triglycerides 84 Cholesterol 120 LDL Cholesterol, Calc 69 HDL Cholesterol 34 U Cannabinoids Screen Detected H Radiology Reviewed by me: Yes (MRI brain - L MCA territorial infarct, chronic isch white matter changes) EKG Reviewed by me: Yes (Tele - SR) Hospitalist ROS - Medication Medications: Active Medications Generic Name Dose Route Start Last Admin Trade Name Freq PRN Reason Stop Dose Admin Acetaminophen 650 mg 10/15/19 04:34 10/15/19 04:38 Tylenol PO 650 mg Q6H PRN Administration Pain Aspirin 325 mg 10/14/19 09:00 10/15/19 08:17 Ecotrin PO 325 mg DAILY [facility] Administration Atorvastatin Calcium 40 mg 10/14/19 21:00 10/14/19 20:31 Lipitor PO 40 mg HS [facility] Administration Carvedilol 6.25 mg 10/14/19 09:00 10/15/19 08:17 Coreg PO 6.25 mg BID [facility] Administration Clopidogrel Bisulfate 75 mg 10/14/19 09:00 10/15/19 08:17 Plavix PO 75 mg DAILY [facility] Administration Enoxaparin Sodium 40 mg 10/14/19 09:00 10/15/19 08:18 Lovenox SC 40 mg 0900 [facility] Administration Hydralazine HCl 75 mg 10/14/19 09:00 10/15/19 14:21 Apresoline PO 75 mg TID [facility] Administration Pantoprazole Sodium 40 mg 10/14/19 09:00 10/15/19 08:17 Protonix PO 40 mg DAILY [facility] Administration Sodium Chloride 10 ml 10/13/19 22:49 10/14/19 08:52 Flush - Normal Saline IVF 10 ml PRN PRN Administration Saline Flush - Exam General Appearance: NAD, awake alert Eye: PERRL, anicteric sclera ENT: normocephalic atraumatic, no oropharyngeal lesions Neck: supple, symmetric, no JVD, no thyromegaly, no lymphadenopathy Heart: RRR, no gallops, no rubs, normal peripheral pulses Heart - other findings: S1, S2 Respiratory: CTAB, no wheezes, no rales, no ronchi, normal chest expansion Gastrointestinal: soft, non-tender, non-distended, normal bowel sounds, no palpable masses Extremities: no cyanosis, no clubbing, no edema Skin: normal turgor, no lesions Psychiatric: normal affect, A&O x 3 Hosp A/P (1) Acute CVA (cerebrovascular accident) Code(s): I63.9 - CEREBRAL INFARCTION, UNSPECIFIED Status: Acute Plan: Continue dual-antiplatelet therapy with ASA/Plavix, general stroke protocol (2) Dysarthria Code(s): R47.1 - DYSARTHRIA AND ANARTHRIA Status: Acute (3) Hyperlipidemia Code(s): E78.5 - HYPERLIPIDEMIA, UNSPECIFIED Status: Chronic Qualifiers: Plan: Continue Lipitor 40mg HS (4) Hypertension Code(s): I10 - ESSENTIAL (PRIMARY) HYPERTENSION Status: Chronic Qualifiers: Hypertension type: essential hypertension Plan: Continue home BP regimen with Coreg/Hydralazine (5) Tobacco abuse Code(s): Z72.0 - TOBACCO USE Status: Chronic Plan: Tobacco cessation resources - Plan PT/OT, rn social work, out of bed/ambulate, DVT proph w/SCDs
--- NOTE | 2019-10-16 00:12 | DIS ---
DATE OF ADMISSION: 10/13/2019 DATE OF DISCHARGE: 10/15/2019 DISCHARGE DIAGNOSES: 1. Acute left MCA distribution cerebrovascular accident. 2. Dysarthria, mild secondary to #1. 3. Hypertension, stable. 4. Hyperlipidemia. 5. Tobacco abuse, ongoing. CONSULTATIONS: Dr. Gallardo with Neurology Service. PERTINENT LABORATORY AND X-RAY FINDINGS: AST 104, ALT 164, troponin I negative x1. Total cholesterol 120, triglycerides 84, HDL 34, LDL 69. CBC within normal limits. Urinalysis negative. Urine drug screen dated 10/13/2019, positive for cannabinoids. CT of the brain without contrast dated 10/13/2019, showed no acute intracranial process. Portable chest x-ray dated 10/13/2019, showed no acute cardiopulmonary process. Carotid Doppler study dated 10/14/2019, showed no hemodynamically significant stenosis. MRI of the brain dated 10/14/2019, showed small focal acute infarct of the left frontal lobe in the left middle cerebral artery distribution. Severe chronic ischemic white matter changes noted bilaterally. HOSPITAL COURSE: The patient was admitted to the Stroke Unit after initially presenting with dysarthria with left-sided weakness. The patient underwent general stroke evaluation including CT imaging of the brain showing no acute process. The patient underwent MRI imaging of the brain showing a small left frontal/MCA distribution infarct. The patient was increased to 325 mg aspirin daily in addition to Plavix 75 mg daily. The patient underwent general stroke protocol, however, was stable throughout the hospital course. Current recommendations are to use a cane with ambulation and continue general medical management. Overall, the patient did remain clinically stable during the hospital course. I have examined the patient at the time of discharge and discussed followup instructions. The patient verbalized understanding and agreement ready for discharge on 10/15/2019. DISCHARGE MEDICATIONS: 1. Enteric-coated aspirin 325 mg p.o. daily. 2. Plavix 75 mg p.o. daily. 3. Lipitor 40 mg p.o. at bedtime. 4. Carvedilol 6.25 mg p.o. b.i.d. 5. Catapres 0.1 mg p.o. b.i.d. 6. Hydralazine 75 mg p.o. t.i.d. FOLLOWUP: The patient may follow up with his primary care provider, Dr. Tessie Hammonds. CONDITION ON DISCHARGE: Stable. ACTIVITY: Ad-barrie. DIET: Heart healthy. CODE STATUS: Full. DISPOSITION: Home, 10/15/2019. TIME SPENT: Total time preparing and coordinating discharge is 32 minutes. Job ID: [id number]
--- NOTE | 2019-10-17 05:20 | PQF ---
Ronaldo Burrows CHARLES DO [id number] CLINICAL DOCUMENTATION CLARIFICATION FORM: POST DISCHARGE Addendum to original discharge summary date: ____ Late entry note date: __ DATE: 10/17/2019 ATTN:Carter Holman Please exercise your independent, professional judgment in responding to the clarification form. Clinical indicators are provided on the bottom of this form for your review Please check appropriate box(s) to clarify if the following diagnosis has been ruled in or ruled out: NSTEMI [ ] Ruled in diagnosis [ ] Continue to treat [ ] Resolved [ x ] Ruled out diagnosis [ ] Cannot rule out diagnosis [ ] Other diagnosis [ ] Unable to determine In addition, please specify: Present on Admission (POA): [ ] Yes [ x ] No [ ] Unable to determine For continuity of documentation, please document condition throughout progress notes and discharge summary. Thank You. CLINICAL INDICATORS - SIGNS / SYMPTOMS / LABS Laboratory 10/12 Troponin I 0.013 Vital signs 10/12 BP 173/101, Pulse 57, Resp 14, Temp 97.9 EKG 10/12 Impression: Sinus bradycardia, Conduction normal, ,ST segment normal, T wave normal PN p2 10/14 Denies Chest pain' PN p4 10/14 NSTEMI, HTN urgency RISK FACTORS H&P p1 10/12 HTN H&P p1 10/12 HLD H&P p1 10/12 Smoker H&P p1 10/12 Hx of CVA PN p2 10/14 - COPD Discharge summary p1 10/14 MCA infarction TREATMENTS JUN 26 Aspirin 325 mg oral JUN 26 Coreg 6.25 mg oral JUN 26 Lovenox 40 mg Sq JUN 26 Plavix 75 mg oral EKG 10/12 TTE 10/14 (This form is maintained as a part of the permanent medical record) 2014 [employer]. All Rights Reserved [email or web address]
--- NOTE | 2019-10-18 17:29 | EKG ---
Test Reason : Blood Pressure : / mmHG Vent. Rate : 053 BPM Atrial Rate : 053 BPM P-R Int : 130 ms QRS Dur : 114 ms QT Int : 462 ms P-R-T Axes : 035 -09 040 degrees QTc Int : 433 ms Sinus bradycardia Otherwise normal ECG Confirmed by LORNA DLE ROSARIO M.D. ([id number]), editor farm journal SHAMA SEVERINO ([id number]) on 10/18/2019 5:28:59 PM Referred By: Confirmed By:LORNA DEL ROSARIO M.D.
== END 2019-10-15 17:04 | disposition home or self-care (01) | DRG 65 ==
LOC: ERS 17:06 → 2SE 20:57 → OBSVTOIN 20:57
PROVIDERS: ADMIT Internal Medicine; ATTEND Internal Medicine
DX: I63.512 Cerebral infarction due to unspecified occlusion or stenosis of left middle cerebral artery (principal); G81.94 Hemiplegia, unspecified affecting left nondominant side; R47.1 Dysarthria and anarthria; I10 Essential (primary) hypertension; E78.5 Hyperlipidemia, unspecified; R29.700 NIHSS score 0; R40.2362 Coma scale, best motor response, obeys commands, at arrival to emergency department; R40.2142 Coma scale, eyes open, spontaneous, at arrival to emergency department; R40.2252 Coma scale, best verbal response, oriented, at arrival to emergency department; E78.00 Pure hypercholesterolemia, unspecified; F17.210 Nicotine dependence, cigarettes, uncomplicated; F12.10 Cannabis abuse, uncomplicated; B18.2 Chronic viral hepatitis C; M48.02 Spinal stenosis, cervical region; I08.1 Rheumatic disorders of both mitral and tricuspid valves; I16.0 Hypertensive urgency; I25.2 Old myocardial infarction; Z88.8 Allergy status to other drugs, medicaments and biological substances; Z79.899 Other long term (current) drug therapy; Z79.82 Long term (current) use of aspirin; Z79.02 Long term (current) use of antithrombotics/antiplatelets; Z86.73 Personal history of transient ischemic attack (TIA), and cerebral infarction without residual deficits; Z90.49 Acquired absence of other specified parts of digestive tract
CPT/HCPCS: 36415; 70450; 70551; 71045; 80048; 80053; 80061; 80306; 80307; 81001; 84484; 85025; 93005; 93306; 93880; 96372; G0378; J1650

== ENCOUNTER 2019-11-03 17:06 | Inpatient (IN) | payer SELFPAY ==
[2019-11-03] MEDS ORDERED: Nitroglycerin 2% Ointment 1 INCH/1 GM Packet ONE (17:53)
[2019-11-03] MEDS ORDERED: hydrALAZINE 20 MG/ML VIAL SLOW IVP PRN (17:56)
--- NOTE | 2019-11-03 19:00 | HP ---
CHIEF COMPLAINT: Left-sided weakness. HISTORY OF PRESENT ILLNESS: The patient is a 53-year-old male with past medical history of CVA, which was diagnosed earlier this month, hypertension, and hyperlipidemia, who presented to the hospital with new onset left upper extremity weakness and slurred speech that started at 1:30 in the afternoon. The patient presented to an outside where CT scan of the brain without contrast and CT angiogram of the head and neck were unrevealing. Subsequently, he was transferred to our facility for further evaluation. At this time, the patient's symptoms still present including the left upper extremity weakness. His alteration of speech has since improved. Since he is out of the window for tPA, this will not be administered. PAST MEDICAL HISTORY: As noted above. PAST SURGICAL HISTORY: Appendectomy, hernia repair, thumb surgery. SOCIAL HISTORY: The patient drinks daily with less than 5 drinks per day. Denies illicit drug use, but endorses smoking half a pack of cigarettes a day. PHYSICAL EXAMINATION: GENERAL: The patient is alert and oriented x3. HEENT: Head is normocephalic and atraumatic. Extraocular muscles are intact. NECK: Supple. CHEST: Clear to auscultation bilaterally. ABDOMEN: Soft, nontender, nondistended. NEUROLOGIC: Revealed normal cranial nerves 2 through 12. Left upper extremity weakness that is 3/5. No weakness involving any other extremity. ASSESSMENT: 1. Left-sided weakness and slurred speech. This will likely represent cerebrovascular accident and is proven otherwise with MRI. The patient will be admitted to a Neuro Telemetry unit. We will check MRI of the brain in the morning. Continue dual antiplatelet therapy with aspirin and Plavix. Continue high-intensity statin with atorvastatin 40 mg nightly. The patient underwent recent workup for cerebrovascular accident including echocardiogram, lipid profile, and A1c. We will consult Neurology. 2. Hypertension. We will allow permissive hypertension and treat if systolic blood pressure greater than 220 or diastolic greater than 120. 3. Hyperlipidemia. Continue statins as above. 4. Deep venous thrombosis prophylaxis. We will use heparin 5000 units q.8 hours. Job ID: [id number]
[2019-11-03 19:59] LABS: Troponin I 0.017 ng/mL (< 0.028)
[2019-11-03 22:09] LABS: Troponin I 0.028 ng/mL (< 0.028)
[2019-11-03 23:14] VITALS: BMI 30.7
[2019-11-03] MEDS: Atorvastatin Calcium 40 MG TAB PO SCH (23:42)
[2019-11-03] MEDS: Carvedilol 6.25 MG TAB PO SCH (23:42)
[2019-11-03] MEDS: Heparin 5,000 UNITS/ML VIAL SC SCH (23:43)
--- NOTE | 2019-11-04 08:59 | MRI ---
Exam: Brain MRI without contrast HISTORY: Transient ischemic attack. Left arm numbness. COMPARISON: 10/14/2019 FINDINGS: Calvarial marrow signal intensity: Appropriate T1 signal Gradient echo sequence: Stable hemosiderin deposition the left lentiform nucleus. No acute parenchyma l hemorrhage Brain parenchyma: No mass, mass effect or midline shift. Brain volume, age-appropriate. Cortical puga-white matter differentiation: Preserved Restricted diffusion: Central arterial flow is maintained. Small focus of restricted diffusion involv ing the right centrum semiovale. White matter signal intensities: T2, FLAIR white matter hyperintensities due to chronic small vessel ischemic changes. Cavitary lacunar infarcts are noted in the left and right saleem radiata. Sinuses: Adequate aeration of the paranasal sinuses and mastoid air cells. IMPRESSION: 1. Small focus of restricted diffusion due to acute infarct involving the right centrum semiovale. 2. Stable extensive chronic small vessel ischemic changes white matter. Stable white matter cavitary lacunar infarcts.
[2019-11-04] MEDS ORDERED: Clopidogrel Bisulfate 75 MG TAB PO SCH (09:00)
[2019-11-04] MEDS ORDERED: Aspirin 325 mg Enteric Coated Tablet PO SCH (09:00)
[2019-11-04] MEDS ORDERED: Clopidogrel Bisulfate 75 MG TAB ONE (09:09)
[2019-11-04] MEDS ORDERED: Aspirin 325 MG TAB ONE (09:09)
[2019-11-04] MEDS: Heparin 5,000 UNITS/ML VIAL SC SCH ×2 (10:14→22:46)
[2019-11-04] MEDS: Carvedilol 6.25 MG TAB PO SCH ×2 (10:19→22:45)
[2019-11-04 11:06] LABS: #Eosinphils 0.1 thou/uL (0.0-0.7); #Monocytes 0.8 thou/uL (0.11-0.59); #Neutrophils 3.4 thou/uL (1.40-6.50); %Basophils 0.7 % (0.0-1.0); %Eosinophils 1.7 % (0.0-10.0); %Lymphocytes 32.2 % (21.0-51.0); %Monocytes 11.9 % (0.0-10.0); %Neutrophils 53.5 % (42.0-75.0); Hemoglobin 14.9 g/dL (14.0-18.0); Mean Corpuscular HGB CONC 32.7 g/dL (32.0-36.0); Mean Corpuscular Hemoglobin 30.9 pg (27.0-31.0); Mean Corpuscular Volume 94.5 fL (78.0-98.0); Mean Platelet Volume 9.2 fL (7.4-10.4); Platelet Count 159 thou/uL (130-400); RBC Distribution Width 11.8 % (11.5-14.5); Red Blood Cell (RBC) Count 4.83 mill/uL (4.70-6.10); White Blood Cell (WBC) Count 6.3 thou/uL (4.8-10.8)
[2019-11-04 11:24] LABS: Hemoglobin A1c 5.4 % (4.0-6.0)
[2019-11-04 11:35] LABS: Anion Gap 9 mmol/L (10-20); BUN (Urea Nitrogen) 12 mg/dL (8.4-25.7); Calc. Creatinine Clearance 135 mL/min (70-130); Calcium 9.5 mg/dL (7.8-10.44); Carbon Dioxide 27 mmol/L (22-29); Cardiac Risk 3.3 (Less than 4.5); Chloride 104 mmol/L (98-107); Cholesterol 137 mg/dl (< 200 Desired); Estimated GFR-MDRD Greater than 90; Glucose 81 mg/dL (70-105); HDL Cholesterol 41 mg/dL (>60 Neg Risk); LDL Cholesterol, Calculated 82 mg/dL; Potassium 4.1 mmol/L (3.5-5.1); Sodium 136 mmol/L (136-145); Triglycerides 69 mg/dL (Less than 150)
--- NOTE | 2019-11-04 12:07 | CON ---
NEUROLOGY CONSULTATION DATE OF CONSULTATION: 11/04/2019 REASON FOR CONSULTATION: Left-sided weakness. HISTORY OF PRESENT ILLNESS: Mr. Burrows is a 53-year-old male with medical history significant for CVA, hypertension, and hyperlipidemia, presented to the hospital with new onset left upper and lower extremity weakness with slurred speech, which started around 1:30 in the afternoon yesterday. The patient also reports numbness in the left upper and lower extremities. He went to the an outside hospital, where the head CT was done, which was negative for acute intracranial pathology, and then CT angiogram of the head and neck was also done, which was negative for hemodynamically significant stenosis. He was transferred to [facility] for further management. The patient earlier had a stroke in September 2019 and had a whole workup done here at [facility]. He was discharged on aspirin and Plavix. According to the patient, he has been taking the medicines daily and denies missing any doses of the medications. The patient denies nausea, vomiting, headache, vertigo, loss of vision, blurred vision, loss of consciousness, or any abnormal body movements associated with the current episode of left-sided weakness. ALLERGIES: amlodipine, lisinopril PAST MEDICAL HISTORY: Hypertension, hyperlipidemia, and prior stroke. PAST SURGICAL HISTORY: Appendectomy with hernia repair. SOCIAL HISTORY: The patient smokes a half a pack a day. He drinks daily about four drinks per day. FAMILY HISTORY: No significant history PHYSICAL EXAMINATION: VITAL SIGNS: Blood pressure 195/100, pulse 88, and respiratory rate 18. CVS: Regular rate and rhythm. CHEST: Clear. ABDOMEN: Soft. NECK: No carotid bruit. NEUROLOGICAL: Mental status, the patient is alert and oriented to person, place , and time. Mild dysarthria. Recent and remote memory, intact. Fund of knowledge is appropriate. Cranial nerves 2 through 12 intact except 7, mild left facial droop. Motor; muscle tone is decreased in the left upper and lower extremities. Bulk is normal bilaterally. Strength 3/5 in the left upper and lower extremities and 5/ 5 in the right upper and lower extremities. Cerebellar, finger-nose testing decreased on the left secondary to weakness. Sensory; decreased sensation to pinprick and light touch in the left upper and lower extremities. Gait deferred due to the patient 's safety reasons. DATA REVIEWED: I reviewed the MRI of the brain, which was consistent with acute infarction in the right centrum semiovale. There is also evidence of old infarction. Carotid Dopplers and CT angiogram of the head and neck were negative for hemodynamically significant stenosis. 2D echocardiogram from 10/15/2019 reviewed, which did not show any thrombus or PFO and ejection fraction was 55% to 60%. ASSESSMENT AND PLAN: Mr. Burrows is a 53-year-old male, who presented with recurrent stroke associated with left-sided weakness and dysarthria in less than a month. The patient has been compliant with dual anti-platelet therapy with aspirin and Plavix. Consider switching to Aggrenox. Neuro checks every 4 hours. Permissive blood pressure control at this time. Continue high-intensity statin for secondary stroke prevention. No need to repeat an echocardiogram since it was done on 10/15/2019. Recheck lipid profile and hemoglobin A1c. Continue home medications. Continue telemetry, PT/OT/speech. DVT prophylaxis. We will continue to follow. Job ID: [id number] SETH
--- NOTE | 2019-11-04 14:22 | PDOC.HOSPP ---
- Subjective Encounter Date: 11/04/19 Subjective: The patient still having persistent left arm weakness, right arm numbness, and some dysarthria. - Objective Vital Signs & Weight: Vital Signs (12 hours) Temp Pulse Resp BP BP Pulse Ox 11/04/19 11:55 98.4 F 50 L 16 179/79 H 96 11/04/19 10:19 178/88 H Weight Weight 190 lb 0.615 oz Result Diagrams: 11/04/19 10:51 11/04/19 10:51 Hospitalist ROS - Medication Medications: Active Medications Generic Name Dose Route Start Last Admin Trade Name Freq PRN Reason Stop Dose Admin Atorvastatin Calcium 40 mg 11/03/19 21:00 11/03/19 23:42 Lipitor PO 40 mg HS SYLVIA Administration Carvedilol 6.25 mg 11/03/19 21:00 11/04/19 10:19 Coreg PO 6.25 mg BID SYLVIA Administration Heparin Sodium (Porcine) 5,000 units 11/03/19 21:00 11/04/19 10:14 Heparin SC 5,000 units Q12HR SYLVIA Administration - Exam General Appearance: awake alert ENT: normocephalic atraumatic Neck: supple, no JVD Heart: RRR Respiratory: normal chest expansion, no tachypnea Extremities: no cyanosis, no clubbing Neurological: cranial nerve grossly intact Hosp A/P (1) Acute CVA (cerebrovascular accident) Code(s): I63.9 - CEREBRAL INFARCTION, UNSPECIFIED Status: Acute (2) Hypertensive urgency Code(s): I16.0 - HYPERTENSIVE URGENCY Status: Acute (3) CAD (coronary artery disease) Code(s): I25.10 - ATHSCL HEART DISEASE OF [place] CORONARY ARTERY W/O ANG PCTRS Status: Chronic Qualifiers: (4) COPD (chronic obstructive pulmonary disease) Status: Chronic Qualifiers: (5) Hyperlipidemia Code(s): E78.5 - HYPERLIPIDEMIA, UNSPECIFIED Status: Chronic Qualifiers: (6) Tobacco abuse Code(s): Z72.0 - TOBACCO USE Status: Chronic - Plan MRI of the brain showing new CVA involving the right centrum semiovale despite being on aspirin and Plavix. Neurology recommended changing antiplatelet therapy to Aggrenox. No marked vascular abnormalities and CTA of the head and neck. Echocardiogram was performed recently and will not be repeated. monitor worker did not show any evidence of atrial fibrillation so far. Continue permissive hypertension for another 24 hours. PT and OT evaluation.
[2019-11-04] MEDS: Atorvastatin Calcium 40 MG TAB PO SCH (22:46)
[2019-11-04] MEDS: Aggrenox 200-25mg CAP PO SCH (22:46)
[2019-11-04] MEDS: Acetaminophen 325 MG TAB PO PRN (23:39)
[2019-11-05 00:54] LABS: Troponin I 0.016 ng/mL (< 0.028)
[2019-11-05] MEDS: Heparin 5,000 UNITS/ML VIAL SC SCH ×2 (09:08→20:08)
[2019-11-05] MEDS: Carvedilol 6.25 MG TAB PO SCH (09:08)
[2019-11-05] MEDS: Aggrenox 200-25mg CAP PO SCH ×2 (09:08→20:09)
[2019-11-05] MEDS: Acetaminophen 325 MG TAB PO PRN ×3 (13:09→20:08)
--- NOTE | 2019-11-05 13:56 | PDOC.HOSPP ---
- Subjective Encounter Date: 11/05/19 Subjective: The patient's left upper extremity weakness is unchanged. - Objective Vital Signs & Weight: Vital Signs (12 hours) Temp Pulse Resp BP Pulse Ox 11/05/19 11:44 97.6 F 57 L 20 186/101 H 94 L 11/05/19 09:05 55 L 11/05/19 08:59 96 11/05/19 07:48 97.8 F 45 L 20 190/94 H 96 11/05/19 04:30 97.6 F 49 L 20 190/93 H 95 Weight Weight 190 lb 0.615 oz I&O: 11/04/19 11/05/19 11/06/19 06:59 06:59 06:59 Intake Total 600 Output Total 200 Balance 400 Result Diagrams: 11/04/19 10:51 11/04/19 10:51 Hospitalist ROS - Medication Medications: Active Medications Generic Name Dose Route Start Last Admin Trade Name Freq PRN Reason Stop Dose Admin Acetaminophen 650 mg 11/04/19 23:06 11/05/19 13:09 Tylenol PO 650 mg Q4H PRN Administration Headache/Fever/Mild Pain (1-3) Atorvastatin Calcium 40 mg 11/03/19 21:00 11/04/19 22:46 Lipitor PO 40 mg HS SYLVIA Administration Dipyridamole/Aspirin 1 cap 11/04/19 21:00 11/05/19 09:08 Aggrenox PO 1 cap BID SYLVIA Administration Heparin Sodium (Porcine) 5,000 units 11/03/19 21:00 11/05/19 09:08 Heparin SC 5,000 units Q12HR SYLVIA Administration - Exam General Appearance: awake alert Neck: supple Heart: RRR Respiratory: normal chest expansion, no tachypnea Neurological: cranial nerve grossly intact Hosp A/P (1) Acute CVA (cerebrovascular accident) Code(s): I63.9 - CEREBRAL INFARCTION, UNSPECIFIED Status: Acute (2) Hypertensive urgency Code(s): I16.0 - HYPERTENSIVE URGENCY Status: Acute (3) CAD (coronary artery disease) Code(s): I25.10 - ATHSCL HEART DISEASE OF [place] CORONARY ARTERY W/O ANG PCTRS Status: Chronic Qualifiers: (4) COPD (chronic obstructive pulmonary disease) Status: Chronic Qualifiers: (5) Hyperlipidemia Code(s): E78.5 - HYPERLIPIDEMIA, UNSPECIFIED Status: Chronic Qualifiers: (6) Tobacco abuse Code(s): Z72.0 - TOBACCO USE Status: Chronic - Plan MRI of the brain showing new CVA involving the right centrum semiovale despite being on aspirin and Plavix. Neurology recommended changing antiplatelet therapy to Aggrenox. No marked vascular abnormalities and CTA of the head and neck. Echocardiogram was performed recently and will not be repeated. library monitor did not show any evidence of atrial fibrillation so far. Hydralazine, clonidine, and Imdur to achieve better blood pressure control. Continue PT and OT. Case management to discuss options of outpatient therapy.
[2019-11-05] MEDS: cloNIDine 0.1 MG TAB PO SCH ×2 (15:31→20:08)
[2019-11-05] MEDS: hydrALAZINE 25 MG TAB PO SCH ×2 (15:32→20:08)
--- NOTE | 2019-11-05 16:43 | CT ---
CT BRAIN WITHOUT CONTRAST: 11/05/19 HISTORY: Severe headache. COMPARISON: 10/13/19. FINDINGS: Changes of chronic small vessel ischemic disease is again seen. No evidence of acute infarct, hemorrh age, midline shift or abnormal extra-axial fluid collections are seen. The acute lacunar infarction i n the right centrum semiovale noted on the previous day's MRI is not definitely seen on the current s tudy. The bony calvarium is intact. The visualized paranasal sinuses and mastoid air cells are well a erated. IMPRESSION: No CT evidence of acute intracranial process. POS: [facility]
[2019-11-05] MEDS: Atorvastatin Calcium 40 MG TAB PO SCH (20:08)
[2019-11-05] MEDS ORDERED: ALPRAZolam 0.25 MG TAB PO SCH (23:59)
[2019-11-05] MEDS ORDERED: traMADol HCl 50 MG TAB PO SCH (23:59)
[2019-11-06] MEDS: Acetaminophen 325 MG TAB PO PRN (06:41)
[2019-11-06] MEDS ORDERED: traMADol HCl 50 MG TAB PO PRN ×2 (08:54→09:39)
[2019-11-06] MEDS: hydrALAZINE 25 MG TAB PO SCH ×2 (10:17→14:53)
[2019-11-06] MEDS: cloNIDine 0.1 MG TAB PO SCH ×2 (10:18→14:53)
[2019-11-06] MEDS: Heparin 5,000 UNITS/ML VIAL SC SCH (10:18)
[2019-11-06] MEDS: Aggrenox 200-25mg CAP PO SCH (10:18)
[2019-11-06 12:32] VITALS: BP 146/85; TEMP 98
--- NOTE | 2019-11-06 13:37 | PDOC.HOSPP ---
- Subjective Encounter Date: 11/06/19 Subjective: NEUROLOGY PROGRESS NOTE Patient alert, oriented but complains of headache. Most likely related to initiation of aggrenox.. - Objective Vital Signs & Weight: Vital Signs (12 hours) Temp Pulse Resp BP BP BP BP 11/06/19 12:00 98 F 48 L 16 146/85 H 11/06/19 10:17 52 L 171/88 H 11/06/19 09:41 171/88 H 165/84 H 11/06/19 08:10 11/06/19 07:44 97.5 F L 56 L 16 143/83 H 11/06/19 03:05 97.4 F L 50 L 20 144/82 H Pulse Ox 11/06/19 12:00 99 11/06/19 10:17 11/06/19 09:41 11/06/19 08:10 97 11/06/19 07:44 97 11/06/19 03:05 96 Weight Weight 190 lb 0.615 oz I&O: 11/05/19 11/06/19 11/07/19 06:59 06:59 06:59 Intake Total 600 Output Total 200 Balance 400 Result Diagrams: 11/04/19 10:51 11/04/19 10:51 Radiology Reviewed by me: Yes EKG Reviewed by me: Yes Hospitalist ROS - Review of Systems Constitutional: denies: fever, chills, sweats, weakness, malaise, other Eyes: denies: pain, vision change, conjunctivae inflammation, eyelid inflammation, redness, other ENT: denies: ear pain, ear discharge, nose pain, nose discharge, nose congestion , mouth pain, mouth swelling, throat pain, throat swelling, other Respiratory: denies: cough, dry, shortness of breath, hemoptysis, SOB with excertion, pleuritic pain, sputum, wheezing, other Cardiovascular: denies: chest pain, palpitations, orthopnea, paroxysmal noc. dyspnea, edema, light headedness, other Gastrointestinal: denies: nausea, vomiting, abdominal pain, diarrhea, constipation, melena, hematochezia, other Genitourinary: denies: dysuria, frequency, incontinence, hematuria, retention, other Musculoskeletal: denies: neck pain, shoulder pain, arm pain, back pain, hand pain, leg pain, foot pain, other Skin: denies: rash, lesions, maureen, bruising, other Neurological: reports: weakness, numbness, incoordination, change in speech - Medication Medications: Active Medications Generic Name Dose Route Start Last Admin Trade Name Jairo PRN Reason Stop Dose Admin Acetaminophen 650 mg 11/04/19 23:06 11/06/19 06:41 Tylenol PO 650 mg Q4H PRN Administration Headache/Fever/Mild Pain (1-3) Atorvastatin Calcium 40 mg 11/03/19 21:00 11/05/19 20:08 Lipitor PO 40 mg HS SYLVIA Administration Clonidine 0.1 mg 11/05/19 15:00 11/06/19 10:18 Catapres PO 0.1 mg TID SYLVIA Administration Dipyridamole/Aspirin 1 cap 11/04/19 21:00 11/06/19 10:18 Aggrenox PO 1 cap BID SYLVIA Administration Heparin Sodium (Porcine) 5,000 units 11/03/19 21:00 11/06/19 10:18 Heparin SC 5,000 units Q12HR SYLVIA Administration Hydralazine HCl 75 mg 11/05/19 15:00 11/06/19 10:17 Apresoline PO 75 mg TID SYLVIA Administration Isosorbide Mononitrate 30 mg 11/06/19 09:00 11/06/19 10:18 Imdur Er PO 30 mg DAILY SYLVIA Administration Tramadol HCl 50 mg 11/06/19 09:39 11/06/19 10:20 Ultram PO 50 mg Q6H PRN Administration Pain - Exam General Appearance: awake alert Eye: PERRL ENT: normocephalic atraumatic Neck: supple Heart: RRR Respiratory: CTAB Gastrointestinal: soft Extremities: no cyanosis Skin: normal turgor Neurological: facial droop, hemiplegia, speech deficit Neurological - other findings: left hemiparesis, receptive aphasia Musculoskeletal: normal tone, no muscle wasting Psychiatric: normal affect, normal behavior, A&O x 3 Hosp A/P (1) Acute CVA (cerebrovascular accident) Code(s): I63.9 - CEREBRAL INFARCTION, UNSPECIFIED Status: Acute (2) Dysarthria Code(s): R47.1 - DYSARTHRIA AND ANARTHRIA Status: Acute (3) Hypertensive urgency Code(s): I16.0 - HYPERTENSIVE URGENCY Status: Acute (4) CAD (coronary artery disease) Code(s): I25.10 - ATHSCL HEART DISEASE OF [place] CORONARY ARTERY W/O ANG PCTRS Status: Chronic Qualifiers: - Plan PT/OT, speech therapy, DVT proph w/SCDs 53 year old with acute onset left sided weakness. Imaging positive for acute infarction MRI brain reviewed and was consistent with acute infarction. Switched to aggrenox due to asa and plavix failure. Complaing of headache which is a side-effect of aggrenox and takes few days to resolve. Treat symptomatically. Continue telemetry. Neurochecks every 4 hours. Continue high intensity statin for secondary stroke prevention. Strict control of BP and BG. PT/OT/Speech. Continue medical management per primary team. Plan discussed with patient and the floor team during CARLOS coyd.
--- NOTE | 2019-11-07 01:36 | DIS ---
DATE OF ADMISSION: 11/03/2019 DATE OF DISCHARGE: 11/06/2019 DISCHARGE DIAGNOSES: 1. Acute cerebrovascular accident. 2. Hypertensive emergency. 3. Coronary artery disease. 4. Chronic obstructive pulmonary disease. 5. Hyperlipidemia. 6. Tobacco abuse. DISCHARGE MEDICATIONS: 1. Tylenol 650 mg orally q.6 hours as needed for headache. 2. Aggrenox 1 capsule orally twice daily. 3. Clonidine 0.1 mg orally t.i.d. 4. Hydralazine 75 mg orally t.i.d. 5. Imdur 30 mg orally daily. HISTORY OF PRESENT ILLNESS AND HOSPITAL COURSE: The patient is a 53-year-old male with past medical history of CVA diagnosed earlier this month. He also has history of hypertension and hyperlipidemia. He presented to the hospital with new left upper extremity weakness. CT scan of the head and CTA of the head and neck did not reveal any acute abnormalities. MRI of the brain showed new CVA involving the right centrum semiovale despite the patient being on aspirin and Plavix. Neurology was consulted and recommended changing antiplatelet therapy to Aggrenox. The patient's blood pressure was allowed to be elevated initially as part of permissive hypertension and subsequently was controlled with adding antihypertensive medications. The patient's weakness slightly improved prior to discharge. Outpatient followup with PCP was recommended in 1 week. Job ID: [id number]
== END 2019-11-06 14:55 | disposition home health service (06) | DRG 65 ==
LOC: ERS 17:06 → OBSVTOIN 17:58 → ERHOLD 17:58 → 2SE 11-04 12:11
PROVIDERS: ADMIT Internal Medicine; ATTEND Internal Medicine
DX: I63.89 Other cerebral infarction (principal); G81.94 Hemiplegia, unspecified affecting left nondominant side; I16.1 Hypertensive emergency; E78.00 Pure hypercholesterolemia, unspecified; F17.210 Nicotine dependence, cigarettes, uncomplicated; R40.2412 Glasgow coma scale score 13-15, at arrival to emergency department; R47.81 Slurred speech; I10 Essential (primary) hypertension; R47.1 Dysarthria and anarthria; I16.0 Hypertensive urgency; I25.10 Atherosclerotic heart disease of native coronary artery without angina pectoris; R29.707 NIHSS score 7; J44.9 Chronic obstructive pulmonary disease, unspecified; Z88.8 Allergy status to other drugs, medicaments and biological substances; Z90.49 Acquired absence of other specified parts of digestive tract; Z79.899 Other long term (current) drug therapy; Z79.82 Long term (current) use of aspirin
CPT/HCPCS: 36415; 70450; 70551; 80048; 80061; 83036; 84484; 85025; 94760; G0378; J1644

== ENCOUNTER 2020-05-05 21:39 | Inpatient (IN) | payer MEDICAID, OTHER ==
[2020-05-05] MEDS ORDERED: Diltiazem 125 MG/25 ML ONE (21:49)
[2020-05-05] MEDS ORDERED: Aspirin Chewable 81 MG TAB ONE (22:10)
--- NOTE | 2020-05-05 22:25 | RAD ---
Portable frontal chest radiograph: 05/05/2020 COMPARISON: 10/14/2019 HISTORY: Weakness with shortness of breath FINDINGS: The heart and mediastinal contours are stable. No pneumothorax or pleural fluid. No focal c onsolidation or alveolar edema. Stable atherosclerotic calcification of the aortic arch. IMPRESSION: Stable appearance of the chest-no acute findings..
[2020-05-05 22:32] LABS: #Basophils 0.1 thou/uL (0.0-0.2); #Eosinphils 0.1 thou/uL (0.0-0.7); #Lymphocytes 1.8 thou/uL (1.20-3.40); #Neutrophils 6.2 thou/uL (1.40-6.50); %Basophils 0.6 % (0.0-1.0); %Eosinophils 0.9 % (0.0-10.0); %Lymphocytes 20.1 % (21.0-51.0); %Monocytes 10.5 % (0.0-10.0); %Neutrophils 67.8 % (42.0-75.0); Hemoglobin 17.4 g/dL (14.0-18.0); Mean Corpuscular HGB CONC 33.9 g/dL (32.0-36.0); Mean Corpuscular Volume 94.4 fL (78.0-98.0); Mean Platelet Volume 9.4 fL (7.4-10.4); Platelet Count 193 thou/uL (130-400); RBC Distribution Width 11.6 % (11.5-14.5); Red Blood Cell (RBC) Count 5.44 mill/uL (4.70-6.10); White Blood Cell (WBC) Count 9.1 thou/uL (4.8-10.8)
[2020-05-05] MEDS ORDERED: Magnesium 2 GM/50 ML BAG (IN WATER) ONE (22:45)
[2020-05-05 22:52] LABS: ALT (SGPT) 95 U/L (8-55); AST (SGOT) 53 U/L (5-34); Alkaline Phosphatase 76 U/L (40-110); Anion Gap 16 mmol/L (10-20); BUN (Urea Nitrogen) 10 mg/dL (8.4-25.7); Bilirubin, Total 0.7 mg/dL (0.2-1.2); Calc. Creatinine Clearance 0 mL/min (70-130); Calcium 9.3 mg/dL (7.8-10.44); Carbon Dioxide 23 mmol/L (22-29); Chloride 105 mmol/L (98-107); Globulin 4.8 g/dL (2.4-3.5); Glucose 169 mg/dL (70-105); Potassium 3.6 mmol/L (3.5-5.1); Protein, Total 8.8 g/dL (6.0-8.3); Sodium 140 mmol/L (136-145)
[2020-05-05 23:13] LABS: CKMB 1.9 ng/mL (0-6.6)
[2020-05-05] MEDS ORDERED: Enoxaparin Sodium 80 MG/0.8 ML SYRINGE ONE (23:25)
[2020-05-05 23:36] LABS: SARS-CoV-2 NAA Rapid Test Not Detected (NotDetected)
[2020-05-06 01:49] LABS: Troponin I 0.102 ng/mL (< 0.028)
[2020-05-06] MEDS ORDERED: cloNIDine 0.1 MG TAB PO PRN ×2 (05:20→05:40)
[2020-05-06 05:38] LABS: Troponin I 0.161 ng/mL (< 0.028)
[2020-05-06] MEDS ORDERED: Diltiazem 125 MG/25 ML ONE (05:39)
[2020-05-06] MEDS ORDERED: Acetaminophen 325 MG TAB PO PRN (05:40)
[2020-05-06] MEDS ORDERED: hydrALAZINE 20 MG/ML VIAL SLOW IVP PRN (05:40)
[2020-05-06] MEDS ORDERED: Guaifenesin DM 100-10/5 ML UDCUP PO PRN (05:40)
[2020-05-06] MEDS ORDERED: HYDROcodone/Acetaminophen 5/325 mg Tablet PO PRN (05:40)
[2020-05-06] MEDS ORDERED: Labetalol HCl 100 MG/20 ML VIAL SLOW IVP PRN (05:40)
[2020-05-06] MEDS ORDERED: Promethazine HCl 12.5 MG in Sodium Chloride 0.9% 50 ML IVPB PRN (05:40)
[2020-05-06] MEDS ORDERED: Ondansetron PF 4 MG/2 ML Vial IVP PRN (05:40)
[2020-05-06] MEDS ORDERED: Ipratropium Bromide 2.5 ml Neb NEB PRN (05:42)
[2020-05-06] MEDS ORDERED: Electrolyte Replacement Protocol 1 EACH FS SCH (05:45)
[2020-05-06] MEDS ORDERED: Azithromycin 500 MG in Syringe 0 ML IVPB SCH (05:45)
--- NOTE | 2020-05-06 05:49 | PDOC.HHP ---
Hospitalist HPI - History of Present Illness Dizziness History of Present Illness: Patient is a 54 year old male with PMH HTN, CVA, HLD, spinal stenosis, NV who presents to ED for 5 hours of weakness, SOB. Patient reports earlier this evening, patient developed generalized weakness, shortness of breath. EMS called and on arrival patient found to be in atrial fibrillation with RVR w/ HR 182, patient reports this is first ever incidence of atrial fibrillation. he also reported some hand numbness, no chest pain or syncope. he was given adenosine, on arrival to ED still in afib rate 150-160s. patient given diltiazem bolus and drip with improvement to 110s. patient reports wheezing to me, is active smoker. denies any history of COPD. wheezing present x 1 day. patient given lovenox, CXR w no acute findings, patient admitted for further workup and care Hospitalist ROS - Review of Systems Constitutional: denies: fever, chills, sweats, weakness, malaise, other Eyes: denies: pain, vision change, conjunctivae inflammation, eyelid inflammation, redness, other ENT: denies: ear pain, ear discharge, nose pain, nose discharge, nose congestion, mouth pain, mouth swelling, throat pain, throat swelling, other Respiratory: reports: cough, shortness of breath, wheezing. denies: dry, hemoptysis, SOB with excertion, pleuritic pain, sputum, other Cardiovascular: reports: palpitations. denies: chest pain, orthopnea, paroxysmal noc. dyspnea, edema, light headedness, other Gastrointestinal: denies: nausea, vomiting, abdominal pain, diarrhea, constipation, melena, hematochezia, other Genitourinary: denies: dysuria, frequency, incontinence, hematuria, retention, other Musculoskeletal: denies: neck pain, shoulder pain, arm pain, back pain, hand pain, leg pain, foot pain, other Skin: denies: rash, lesions, maureen, bruising, other Neurological: denies: weakness, numbness, incoordination, change in speech, confusion, seizures, other All other systems reviewed; all pertinent +/- noted in HPI/Subj - Medication Medications: VITAL SIGNS SunMay 05, 2020 21:44 ELIZABETH Alvarez Jessica BP: 181/121 MAP: 141 Pulse: 166 Resp: 20 Temp: 98.4 (Oral) Pain: 0 O2 sat: 97 on (Room Air) Time: 05/05/2020 21:44. Hospitalist History - Past Medical History Other Medical History: HTN, CVA, HLD, spinal stenosis, NV - Past Surgical History Past Surgical History: reports: Other ([facility] CEA) Other Surgical History: Surgical history of appendectomy, Surgical history of hernia repair. L THUMB SX. - Family History Family History: reports: no pertinent history - Social History Smoking Status: Current some day smoker Alcohol: reports: Occassional Drugs: reports: none, marijuana - Exam General Appearance: NAD, awake alert Eye: PERRL, anicteric sclera ENT: normocephalic atraumatic, no oropharyngeal lesions, moist mucosa Neck: supple, symmetric, no JVD, no thyromegaly, no lymphadenopathy, no carotid bruit Heart: no murmur, no gallops, no rubs, normal peripheral pulses, irregular Respiratory: CTAB, no rales, no ronchi, normal chest expansion, no tachypnea, normal percussion, wheezes Gastrointestinal: soft, non-tender, non-distended, normal bowel sounds, no palpable masses, no hepatomegaly, no splenomegaly, no bruit Extremities: no cyanosis, no clubbing, no edema Skin: normal turgor, no lesions, no rashes Neurological: cranial nerve grossly intact, normal sensation to touch, no weakness, no focal deficits, no new deficit Musculoskeletal: normal tone, normal strength, no muscle wasting Psychiatric: normal affect, normal behavior, A&O x 3 Hospitalist Results - Labs Result Diagrams: 05/05/20 22:14 05/05/20 22:14 Lab results: WBC 9.1 thou/uL (4.8-10.8) 05/05/20 22:14 Hgb 17.4 g/dL (14.0-18.0) 05/05/20 22:14 Hct 51.4 % (42.0-52.0) 05/05/20 22:14 MCV 94.4 fL (78.0-98.0) 05/05/20 22:14 Plt Count 193 thou/uL (130-400) 05/05/20 22:14 Neutrophils % 67.8 % (42.0-75.0) 05/05/20 22:14 Sodium 140 mmol/L (136-145) 05/05/20 22:14 Potassium 3.6 mmol/L (3.5-5.1) 05/05/20 22:14 Chloride 105 mmol/L (98-107) 05/05/20 22:14 Carbon Dioxide 23 mmol/L (22-29) 05/05/20 22:14 BUN 10 mg/dL (8.4-25.7) 05/05/20 22:14 Creatinine 0.88 mg/dL (0.7-1.3) 05/05/20 22:14 Glucose 169 mg/dL (70-105) H 05/05/20 22:14 Calcium 9.3 mg/dL (7.8-10.44) 05/05/20 22:14 Total Bilirubin 0.7 mg/dL (0.2-1.2) 05/05/20 22:14 AST 53 U/L (5-34) H 05/05/20 22:14 ALT 95 U/L (8-55) H 05/05/20 22:14 Alkaline Phosphatase 76 U/L (40-110) 05/05/20 22:14 CK-MB (CK-2) 1.9 ng/mL (0-6.6) 05/05/20 22:14 Troponin I 0.161 ng/mL (< 0.028) H 05/06/20 04:31 Serum Total Protein 8.8 g/dL (6.0-8.3) H 05/05/20 22:14 Albumin 4.0 g/dL (3.5-5.0) 05/05/20 22:14 Additional comment: RADIOLOGY XR Chest 1 View Portable Observe DT: SunMay 05, 2020 21:52 CXRP Portable frontal chest radiograph: 05/05/2020 COMPARISON: 10/14/2019 HISTORY: Weakness with shortness of breath FINDINGS: The heart and mediastinal contours are stable. No pneumothorax or pleural fluid. No focal c onsolidation or alveolar edema. Stable atherosclerotic calcification of the aortic arch. IMPRESSION: Stable appearance of the chest-no acute findings.. - EKG Interpretation EKG: atrial fibrillation rate [address] changes Hospitalist H&P A/P - Plan Plan: Patient is a 54 year old male with PMH HTN, CVA, HLD, spinal stenosis, NV who presents to ED for 5 hours of weakness, SOB. # atrial fibrillation w/ RVR - first ever episode, rate controlled in ED on diltiazem drip - admit to telemetry - continue diltiazem drip - consult cardiology - continue lovenox # COPD - w/ exacerbation, new diagnosis. no pneumonia on CXR - start steroids, azithromycin, ipratroprium nebs # HTN - resume home medications # history of CVA - continue home meds, no nurologic changes # tobacco abuse - counselled to stop for 4 minutes DVT/GI ppx
[2020-05-06] MEDS ORDERED: Diltiazem 125 MG in Sodium Chloride 0.9% 100 ML IVPB SCH (06:00)
[2020-05-06] MEDS ORDERED: methylPREDNISolone Sod Succ/PF 125 MG/2 ML VIAL IVP SCH (06:00)
[2020-05-06 06:23] VITALS: BMI 26.2
[2020-05-06] MEDS ORDERED: methylPREDNISolone Sod Succ 40 MG VIAL ONE (06:50)
[2020-05-06] MEDS: Mometasone 100 MCG/Formoterol 5 MCG 120 PUFF INHALER INH SCH ×2 (07:54→18:44)
[2020-05-06] MEDS: Ipratropium Bromide 2.5 ml Neb NEB SCH ×3 (07:57→18:43)
[2020-05-06] MEDS ORDERED: Azithromycin 500 MG in Sodium Chloride 0.9% 250 ML 250 ML IVPB SCH (08:00)
[2020-05-06] MEDS ORDERED: Azithromycin 500 MG VIAL ONE (08:30)
[2020-05-06] MEDS ORDERED: Famotidine 20 MG TAB ONE (08:30)
[2020-05-06] MEDS ORDERED: Aggrenox 200-25mg CAP PO SCH (09:00)
[2020-05-06] MEDS: Famotidine 20 MG TAB PO SCH ×2 (10:11→21:27)
[2020-05-06] MEDS ORDERED: Amiodarone 200 MG TAB PO SCH ×2 (12:15→15:00)
[2020-05-06] MEDS ORDERED: Enoxaparin Sodium 80 MG/0.8 ML SYRINGE SC SCH ×3 (12:30→21:00)
[2020-05-06] MEDS ORDERED: Metoprolol Tartrate 5 MG/5 ML VIAL IVP SCH (12:30)
[2020-05-06] MEDS ORDERED: Metoprolol Tartrate 5 MG/5 ML VIAL ONE (13:01)
[2020-05-06] MEDS ORDERED: Enoxaparin Sodium 80 MG/0.8 ML SYRINGE ONE (13:02)
--- NOTE | 2020-05-06 15:14 | PDOC.HOSPP ---
- Subjective Encounter Date: 05/06/20 Encounter Time: 11:00 Subjective: Patient still in the ER holding area had a diltiazem drip running. His heart rate is currently controlled he is normotensive. He had a chest discomfort yesterday and some soreness but today he feels okay not in any pain or short of breath - Objective Vital Signs & Weight: Vital Signs (12 hours) Temp Pulse Resp BP Pulse Ox 05/06/20 14:59 66 18 95 05/06/20 11:00 98.4 F 05/06/20 10:00 119 H 19 158/106 H 96 05/06/20 08:00 96 05/06/20 07:57 71 16 95 05/06/20 07:54 71 16 95 05/06/20 07:00 97.2 F L Weight Weight 178 lb 0.02 oz Most Recent Monitor Data Heart Rate from ECG 68 NIBP 148/82 NIBP BP-Mean 104 Respiration from ECG 16 SpO2 97 I&O: 05/05/20 05/06/20 05/07/20 06:59 06:59 06:59 Intake Total 1165 Output Total 400 Balance 765 Result Diagrams: 05/05/20 22:14 05/05/20 22:14 Hospitalist ROS - Medication Medications: Active Medications Generic Name Dose Route Start Last Admin Trade Name Freq PRN Reason Stop Dose Admin Amiodarone HCl 400 mg 05/06/20 15:00 05/06/20 13:34 Amiodarone 200 Mg Tab PO Not Given TID SYLVIA Diltiazem HCl 30 mg 05/06/20 13:00 05/06/20 13:27 Diltiazem Hcl 30 Mg Tablet PO 30 mg QID SYLVIA Administration Dipyridamole/Aspirin 1 cap 05/06/20 09:00 05/06/20 10:11 Aggrenox 200-25mg Cap PO 1 cap BID SYLVIA Administration Famotidine 20 mg 05/06/20 09:00 05/06/20 10:11 Famotidine 20 Mg Tab PO 20 mg BID SYLVIA Administration Ipratropium [place] 2.5 ml 05/06/20 07:00 05/06/20 14:59 Ipratropium [place] 2.5 Ml Neb NEB 2.5 ml [id number] SYLVIA Administration Isosorbide Mononitrate 30 mg 05/06/20 09:00 05/06/20 10:11 Isosorbide Mononitrate Er 30 Mg Tab PO 30 mg DAILY SYLVIA Administration Mometasone Furoate/Formoterol Fumar 1 puff 05/06/20 06:30 05/06/20 07:54 Mometasone 100 Mcg/Formoterol 5 Mcg 120 Puff Inhaler INH 1 puff BID-RT SYLVIA Administration Sodium Chloride 10 ml 05/06/20 09:00 05/06/20 10:11 Flush - Normal Saline 10 Ml Syringe IVF 10 ml Q12HR SYLVIA Administration - Exam General Appearance: NAD, awake alert ENT: normocephalic atraumatic Neck: supple Heart: irregular Respiratory: CTAB, normal chest expansion Gastrointestinal: soft, normal bowel sounds Extremities: no edema Neurological: cranial nerve grossly intact, no focal deficits Psychiatric: A&O x 3 Hosp A/P - Plan A. fib with RVR -Continue Cardizem drip -Lovenox twice a day therapeutic dose -Cardiology consult -Cardizem p.o. started to wean him off the drip COPD without exacerbation -Flu and Covid negative -Zithromax and bronchodilators History of right upper extremity weakness secondary to cervical spine stenosis -His last admission for right upper extremity weakness at that time MRI was done which showed chronic small vessel ischemic disease as well as cavitary infarction in the white matter that are old. So patient did not had any makenna CVA -He is on Aggrenox Chronic hepatitis C Hypertension -Patient's medications were titrated during his last admission and hydralazine discontinued however patient is still taking that prescription when I reviewed his medications. He is also taking Imdur 30 mg daily -No clonidine as needed On discharge make sure to advise the patient not to take the hydralazine and clonidine was prescribed as needed. He would probably benefit with CC anju for rate control .
[2020-05-06] MEDS ORDERED: Atorvastatin Calcium 40 MG TAB PO SCH (21:00)
[2020-05-06] MEDS ORDERED: Enoxaparin Sodium 40 MG/0.4 ML SYRINGE SC SCH (21:00)
[2020-05-06] MEDS: Apixaban 5 MG TAB PO SCH (21:27)
--- NOTE | 2020-05-06 22:50 | CON ---
DATE OF CONSULTATION: HISTORY: Mr. Burrows is a 54-year-old gentleman who had the sudden onset of feeling his heart racing, "going crazy" at home, felt chest discomfort with that. He was given medicines to slow the rate, but despite that the heart rate was 160 beats per minute on the initial EKG here. The patient did not have much improvement in his heart rate with large doses of Cardizem, ultimately converted to sinus rhythm today. Cardizem was somewhat helpful, but still was tachycardic despite large doses of intravenous Cardizem. PAST MEDICAL HISTORY: 1. History of stroke in the past. 2. History of hypertension. SOCIAL HISTORY: He quit smoking, but resumed smoking. MEDICATIONS: At home prior to admission, he was taking 1. Aggrenox. 2. Clonidine. 3. Isosorbide. 4. Atorvastatin. 5. Hydralazine. ALLERGIES: AMLODIPINE AND LISINOPRIL. REVIEW OF SYSTEMS: CONSTITUTIONAL: No significant weight gain or loss. VISION: No changes. HEARING: No changes. PULMONARY: No cough or wheezing. GASTROINTESTINAL: No nausea, vomiting, diarrhea. SKIN: No rashes. NEUROLOGIC: No unilateral weakness or numbness. PSYCHIATRIC: No unusual depression or anxiety. PHYSICAL EXAMINATION: GENERAL: This is a pleasant gentleman, in no distress. VITAL SIGNS: Blood pressure is high 172/97, pulse 70. LUNGS: Clear. CARDIAC: Normal S1, normal S2. ABDOMEN: Soft, nontender. EXTREMITIES: No edema. IMAGING: EKG: Atrial fibrillation with a rapid rate with some ST depression when he was going very fast and now he is in normal sinus rhythm. Heart rate was 162 beats per minute, some ST-depression in V4, V5, V6. T-wave inversions in the inferior leads. ASSESSMENT: 1. Atrial fibrillation with a rapid ventricular response associated with angina. 2. Non-ST elevation myocardial infarction type 2 (demand ischemia). Peak troponin 0.16. 3. Smoking. 4. Hypertension. 5. Previous stroke. PLAN: 1. Start apixaban. 2. Beta blockers. 3. We will try to get Multaq. Hopefully his coverage plan will pay for Multaq at [employer]. Otherwise, beta blockers could be used in conjunction with potentially flecainide but unfortunately that really would not help control his rate much in terms of the flecainide. We will hopefully get Multaq. I am reluctant to use amiodarone long-term in this gentleman at age 54. He probably could be released home tomorrow. Job ID: [id number]
[2020-05-07 05:00] LABS: #Lymphocytes 2.4 thou/uL (1.20-3.40); #Monocytes 1.2 thou/uL (0.11-0.59); #Neutrophils 9.7 thou/uL (1.40-6.50); %Basophils 0.3 % (0.0-1.0); %Eosinophils 0.1 % (0.0-10.0); %Lymphocytes 17.8 % (21.0-51.0); %Monocytes 8.8 % (0.0-10.0); Hemoglobin 15.1 g/dL (14.0-18.0); Mean Corpuscular HGB CONC 33.5 g/dL (32.0-36.0); Mean Corpuscular Hemoglobin 31.8 pg (27.0-31.0); Mean Platelet Volume 10.2 fL (7.4-10.4); Platelet Count 183 thou/uL (130-400); RBC Distribution Width 11.6 % (11.5-14.5); Red Blood Cell (RBC) Count 4.76 mill/uL (4.70-6.10); White Blood Cell (WBC) Count 13.3 thou/uL (4.8-10.8)
[2020-05-07 05:05] LABS: Anion Gap 14 mmol/L (10-20); BUN (Urea Nitrogen) 13 mg/dL (8.4-25.7); Calc. Creatinine Clearance 127 mL/min (70-130); Carbon Dioxide 23 mmol/L (22-29); Chloride 105 mmol/L (98-107); Glucose 112 mg/dL (70-105); Potassium 3.9 mmol/L (3.5-5.1); Sodium 138 mmol/L (136-145)
[2020-05-07] MEDS ORDERED: Magnesium 2 GM/50 ML 2 GM in Premix Bag 1 BAG IVPB SCH (06:30)
[2020-05-07 07:59] VITALS: BP 171/92; TEMP 97.8
[2020-05-07] MEDS ORDERED: Dronedarone HCl 400 MG TAB PO SCH (08:00)
[2020-05-07] MEDS: Famotidine 20 MG TAB PO SCH (08:25)
[2020-05-07] MEDS: Apixaban 5 MG TAB PO SCH (08:25)
[2020-05-07] MEDS ORDERED: Aspirin 81 mg Enteric Coated Tablet PO SCH (09:00)
[2020-05-07] MEDS ORDERED: hydrALAZINE 25 MG TAB PO SCH (09:00)
[2020-05-07] MEDS ORDERED: Azithromycin 250 MG TAB PO SCH (09:00)
--- NOTE | 2020-05-07 10:02 | PRG ---
DATE OF SERVICE: 05/07/2020 SUBJECTIVE: Mr. Burrows is resting comfortably. He is maintaining sinus rhythm. He feels well. OBJECTIVE: VITAL SIGNS: His blood pressure is 170/90, pulse is 60 and sinus. LUNGS: Clear. CARDIAC: Normal S1, normal S2. There is no murmur, rub, or gallop. ABDOMEN: Soft, nontender. EXTREMITIES: There is no edema. ASSESSMENT: 1. Atrial fibrillation with rapid ventricular response, now in sinus rhythm. 2. History of previous strokes, thought to be likely to be small-vessel disease. 3. Hypercholesterolemia. 4. History of smoking. 5. Hypertension. PLAN: 1. He is on metoprolol succinate 50 mg a day. We are starting that this morning. 2. Eliquis 5 mg twice a day. 3. Multaq 400 mg twice a day. Hopefully, his insurance will be able to pay for that. If unable to do that, we may consider flecainide 50 mg twice a day. 4. Aspirin 81 mg a day. 5. Resume hydralazine 50 mg three times a day that is what he is taking at home. 6. See us in the office in 3 to 4 weeks. Bring all medicines. ADDENDUM: The patient listed either adverse side effect or allergy to amlodipine and lisinopril. Job ID: [id number]
--- NOTE | 2020-05-07 10:05 | PDOC.DS.DS ---
Provider - Provider Date of Admission: 05/06/20 00:25 Date of Discharge: 05/07/20 Admitting Provider: Trevor Hart MD Consultations: Cardiology (Dr. Recio) Primary Care Physician: KAREL BUSCH Course - Hospital Course Hospital Course: Discharge diagnosis: 1. A. fib with RVR 2. COPD exacerbation 3. Abnormal LFTs 4. COVID-19 PCR test negative 5. Influenza test negative Hospital course: Patient is a pleasant 49-year-old gentleman who was admitted to the hospital on May 06, 2020 for COPD exacerbation and atrial fibrillation with rapid ventricular response. He was treated with Cardizem drip. Was seen by cardiology service. He was started on Multaq. He converted to normal sinus rhythm. He improved clinically and is being discharged home in a stable condition. Many thanks for allowing me to participate in your patient's care. Please feel free to contact me with any questions or concerns. Discharge destination: Home Total amount of time spent coordinating this discharge: 32 minutes Resuscitation Status: 05/06/20 05:40 Resuscitation Status Routine Resuscitation Status: FULL: Full Resuscitation - Labs Lab Results: 05/07/20 04:17 05/07/20 04:17 Abnormal Lab Results - Last 48 hrs 05/05/20 22:14: Troponin I 0.030 H 05/05/20 22:14: MCH 32.0 H, Lymphocytes % 20.1 L, Monocytes % 10.5 H, Monocytes # 1.0 H 05/05/20 22:14: AST 53 H, ALT 95 H, Serum Total Protein 8.8 H, Globulin 4.8 H, Albumin/Globulin Ratio 0.8 L 05/06/20 01:11: Troponin I 0.102 H 05/06/20 04:31: Troponin I 0.161 H 05/07/20 04:17: WBC 13.3 H, MCH 31.8 H, Lymphocytes % 17.8 L, Neutrophils # 9.7 H, Monocytes # 1.2 H - Physical Exam Vitals: Vital Signs (12 hours) Temp Pulse Resp BP Pulse Ox 05/07/20 09:46 57 L 05/07/20 07:47 97.8 F 57 L 16 171/92 H 94 L 05/07/20 04:23 97.6 F 57 L 18 134/78 95 Weight Weight 184 lb 8 oz Most Recent Monitor Data Heart Rate from ECG 68 NIBP 148/82 NIBP BP-Mean 104 Respiration from ECG 16 SpO2 97 Physical Exam: The patient was seen and examined on the day of discharge. Patient denies chest pain or shortness of breath. Vital signs are stable. S1 and S2 are heard. Lungs are clear to auscultation bilaterally. Plan - Discharge Medications Prescriptions: Albuterol Sulfate [Ventolin HFA] 1 puff INH Q4HR PRN #1 inh PRN Reason: Sob &/Or Wheezing Apixaban [Eliquis] 5 mg PO BID #60 tab Dronedarone HCl [Multaq] 400 mg PO BID-WM #60 tab predniSONE 20 mg PO ASDIR #12 tab Metoprolol Succinate [Toprol XL] 50 mg PO 0600 #30 tab Doxycycline [Vibramycin] 100 mg PO BID #14 cap Home Medications: Medication Instructions Recorded Confirmed Type cloNIDine [Catapres] 0.1 mg PO PRN PRN 01/26/20 05/06/20 History Atorvastatin Calcium [Lipitor] 40 mg PO HS 30 Days #30 tab 01/27/20 05/06/20 Rx Isosorbide Mononitrate [Imdur ER] 30 mg PO DAILY 30 Days #30 tab 01/27/20 05/06/20 Rx hydrALAZINE [Apresoline] 50 mg PO TID 05/06/20 05/06/20 History Albuterol Sulfate [Ventolin HFA] 1 puff INH Q4HR PRN #1 inh 05/07/20 Rx Apixaban [Eliquis] 5 mg PO BID #60 tab 05/07/20 Rx Aspirin [Ecotrin Low Strength] 81 mg PO DAILY tab 05/07/20 Rx Doxycycline [Vibramycin] 100 mg PO BID #14 cap 05/07/20 Rx Dronedarone HCl [Multaq] 400 mg PO BID-WM #60 tab 05/07/20 Rx Metoprolol Succinate [Toprol XL] 50 mg PO 0600 #30 tab 05/07/20 Rx predniSONE 20 mg PO ASDIR #12 tab 05/07/20 Rx Allergies: amlodipine Allergy (Verified 05/06/20 09:45) SWELLING lisinopril Allergy (Verified 05/06/20 09:45) has coughing - Discharge Instructions Activity:: Activity as Tolerated Nourishment:: Heart Healthy Diet - Follow up Plan Referrals: KAREL BUSCH [Primary Care Provider] - 3 Days Sylvia Perales NP [Allied Health Professional] - 3-4 Weeks (Please call office to schedule a follow up appointment.) Disposition: HOME Quality - Care Measures CORE MEASURES:: N/A
[2020-05-07] MEDS: Ipratropium Bromide 2.5 ml Neb NEB SCH (10:47)
[2020-05-07] MEDS: Mometasone 100 MCG/Formoterol 5 MCG 120 PUFF INHALER INH SCH (10:51)
--- NOTE | 2020-05-08 11:21 | EKG ---
Test Reason : Blood Pressure : / mmHG Vent. Rate : 162 BPM Atrial Rate : 208 BPM P-R Int : 000 ms QRS Dur : 102 ms QT Int : 304 ms P-R-T Axes : 000 075 -58 degrees QTc Int : 499 ms Atrial fibrillation with rapid ventricular response with premature ventricular or aberrantly conducte d complexes Cannot rule out Inferior infarct , age undetermined Abnormal ECG Confirmed by DWAYNE BURNS ([id number]), society editor SHAMA SEVERINO ([id number]) on 05/08/2020 11:20:41 AM Referred By: Confirmed By:DWAYNE BURNS
== END 2020-05-07 13:10 | disposition home or self-care (01) | DRG 190 ==
LOC: ERS 21:39 → ERHOLD 05-06 00:25 → 2NO 05-06 17:41
PROVIDERS: ADMIT Internal Medicine; ATTEND Internal Medicine
DX: J44.1 Chronic obstructive pulmonary disease with (acute) exacerbation (principal); I21.A1 Myocardial infarction type 2; I48.91 Unspecified atrial fibrillation; Z20.822 Contact with and (suspected) exposure to COVID-19; I10 Essential (primary) hypertension; E78.00 Pure hypercholesterolemia, unspecified; F17.210 Nicotine dependence, cigarettes, uncomplicated; E78.5 Hyperlipidemia, unspecified; B18.2 Chronic viral hepatitis C; M48.02 Spinal stenosis, cervical region; I25.2 Old myocardial infarction; Z79.899 Other long term (current) drug therapy; Z88.8 Allergy status to other drugs, medicaments and biological substances; Z90.49 Acquired absence of other specified parts of digestive tract
CPT/HCPCS: 0240U; 36415; 71045; 80048; 80053; 82553; 83735; 84443; 84484; 85025; 85379; 93005; 93010; 94640; J0456; J1650; J2920; J2930; J3475; J7050

== ENCOUNTER 2020-05-24 09:50 | Emergency (ER) | payer OTHER ==
--- NOTE | 2020-05-24 10:50 | RAD ---
CHEST 1 VIEW: Date: 05/24/2020 HISTORY: Weakness. COMPARISON: Radiograph from 05/05/2020. FINDINGS: Heart size mildly enlarged. Mild pulmonary venous congestion. No pneumothorax or effusion. No conflue nt air space consolidation. IMPRESSION: Mild cardiomegaly and pulmonary venous congestion. No evidence for pneumonia. POS: OFF
[2020-05-24 11:02] LABS: Bilirubin Negative (Negative); Blood, Urine Negative (Negative); Glucose, Urine (Dipstick) Negative (Negative); Ketone, Urine Negative (Negative); Leukocyte Negative (Negative); Nitrite Negative (Negative); Protein, Urine (Dipstick) Negative (Neg-Trace); Specific Gravity, Urine 1.015 (1.005-1.030); Urobilinogen 0.2 mg/dL (Less than 2); pH, Urine 7.5 (5.0-9.0)
[2020-05-24 11:03] LABS: Clarity Clear (Clear)
[2020-05-24 11:05] LABS: #Basophils 0.1 thou/uL (0.0-0.2); #Eosinphils 0.1 thou/uL (0.0-0.7); #Neutrophils 5.8 thou/uL (1.40-6.50); %Eosinophils 0.8 % (0.0-10.0); %Lymphocytes 22.5 % (21.0-51.0); %Monocytes 11.2 % (0.0-10.0); %Neutrophils 64.5 % (42.0-75.0); Hemoglobin 16.3 g/dL (14.0-18.0); Mean Corpuscular HGB CONC 33.2 g/dL (32.0-36.0); Mean Corpuscular Hemoglobin 31.6 pg (27.0-31.0); Mean Platelet Volume 9.6 fL (7.4-10.4); Platelet Count 206 thou/uL (130-400); RBC Distribution Width 11.5 % (11.5-14.5); Red Blood Cell (RBC) Count 5.15 mill/uL (4.70-6.10)
--- NOTE | 2020-05-24 11:07 | CT ---
CT BRAIN WITHOUT CONTRAST: HISTORY:Weakness, numbness and tingling in the hands COMPARISON:01/26/2020 FINDINGS: There are foci of decreased attenuation in the periventricular white matter, consistent with chronic small vessel ischemic disease. Old lacunar infarcts thalami and basal ganglia are present. No evidence of acute infarct, hemorrhage, midline shift or abnormal extra-axial fluid collections is seen. The ventricular size is appropriate and the basilar cisterns are patent. The bony calvarium is intact. The visualized paranasal sinuses and mastoid air cells are well aerated. IMPRESSION: No CT evidence of acute intracranial process.
[2020-05-24 11:34] LABS: ALT (SGPT) 120 U/L (8-55); AST (SGOT) 71 U/L (5-34); Albumin 3.7 g/dL (3.5-5.0); Alkaline Phosphatase 57 U/L (40-110); Anion Gap 12 mmol/L (10-20); BUN (Urea Nitrogen) 9 mg/dL (8.4-25.7); Bilirubin, Total 0.8 mg/dL (0.2-1.2); CK (CPK) 28 U/L (30-200); Calc. Creatinine Clearance 0 mL/min (70-130); Calcium 9.1 mg/dL (7.8-10.44); Carbon Dioxide 25 mmol/L (22-29); Chloride 102 mmol/L (98-107); Globulin 4.4 g/dL (2.4-3.5); Glucose 86 mg/dL (70-105); Magnesium 2.2 mg/dL (1.6-2.6); Potassium 4.2 mmol/L (3.5-5.1); Protein, Total 8.1 g/dL (6.0-8.3); Sodium 135 mmol/L (136-145)
== END 2020-05-24 12:40 | disposition home or self-care (01) ==
LOC: ERS 09:50
DX: R00.1 Bradycardia, unspecified (principal); R53.1 Weakness; I10 Essential (primary) hypertension; I25.2 Old myocardial infarction; F17.210 Nicotine dependence, cigarettes, uncomplicated; Z79.899 Other long term (current) drug therapy
CPT/HCPCS: 36415; 70450; 71045; 80053; 81003; 82550; 83735; 84484; 85025; 93005

== ENCOUNTER 2020-07-16 10:09 | Outpatient (CLI) | payer OTHER ==
[2020-07-16 11:53] LABS: Hemoglobin 16.2 g/dL (13.5-17.5); Mean Corpuscular HGB CONC 33.8 g/dL (32.0-36.0); Mean Corpuscular Hemoglobin 30.6 pg (27.0-33.0); Mean Corpuscular Volume 90.7 fl (81.2-95.1); Mean Platelet Volume 12.1 fl (7.4-10.4); Platelet Count 189 10x3/uL (150-450); RBC Distribution Width 12.5 % (11.5-14.5); Red Blood Cell (RBC) Count 5.29 10x6/uL (4.32-5.72); White Blood Cell (WBC) Count 6.8 10x3/uL (3.5-10.5)
[2020-07-16 12:12] LABS: Anion Gap 12 mmol/L (10-20); BUN (Urea Nitrogen) 9 mg/dL (8.4-25.7); Calc. Creatinine Clearance 0 mL/min (70-130); Calcium 9.7 mg/dL (7.8-10.44); Carbon Dioxide 27 mmol/L (22-29); Chloride 102 mmol/L (98-107); Glucose 93 mg/dL (70-105); Sodium 137 mmol/L (136-145)
[2020-07-16 18:35] LABS: SARS-CoV-2 PCR by NAA Not Detected (NotDetected)
== END 2020-07-16 10:10 | disposition home or self-care (01) ==
LOC: LABBT 10:09
PROVIDERS: ATTEND Neurological Surgery
DX: Z01.812 Encounter for preprocedural laboratory examination (principal); G56.02 Carpal tunnel syndrome, left upper limb; Z20.822 Contact with and (suspected) exposure to COVID-19
CPT/HCPCS: 80048; 85027; 87635; U0003; U0005

== ENCOUNTER 2020-07-23 09:55 | Outpatient (CLI) | payer OTHER ==
[2020-07-24 01:24] LABS: SARS-CoV-2 PCR by NAA Not Detected (NotDetected)
== END 2020-07-23 09:56 | disposition home or self-care (01) ==
LOC: LABBT 09:55
PROVIDERS: ATTEND Neurological Surgery
DX: Z01.812 Encounter for preprocedural laboratory examination (principal); G56.02 Carpal tunnel syndrome, left upper limb; Z20.822 Contact with and (suspected) exposure to COVID-19
CPT/HCPCS: 87635; U0003; U0005

== ENCOUNTER 2020-07-26 08:53 | Day surgery (SDC) | payer OTHER ==
[2020-07-20 11:23] VITALS: BMI 27.0
[2020-07-26] MEDS ORDERED: Lidocaine 1% w/Epinephrine 1:100K 20 ML VIAL ONE (09:56)
[2020-07-26] MEDS ORDERED: Fentanyl 100 MCG/2 ML VIAL ONE (11:09)
[2020-07-26] MEDS ORDERED: Dexamethasone 20 MG/5 ML VIAL ONE (11:30)
[2020-07-26] MEDS ORDERED: PROPOFOL 200 MG/20 ML VIAL ONE (11:30)
[2020-07-26] MEDS ORDERED: Ketorolac Tromethamine 30 MG/ML VIAL ONE (11:30)
[2020-07-26] MEDS ORDERED: Lidocaine 1% PF 5 ML VIAL ONE (11:30)
[2020-07-26] MEDS ORDERED: Ondansetron PF 4 MG/2 ML Vial ONE (11:30)
== END 2020-07-26 14:05 | disposition home or self-care (01) ==
LOC: SDC 08:53
PROVIDERS: ATTEND Neurological Surgery
PROC: 01N50ZZ Release Median Nerve, Open Approach (ICD-10-PCS; principal; 2020-07-26)
DX: G56.02 Carpal tunnel syndrome, left upper limb (principal); I10 Essential (primary) hypertension; Z79.899 Other long term (current) drug therapy; Z86.73 Personal history of transient ischemic attack (TIA), and cerebral infarction without residual deficits; Z88.8 Allergy status to other drugs, medicaments and biological substances
CPT/HCPCS: J0690; J1100; J1885; J2405; J2704; J3010

== ENCOUNTER 2020-08-18 10:30 | Outpatient (CLI) | payer OTHER ==
[2020-08-18 11:59] LABS: INR-International Normal Ratio 1.1; PTT 33.9 sec (22.0-33.0)
[2020-08-18 12:07] LABS: Anion Gap 13 mmol/L (10-20); BUN (Urea Nitrogen) 6 mg/dL (8.4-25.7); Calc. Creatinine Clearance 0 mL/min (70-130); Calcium 9.8 mg/dL (7.8-10.44); Carbon Dioxide 25 mmol/L (22-29); Chloride 103 mmol/L (98-107); Glucose 88 mg/dL (70-105); Potassium 4.3 mmol/L (3.5-5.1); Sodium 137 mmol/L (136-145)
[2020-08-18 12:49] LABS: Red Blood Cell (RBC) Count 5.28 10x6/uL (4.32-5.72); White Blood Cell (WBC) Count 5.6 10x3/uL (3.5-10.5)
[2020-08-18 12:50] LABS: Hemoglobin 16.4 g/dL (13.5-17.5); Mean Corpuscular Hemoglobin 31.1 pg (27.0-33.0); Mean Corpuscular Volume 88.6 fl (81.2-95.1); Platelet Count 196 10x3/uL (150-450); RBC Distribution Width 12.9 % (11.5-14.5)
[2020-08-18 18:21] LABS: SARS-CoV-2 PCR by NAA Not Detected (NotDetected)
== END 2020-08-18 10:31 | disposition home or self-care (01) ==
LOC: LABBT 10:30
PROVIDERS: ATTEND Internal Medicine Cardiovascular Disease
DX: Z01.818 Encounter for other preprocedural examination (principal); Z20.822 Contact with and (suspected) exposure to COVID-19; I48.91 Unspecified atrial fibrillation
CPT/HCPCS: 80048; 85027; 85610; 85730; 87635; U0003; U0005

== ENCOUNTER 2020-08-23 08:19 | Observation (INO) | payer OTHER ==
[2020-08-23] MEDS ORDERED: Fentanyl 100 MCG/2 ML VIAL ONE ×3 (12:58→16:38)
[2020-08-23] MEDS ORDERED: ePHEDrine Sulfate 50 MG/10 ML VIAL ONE (13:00)
[2020-08-23] MEDS ORDERED: Ondansetron PF 4 MG/2 ML Vial ONE (13:00)
[2020-08-23] MEDS ORDERED: Rocuronium Bromide 10 MG/ML (10ML VIAL) ONE (13:00)
[2020-08-23] MEDS ORDERED: Glycopyrrolate 0.2 MG/ML 5 ML SYRINGE ONE (13:00)
[2020-08-23] MEDS ORDERED: Dexamethasone 20 MG/5 ML VIAL ONE (13:00)
[2020-08-23] MEDS ORDERED: Lidocaine 1% PF 5 ML VIAL ONE (13:00)
[2020-08-23] MEDS ORDERED: PHENYLEPHRINE-NS 100 MCG/ML 10 ML SYRINGE ONE (13:00)
[2020-08-23] MEDS ORDERED: PROPOFOL 200 MG/20 ML VIAL ONE (13:00)
[2020-08-23] MEDS ORDERED: Heparin 25,000 units/D5W 500 ML ONE (14:09)
[2020-08-23] MEDS ORDERED: Heparin 10,000 UNITS/ 10 ML VIAL ONE (14:09)
[2020-08-23] MEDS ORDERED: Phenylephrine 10 MG/ML VIAL ONE (14:10)
[2020-08-23] MEDS ORDERED: Isoproterenol 0.2 MG/1 ML AMP ONE (15:05)
[2020-08-23] MEDS ORDERED: Promethazine HCl 25 MG/ML VIAL IM PRN (16:09)
[2020-08-23] MEDS ORDERED: Promethazine HCl 25 MG/ML VIAL SLOW IVP PRN (16:09)
[2020-08-23] MEDS ORDERED: Meperidine HCl/PF 25 MG/ML VIAL SLOW IVP PRN (16:09)
[2020-08-23] MEDS ORDERED: Ondansetron HCl/PF 4 MG/2 ML Vial IVP PRN (16:09)
[2020-08-23] MEDS ORDERED: Ketorolac Tromethamine 30 MG/ML VIAL IVP PRN (16:40)
[2020-08-23] MEDS ORDERED: Acetaminophen/Codeine 30-300mg Tablet PO PRN ×2 (16:45)
[2020-08-23 18:15] VITALS: BMI 27.5
[2020-08-23] MEDS: hydrALAZINE 25 MG TAB PO SCH (20:41)
[2020-08-23] MEDS: Apixaban 5 MG TAB PO SCH (20:41)
[2020-08-23] MEDS ORDERED: Atorvastatin Calcium 40 MG TAB PO SCH (21:00)
[2020-08-24] MEDS ORDERED: Protamine Sulfate 50 MG/5 ML VIAL ONE (06:19)
[2020-08-24 08:14] VITALS: TEMP 97.9
[2020-08-24] MEDS ORDERED: Aspirin 81 mg Enteric Coated Tablet PO SCH (09:00)
[2020-08-24] MEDS: hydrALAZINE 25 MG TAB PO SCH (09:22)
[2020-08-24] MEDS: Apixaban 5 MG TAB PO SCH (09:22)
[2020-08-24 09:25] VITALS: BP 146/77
== END 2020-08-24 11:15 | disposition home or self-care (01) ==
LOC: SDC 08:19 → 2SW 10:54
PROVIDERS: ADMIT Internal Medicine Cardiovascular Disease; ATTEND Internal Medicine Cardiovascular Disease
PROC: 02583ZZ Destruction of Conduction Mechanism, Percutaneous Approach (ICD-10-PCS; principal; 2020-08-23)
PROC: 02K83ZZ Map Conduction Mechanism, Percutaneous Approach (ICD-10-PCS; 2020-08-23)
PROC: 4A023FZ Measurement of Cardiac Rhythm, Percutaneous Approach (ICD-10-PCS; 2020-08-23)
PROC: 4A0234Z Measurement of Cardiac Electrical Activity, Percutaneous Approach (ICD-10-PCS; 2020-08-23)
DX: I48.0 Paroxysmal atrial fibrillation (principal); I49.5 Sick sinus syndrome; I25.2 Old myocardial infarction; I25.10 Atherosclerotic heart disease of native coronary artery without angina pectoris; I10 Essential (primary) hypertension; F17.200 Nicotine dependence, unspecified, uncomplicated; Z86.73 Personal history of transient ischemic attack (TIA), and cerebral infarction without residual deficits; Z79.01 Long term (current) use of anticoagulants; Z79.82 Long term (current) use of aspirin; Z79.899 Other long term (current) drug therapy; Z88.8 Allergy status to other drugs, medicaments and biological substances; Z98.890 Other specified postprocedural states
CPT/HCPCS: 76942; 85347; 93005; 93010; 93613; 93622; 93623; 93655; 93656; 93662; C1732; G0378; J1100; J1644; J2370; J2405; J2704; J2720; J3010

== ENCOUNTER 2020-09-15 13:24 | Observation (INO) | payer OTHER ==
[2020-09-15 17:41] LABS: Troponin I Less than 0.010 ng/mL (< 0.028)
[2020-09-15 18:06] VITALS: BMI 27.3
[2020-09-15] MEDS: HYDROcodone/Acetaminophen 5/325 mg Tablet PO PRN (20:35)
[2020-09-15] MEDS: Apixaban 5 MG TAB PO SCH (20:36)
[2020-09-15] MEDS: Atorvastatin Calcium 40 MG TAB PO SCH (20:36)
[2020-09-15] MEDS: hydrALAZINE 25 MG TAB PO SCH (20:36)
[2020-09-15 20:37] LABS: Troponin I 0.031 ng/mL (< 0.028)
[2020-09-16 00:04] LABS: Troponin I 0.017 ng/mL (< 0.028)
[2020-09-16] MEDS: HYDROcodone/Acetaminophen 5/325 mg Tablet PO PRN ×2 (05:31→16:06)
[2020-09-16] MEDS: Aspirin 81 mg Enteric Coated Tablet PO SCH (08:12)
[2020-09-16] MEDS: hydrALAZINE 25 MG TAB PO SCH ×3 (08:12→21:22)
[2020-09-16] MEDS: Apixaban 5 MG TAB PO SCH ×2 (08:12→21:23)
[2020-09-16] MEDS ORDERED: Famotidine 20 MG TAB PO SCH (10:15)
[2020-09-16] MEDS ORDERED: Colchicine 0.6 MG TAB PO SCH ×2 (10:15→21:00)
[2020-09-16] MEDS ORDERED: Ketorolac Tromethamine 30 MG/ML VIAL IVP SCH (10:15)
[2020-09-16] MEDS: Ketorolac Tromethamine 30 MG/ML VIAL IVP SCH ×2 (17:51→23:19)
[2020-09-16] MEDS: Atorvastatin Calcium 40 MG TAB PO SCH (21:21)
[2020-09-16] MEDS: Famotidine 20 MG TAB PO SCH (21:22)
[2020-09-17 05:07] LABS: #Basophils 0.1 thou/uL (0.0-0.2); #Eosinphils 0.1 thou/uL (0.0-0.7); #Monocytes 0.6 thou/uL (0.11-0.59); #Neutrophils 2.3 thou/uL (1.40-6.50); %Basophils 1.1 % (0.0-1.0); %Eosinophils 1.7 % (0.0-10.0); %Monocytes 11.6 % (0.0-10.0); %Neutrophils 45.6 % (42.0-75.0); Hemoglobin 15.3 g/dL (14.0-18.0); Mean Corpuscular Hemoglobin 30.7 pg (27.0-31.0); Mean Corpuscular Volume 93.2 fL (78.0-98.0); Mean Platelet Volume 9.3 fL (7.4-10.4); Platelet Count 154 thou/uL (130-400); RBC Distribution Width 11.9 % (11.5-14.5); Red Blood Cell (RBC) Count 4.99 mill/uL (4.70-6.10)
[2020-09-17 05:25] LABS: Anion Gap 11 mmol/L (10-20); BUN (Urea Nitrogen) 13 mg/dL (8.4-25.7); Calc. Creatinine Clearance 130 mL/min (70-130); Calcium 8.9 mg/dL (7.8-10.44); Carbon Dioxide 25 mmol/L (22-29); Chloride 104 mmol/L (98-107); Glucose 94 mg/dL (70-105); Potassium 4.1 mmol/L (3.5-5.1); Sodium 136 mmol/L (136-145)
[2020-09-17] MEDS: Ketorolac Tromethamine 30 MG/ML VIAL IVP SCH ×3 (05:46→12:38)
[2020-09-17] MEDS: Aspirin 81 mg Enteric Coated Tablet PO SCH (08:19)
[2020-09-17] MEDS: Famotidine 20 MG TAB PO SCH (08:19)
[2020-09-17] MEDS: hydrALAZINE 25 MG TAB PO SCH ×2 (08:19→15:51)
[2020-09-17] MEDS ORDERED: Regadenoson 0.4 MG/5 ML SYRINGE ONE (09:23)
[2020-09-17 12:34] VITALS: TEMP 97.8
[2020-09-17] MEDS: Apixaban 5 MG TAB PO SCH (12:38)
[2020-09-17 16:50] VITALS: BP 174/95
[2020-09-17] MEDS ORDERED: Colchicine 0.3 MG TAB PO SCH (21:00)
== END 2020-09-17 16:55 | disposition home or self-care (01) ==
LOC: ERS 13:24 → 2SW 14:24
PROVIDERS: ADMIT Internal Medicine; ATTEND Internal Medicine
DX: R07.89 Other chest pain (principal); R06.02 Shortness of breath; I25.10 Atherosclerotic heart disease of native coronary artery without angina pectoris; I48.0 Paroxysmal atrial fibrillation; I10 Essential (primary) hypertension; I49.5 Sick sinus syndrome; E78.5 Hyperlipidemia, unspecified; K21.9 Gastro-esophageal reflux disease without esophagitis; E78.00 Pure hypercholesterolemia, unspecified; F17.210 Nicotine dependence, cigarettes, uncomplicated; Z79.899 Other long term (current) drug therapy; Z88.8 Allergy status to other drugs, medicaments and biological substances
CPT/HCPCS: 36415; 78452; 80048; 85025; 93005; 93017; 93306; 96374; 96376; A9500; G0378; J1885; J2785

== ENCOUNTER 2020-09-25 14:59 | Observation (INO) | payer OTHER ==
[2020-09-25 15:45] LABS: #Basophils 0.1 thou/uL (0.0-0.2); #Eosinphils 0.1 thou/uL (0.0-0.7); #Lymphocytes 2.1 thou/uL (1.20-3.40); #Monocytes 0.6 thou/uL (0.11-0.59); #Neutrophils 3.1 thou/uL (1.40-6.50); %Basophils 1.1 % (0.0-1.0); %Eosinophils 1.1 % (0.0-10.0); %Lymphocytes 35.2 % (21.0-51.0); %Monocytes 9.5 % (0.0-10.0); Hemoglobin 15.6 g/dL (14.0-18.0); Mean Corpuscular HGB CONC 35.7 g/dL (32.0-36.0); Mean Corpuscular Hemoglobin 33.2 pg (27.0-31.0); Mean Platelet Volume 9.7 fL (7.4-10.4); Platelet Count 155 thou/uL (130-400); RBC Distribution Width 11.7 % (11.5-14.5); Red Blood Cell (RBC) Count 4.71 mill/uL (4.70-6.10); White Blood Cell (WBC) Count 5.8 thou/uL (4.8-10.8)
[2020-09-25 16:06] LABS: ALT (SGPT) 157 U/L (8-55); AST (SGOT) 114 U/L (5-34); Albumin 3.6 g/dL (3.5-5.0); Alkaline Phosphatase 60 U/L (40-110); Anion Gap 11 mmol/L (10-20); BUN (Urea Nitrogen) 8 mg/dL (8.4-25.7); Bilirubin, Total 0.8 mg/dL (0.2-1.2); Calc. Creatinine Clearance 0 mL/min (70-130); Calcium 9.5 mg/dL (7.8-10.44); Carbon Dioxide 23 mmol/L (22-29); Chloride 104 mmol/L (98-107); Glucose 86 mg/dL (70-105); Potassium 3.4 mmol/L (3.5-5.1); Protein, Total 7.6 g/dL (6.0-8.3); Sodium 135 mmol/L (136-145)
[2020-09-25] MEDS ORDERED: Nitroglycerin 2% Ointment 1 INCH/1 GM Packet ONE (17:53)
[2020-09-25] MEDS ORDERED: Nitroglycerin 0.4 MG TAB 1 EACH ONE (17:53)
[2020-09-25] MEDS ORDERED: Ondansetron PF 4 MG/2 ML Vial IVP PRN (18:47)
[2020-09-25] MEDS ORDERED: HYDROcodone/Acetaminophen 5/325 mg Tablet PO PRN (18:47)
[2020-09-25] MEDS ORDERED: Acetaminophen 325 MG TAB PO PRN (18:47)
[2020-09-25] MEDS ORDERED: Nicotine 21 MG PATCH TD SCH (19:00)
[2020-09-25] MEDS ORDERED: Morphine 4 MG/ML VIAL SLOW IVP PRN (19:01)
[2020-09-25 19:13] LABS: Troponin I Less than 0.010 ng/mL (< 0.028)
[2020-09-25] MEDS ORDERED: Sucralfate 1 GM TAB PO SCH (21:00)
[2020-09-25 21:13] VITALS: BMI 26.4
[2020-09-25 22:05] LABS: Troponin I Less than 0.010 ng/mL (< 0.028)
[2020-09-25] MEDS: Atorvastatin Calcium 40 MG TAB PO SCH (22:30)
[2020-09-25] MEDS: Apixaban 5 MG TAB PO SCH (22:30)
[2020-09-25] MEDS: hydrALAZINE 25 MG TAB PO SCH (22:30)
[2020-09-25] MEDS: Colchicine 0.3 MG TAB PO SCH (22:40)
[2020-09-25 23:31] LABS: SARS-CoV-2 PCR by NAA Not Detected (NotDetected)
[2020-09-26 05:13] LABS: #Eosinphils 0.1 thou/uL (0.0-0.7); #Lymphocytes 1.4 thou/uL (1.20-3.40); #Monocytes 0.6 thou/uL (0.11-0.59); #Neutrophils 3.2 thou/uL (1.40-6.50); %Basophils 0.6 % (0.0-1.0); %Eosinophils 1.8 % (0.0-10.0); %Lymphocytes 25.7 % (21.0-51.0); %Monocytes 11.2 % (0.0-10.0); %Neutrophils 60.6 % (42.0-75.0); Hemoglobin 15.1 g/dL (14.0-18.0); Mean Corpuscular HGB CONC 34.2 g/dL (32.0-36.0); Mean Corpuscular Hemoglobin 31.6 pg (27.0-31.0); Mean Corpuscular Volume 92.5 fL (78.0-98.0); Mean Platelet Volume 9.5 fL (7.4-10.4); Platelet Count 142 thou/uL (130-400); RBC Distribution Width 11.8 % (11.5-14.5); Red Blood Cell (RBC) Count 4.79 mill/uL (4.70-6.10); White Blood Cell (WBC) Count 5.3 thou/uL (4.8-10.8)
[2020-09-26 05:42] LABS: Anion Gap 12 mmol/L (10-20); BUN (Urea Nitrogen) 10 mg/dL (8.4-25.7); Calc. Creatinine Clearance 137 mL/min (70-130); Calcium 9.1 mg/dL (7.8-10.44); Carbon Dioxide 24 mmol/L (22-29); Chloride 105 mmol/L (98-107); Glucose 102 mg/dL (70-105); Potassium 3.6 mmol/L (3.5-5.1); Sodium 137 mmol/L (136-145)
[2020-09-26] MEDS: hydrALAZINE 25 MG TAB PO SCH ×3 (08:41→21:22)
[2020-09-26] MEDS: Apixaban 5 MG TAB PO SCH ×2 (08:41→21:22)
[2020-09-26] MEDS: Aspirin Chewable 81 MG TAB PO SCH (08:41)
[2020-09-26] MEDS ORDERED: Enoxaparin Sodium 40 MG/0.4 ML SYRINGE SC SCH (09:00)
[2020-09-26] MEDS: Colchicine 0.3 MG TAB PO SCH (09:55)
[2020-09-26] MEDS: Etodolac ER 400 mg Tablet PO SCH (09:55)
[2020-09-26] MEDS: hydrALAZINE 20 MG/ML VIAL SLOW IVP PRN ×2 (15:40→23:48)
[2020-09-26] MEDS ORDERED: Amlodipine 5 MG TAB PO SCH (16:00)
[2020-09-26] MEDS ORDERED: Losartan 25 MG TAB PO SCH (16:00)
[2020-09-26] MEDS ORDERED: Nicotine 21 MG PATCH TD SCH (21:00)
[2020-09-26] MEDS: Atorvastatin Calcium 40 MG TAB PO SCH (21:21)
[2020-09-27] MEDS: hydrALAZINE 20 MG/ML VIAL SLOW IVP PRN (04:20)
[2020-09-27] MEDS: hydrALAZINE 25 MG TAB PO SCH (07:54)
[2020-09-27] MEDS: Aspirin Chewable 81 MG TAB PO SCH (07:54)
[2020-09-27] MEDS: Apixaban 5 MG TAB PO SCH (07:55)
[2020-09-27] MEDS: Etodolac ER 400 mg Tablet PO SCH (08:24)
[2020-09-27] MEDS ORDERED: Losartan 25 MG TAB PO SCH (09:00)
[2020-09-27] MEDS ORDERED: Amlodipine 5 MG TAB PO SCH (09:00)
[2020-09-27 11:29] VITALS: BP 153/93; TEMP 98.1
== END 2020-09-27 15:14 | disposition home or self-care (01) ==
LOC: ERS 14:59 → 2SW 19:07
PROVIDERS: ADMIT Hospitalist; ATTEND Internal Medicine
DX: R07.89 Other chest pain (principal); I16.0 Hypertensive urgency; M47.812 Spondylosis without myelopathy or radiculopathy, cervical region; I25.119 Atherosclerotic heart disease of native coronary artery with unspecified angina pectoris; I48.91 Unspecified atrial fibrillation; I10 Essential (primary) hypertension; F17.210 Nicotine dependence, cigarettes, uncomplicated; E78.5 Hyperlipidemia, unspecified; Z79.899 Other long term (current) drug therapy; Z20.822 Contact with and (suspected) exposure to COVID-19
CPT/HCPCS: 36415; 71045; 72141; 80048; 80053; 84484; 85025; 93005; 94760; 96374; 96375; 96376; G0378; J0360; J2270; U0003; U0005

== ENCOUNTER 2020-12-14 08:01 | Emergency (ER) | payer OTHER ==
[2020-12-14 09:16] LABS: #Eosinphils 0.1 thou/uL (0.0-0.7); #Lymphocytes 1.9 thou/uL (1.20-3.40); #Monocytes 0.7 thou/uL (0.11-0.59); #Neutrophils 4.5 thou/uL (1.40-6.50); %Basophils 0.5 % (0.0-1.0); %Lymphocytes 26.3 % (21.0-51.0); %Monocytes 9.4 % (0.0-10.0); %Neutrophils 62.9 % (42.0-75.0); Hemoglobin 16.3 g/dL (14.0-18.0); Mean Corpuscular HGB CONC 35.3 g/dL (32.0-36.0); Mean Corpuscular Volume 93.4 fL (78.0-98.0); Mean Platelet Volume 9.1 fL (7.4-10.4); Platelet Count 160 thou/uL (130-400); RBC Distribution Width 11.8 % (11.5-14.5); Red Blood Cell (RBC) Count 4.94 mill/uL (4.70-6.10); White Blood Cell (WBC) Count 7.1 thou/uL (4.8-10.8)
[2020-12-14 09:34] LABS: Anion Gap 11 mmol/L (10-20); BUN (Urea Nitrogen) 10 mg/dL (8.4-25.7); Calc. Creatinine Clearance 0 mL/min (70-130); Calcium 9.8 mg/dL (7.8-10.44); Carbon Dioxide 28 mmol/L (22-29); Chloride 100 mmol/L (98-107); Glucose 97 mg/dL (70-105); Potassium 4.3 mmol/L (3.5-5.1); Sodium 135 mmol/L (136-145)
[2020-12-14] MEDS ORDERED: Iopamidol-370 76% 500 ML 1 ML ONE (13:25)
== END 2020-12-14 11:45 | disposition home or self-care (01) ==
LOC: ERS 08:01
DX: R13.10 Dysphagia, unspecified (principal); I25.2 Old myocardial infarction; I48.91 Unspecified atrial fibrillation; E78.5 Hyperlipidemia, unspecified; M48.00 Spinal stenosis, site unspecified; F17.210 Nicotine dependence, cigarettes, uncomplicated; Z86.73 Personal history of transient ischemic attack (TIA), and cerebral infarction without residual deficits; Z79.01 Long term (current) use of anticoagulants; Z79.899 Other long term (current) drug therapy
CPT/HCPCS: 36415; 70491; 80048; 85025; Q9967

== ENCOUNTER 2021-02-16 13:50 | Inpatient (IN) | payer OTHER ==
[2021-02-16 14:32] LABS: #Eosinphils 0.1 thou/uL (0.0-0.7); #Lymphocytes 1.6 thou/uL (1.20-3.40); #Monocytes 0.4 thou/uL (0.11-0.59); #Neutrophils 2.1 thou/uL (1.40-6.50); %Eosinophils 1.5 % (0.0-10.0); %Lymphocytes 38.1 % (21.0-51.0); %Monocytes 10.1 % (0.0-10.0); %Neutrophils 49.2 % (42.0-75.0); Hemoglobin 11.6 g/dL (14.0-18.0); Mean Corpuscular HGB CONC 34.5 g/dL (32.0-36.0); Mean Corpuscular Hemoglobin 32.3 pg (27.0-31.0); Mean Corpuscular Volume 93.8 fL (78.0-98.0); Mean Platelet Volume 9.4 fL (7.4-10.4); Platelet Count 120 thou/uL (130-400); RBC Distribution Width 11.3 % (11.5-14.5); White Blood Cell (WBC) Count 4.2 thou/uL (4.8-10.8)
[2021-02-16 14:44] LABS: INR-International Normal Ratio 1.2; Prothrombin Time 15.3 sec (12.0-14.7)
[2021-02-16 14:45] LABS: PTT 39.8 sec (22.9-36.1)
[2021-02-16 14:59] LABS: ALT (SGPT) 88 U/L (8-55); AST (SGOT) 54 U/L (5-34); Albumin 3.3 g/dL (3.5-5.0); Alkaline Phosphatase 55 U/L (40-110); Anion Gap 9 mmol/L (10-20); BUN (Urea Nitrogen) 7 mg/dL (8.4-25.7); Bilirubin, Total 0.7 mg/dL (0.2-1.2); CK (CPK) 41 U/L (30-200); Calc. Creatinine Clearance 0 mL/min (70-130); Calcium 8.1 mg/dL (7.8-10.44); Carbon Dioxide 24 mmol/L (22-29); Chloride 107 mmol/L (98-107); Globulin 3.6 g/dL (2.4-3.5); Glucose 94 mg/dL (70-105); Potassium 3.2 mmol/L (3.5-5.1); Protein, Total 6.9 g/dL (6.0-8.3); Sodium 137 mmol/L (136-145)
[2021-02-16 15:19] LABS: Bilirubin Negative (Negative); Blood, Urine Negative (Negative); Clarity Clear (Clear); Glucose, Urine (Dipstick) Normal (Negative); Ketone, Urine Negative (Negative); Leukocyte Negative Leu/uL (Negative); Nitrite Negative (Negative); Protein, Urine (Dipstick) Negative (Neg-Trace); Specific Gravity, Urine 1.029 (1.002-1.036); Urobilinogen Normal mg/dL (Less than 2)
[2021-02-16] MEDS ORDERED: Aspirin Chewable 81 MG TAB ONE (16:06)
[2021-02-16] MEDS ORDERED: hydrALAZINE 20 MG/ML VIAL SLOW IVP PRN (16:30)
[2021-02-16] MEDS ORDERED: Labetalol HCl 100 MG/20 ML VIAL SLOW IVP PRN (16:30)
[2021-02-16] MEDS ORDERED: Potassium Chloride 20 MEQ TAB ONE (16:49)
[2021-02-16] MEDS ORDERED: Ondansetron ODT 4 MG TAB PO PRN (17:21)
[2021-02-16] MEDS ORDERED: Loperamide HCl 2 MG CAP PO PRN (17:21)
[2021-02-16] MEDS ORDERED: Artificial Tear Sol 15 ML BOT EA EYE PRN (17:21)
[2021-02-16] MEDS ORDERED: Senokot S 8.6-50 MG TAB PO PRN (17:21)
[2021-02-16] MEDS ORDERED: Benzonatate 100 MG CAP PO PRN (17:21)
[2021-02-16] MEDS ORDERED: Ondansetron PF 4 MG/2 ML Vial IVP PRN (17:21)
[2021-02-16] MEDS ORDERED: Sodium Chloride 0.65% Nasal 44 ML BOT EA NARE PRN (17:21)
[2021-02-16 17:22] LABS: INR-International Normal Ratio 1.1; PTT 40.3 sec (22.9-36.1); Prothrombin Time 13.9 sec (12.0-14.7)
[2021-02-16 17:30] LABS: Hemoglobin A1c 5.3 % (4.0-6.0)
[2021-02-16] MEDS ORDERED: Electrolyte Replacement Protocol 1 EACH FS SCH (17:30)
[2021-02-16 17:32] LABS: Cardiac Risk 3.5 (Less than 4.5)
[2021-02-16 17:50] LABS: Syphilis Antibody Nonreactive (Nonreactive); Syphilis Antibody Index 0.25 S/CO (<1.00 Non-Reactive)
[2021-02-16] MEDS ORDERED: Acetaminophen 325 MG TAB PO PRN (17:53)
[2021-02-16 18:04] LABS: Magnesium 1.8 mg/dL (1.6-2.6)
[2021-02-16] MEDS ORDERED: hydrALAZINE 20 MG/ML VIAL ONE (18:47)
[2021-02-16 20:40] LABS: Amphetamine Not Detected (NotDetected); Barbiturates Screen Not Detected (NotDetected); Benzodiazepine Screen Not Detected (NotDetected); Cocaine Metabolite Screen Not Detected (NotDetected); Methadone Not Detected (NotDetected); Methamphetamine Not Detected (NotDetected); Opiate Screen Not Detected (NotDetected); Oxycodone Screen Not Detected (NotDetected); Phencyclidine (PCP) Not Detected (NotDetected); THC/Cannabinoid Screen Not Detected (NotDetected); Tricyclic Screen Not Detected (NotDetected)
[2021-02-16 21:08] VITALS: BMI 26.2
[2021-02-16] MEDS: Albuterol Sulfate 2.5 mg/3 ml Neb EZPAP SCH ×2 (21:48→21:49)
[2021-02-17] MEDS: Atorvastatin Calcium 40 MG TAB PO SCH ×2 (00:33→21:40)
[2021-02-17] MEDS: Albuterol Sulfate 2.5 mg/3 ml Neb EZPAP SCH ×6 (01:31→22:28)
[2021-02-17 05:25] LABS: ALT (SGPT) 99 U/L (8-55); AST (SGOT) 65 U/L (5-34); Albumin 3.6 g/dL (3.5-5.0); Alkaline Phosphatase 67 U/L (40-110); Anion Gap 12 mmol/L (10-20); BUN (Urea Nitrogen) 9 mg/dL (8.4-25.7); Bilirubin, Total 0.9 mg/dL (0.2-1.2); Calc. Creatinine Clearance 117 mL/min (70-130); Calcium 9.3 mg/dL (7.8-10.44); Carbon Dioxide 24 mmol/L (22-29); Chloride 105 mmol/L (98-107); Globulin 3.8 g/dL (2.4-3.5); Glucose 93 mg/dL (70-105); Potassium 4.3 mmol/L (3.5-5.1); Protein, Total 7.4 g/dL (6.0-8.3); Sodium 137 mmol/L (136-145)
[2021-02-17] MEDS ORDERED: Magnesium 2 GM/50 ML 2 GM in Premix Bag 1 BAG IVPB SCH (07:00)
[2021-02-17 07:17] LABS: #Eosinphils 0.1 thou/uL (0.0-0.7); #Lymphocytes 1.7 thou/uL (1.20-3.40); #Monocytes 0.5 thou/uL (0.11-0.59); #Neutrophils 3.2 thou/uL (1.40-6.50); %Basophils 0.5 % (0.0-1.0); %Eosinophils 1.3 % (0.0-10.0); %Lymphocytes 30.8 % (21.0-51.0); %Monocytes 9.3 % (0.0-10.0); %Neutrophils 58.1 % (42.0-75.0); Hemoglobin 15.5 g/dL (14.0-18.0); Mean Corpuscular HGB CONC 33.5 g/dL (32.0-36.0); Mean Corpuscular Hemoglobin 30.8 pg (27.0-31.0); Mean Corpuscular Volume 92.1 fL (78.0-98.0); Mean Platelet Volume 9.7 fL (7.4-10.4); Platelet Count 159 thou/uL (130-400); RBC Distribution Width 11.3 % (11.5-14.5); Red Blood Cell (RBC) Count 5.02 mill/uL (4.70-6.10); White Blood Cell (WBC) Count 5.5 thou/uL (4.8-10.8)
[2021-02-17] MEDS: Aspirin 81 mg Enteric Coated Tablet PO SCH (09:41)
[2021-02-17 11:24] LABS: HIV (1/2) Antibody/Antigen Non-Reactive (NonReactive)
[2021-02-17 11:52] LABS: SARS-CoV-2 PCR by NAA Not Detected (NotDetected)
[2021-02-17] MEDS ORDERED: Losartan 25 MG TAB PO SCH (13:30)
[2021-02-18] MEDS: Albuterol Sulfate 2.5 mg/3 ml Neb EZPAP SCH ×6 (01:54→21:52)
[2021-02-18 06:05] LABS: #Basophils 0.1 thou/uL (0.0-0.2); #Eosinphils 0.1 thou/uL (0.0-0.7); #Monocytes 0.6 thou/uL (0.11-0.59); #Neutrophils 3.8 thou/uL (1.40-6.50); %Eosinophils 1.3 % (0.0-10.0); %Monocytes 9.1 % (0.0-10.0); %Neutrophils 58.6 % (42.0-75.0); Hemoglobin 15.5 g/dL (14.0-18.0); Mean Corpuscular HGB CONC 32.2 g/dL (32.0-36.0); Mean Corpuscular Hemoglobin 30.1 pg (27.0-31.0); Mean Corpuscular Volume 93.5 fL (78.0-98.0); Mean Platelet Volume 9.7 fL (7.4-10.4); Platelet Count 152 thou/uL (130-400); RBC Distribution Width 11.4 % (11.5-14.5); Red Blood Cell (RBC) Count 5.15 mill/uL (4.70-6.10); White Blood Cell (WBC) Count 6.5 thou/uL (4.8-10.8)
[2021-02-18 06:32] LABS: ALT (SGPT) 107 U/L (8-55); AST (SGOT) 68 U/L (5-34); Albumin 3.8 g/dL (3.5-5.0); Alkaline Phosphatase 64 U/L (40-110); Anion Gap 12 mmol/L (10-20); BUN (Urea Nitrogen) 11 mg/dL (8.4-25.7); Bilirubin, Total 0.9 mg/dL (0.2-1.2); Calc. Creatinine Clearance 114 mL/min (70-130); Calcium 9.6 mg/dL (7.8-10.44); Carbon Dioxide 25 mmol/L (22-29); Chloride 103 mmol/L (98-107); Globulin 3.9 g/dL (2.4-3.5); Glucose 97 mg/dL (70-105); Potassium 4.2 mmol/L (3.5-5.1); Protein, Total 7.7 g/dL (6.0-8.3); Sodium 136 mmol/L (136-145)
[2021-02-18] MEDS: Aspirin 81 mg Enteric Coated Tablet PO SCH (08:08)
[2021-02-18] MEDS: Losartan 25 MG TAB PO SCH (08:09)
[2021-02-18] MEDS ORDERED: hydrALAZINE 20 MG/ML VIAL SLOW IVP PRN (13:33)
[2021-02-18] MEDS ORDERED: Labetalol HCl 100 MG/20 ML VIAL SLOW IVP PRN (13:34)
[2021-02-18] MEDS ORDERED: Amlodipine 5 MG TAB PO SCH (13:45)
[2021-02-18] MEDS: hydrALAZINE 25 MG TAB PO SCH (20:23)
[2021-02-18] MEDS: Labetalol 100 MG TAB PO SCH (20:23)
[2021-02-19] MEDS: Albuterol Sulfate 2.5 mg/3 ml Neb EZPAP SCH ×6 (02:43→22:15)
[2021-02-19 05:02] LABS: #Eosinphils 0.1 thou/uL (0.0-0.7); #Lymphocytes 2.2 thou/uL (1.20-3.40); #Monocytes 0.7 thou/uL (0.11-0.59); %Basophils 0.5 % (0.0-1.0); %Eosinophils 1.3 % (0.0-10.0); %Lymphocytes 36.6 % (21.0-51.0); %Monocytes 11.1 % (0.0-10.0); %Neutrophils 50.6 % (42.0-75.0); Hemoglobin 15.3 g/dL (14.0-18.0); Mean Corpuscular HGB CONC 34.7 g/dL (32.0-36.0); Mean Corpuscular Hemoglobin 32.1 pg (27.0-31.0); Mean Corpuscular Volume 92.6 fL (78.0-98.0); Mean Platelet Volume 9.7 fL (7.4-10.4); Platelet Count 141 thou/uL (130-400); RBC Distribution Width 11.3 % (11.5-14.5); Red Blood Cell (RBC) Count 4.77 mill/uL (4.70-6.10); White Blood Cell (WBC) Count 5.9 thou/uL (4.8-10.8)
[2021-02-19 05:22] LABS: ALT (SGPT) 93 U/L (8-55); AST (SGOT) 58 U/L (5-34); Albumin 3.5 g/dL (3.5-5.0); Alkaline Phosphatase 61 U/L (40-110); Anion Gap 14 mmol/L (10-20); BUN (Urea Nitrogen) 11 mg/dL (8.4-25.7); Bilirubin, Total 0.8 mg/dL (0.2-1.2); Calc. Creatinine Clearance 122 mL/min (70-130); Calcium 9.3 mg/dL (7.8-10.44); Carbon Dioxide 23 mmol/L (22-29); Chloride 103 mmol/L (98-107); Globulin 3.9 g/dL (2.4-3.5); Glucose 90 mg/dL (70-105); Potassium 4.5 mmol/L (3.5-5.1); Protein, Total 7.4 g/dL (6.0-8.3); Sodium 135 mmol/L (136-145)
[2021-02-19] MEDS ORDERED: Amlodipine 5 MG TAB PO SCH (09:00)
[2021-02-19] MEDS: Losartan 25 MG TAB PO SCH (10:13)
[2021-02-19] MEDS: Labetalol 100 MG TAB PO SCH (10:13)
[2021-02-19] MEDS: Aspirin 81 mg Enteric Coated Tablet PO SCH (10:13)
[2021-02-19] MEDS: hydrALAZINE 25 MG TAB PO SCH ×2 (10:14→20:03)
[2021-02-19] MEDS: Atorvastatin Calcium 40 MG TAB PO SCH (20:02)
[2021-02-19] MEDS ORDERED: Labetalol 100 MG TAB PO SCH (21:00)
[2021-02-20] MEDS: Albuterol Sulfate 2.5 mg/3 ml Neb EZPAP SCH ×3 (02:14→10:43)
[2021-02-20 05:55] LABS: #Basophils 0.1 thou/uL (0.0-0.2); #Eosinphils 0.1 thou/uL (0.0-0.7); #Lymphocytes 1.9 thou/uL (1.20-3.40); #Monocytes 0.7 thou/uL (0.11-0.59); #Neutrophils 2.9 thou/uL (1.40-6.50); %Basophils 1.7 % (0.0-1.0); %Eosinophils 2.1 % (0.0-10.0); %Monocytes 11.5 % (0.0-10.0); %Neutrophils 50.8 % (42.0-75.0); Hemoglobin 15.5 g/dL (14.0-18.0); Mean Corpuscular HGB CONC 34.8 g/dL (32.0-36.0); Mean Corpuscular Hemoglobin 32.3 pg (27.0-31.0); Mean Corpuscular Volume 92.8 fL (78.0-98.0); Platelet Count 151 thou/uL (130-400); RBC Distribution Width 11.3 % (11.5-14.5); Red Blood Cell (RBC) Count 4.79 mill/uL (4.70-6.10); White Blood Cell (WBC) Count 5.6 thou/uL (4.8-10.8)
[2021-02-20 06:28] LABS: ALT (SGPT) 104 U/L (8-55); AST (SGOT) 68 U/L (5-34); Albumin 3.6 g/dL (3.5-5.0); Alkaline Phosphatase 58 U/L (40-110); Anion Gap 12 mmol/L (10-20); BUN (Urea Nitrogen) 12 mg/dL (8.4-25.7); Bilirubin, Total 0.9 mg/dL (0.2-1.2); Calc. Creatinine Clearance 125 mL/min (70-130); Calcium 9.7 mg/dL (7.8-10.44); Carbon Dioxide 25 mmol/L (22-29); Chloride 103 mmol/L (98-107); Globulin 3.8 g/dL (2.4-3.5); Glucose 120 mg/dL (70-105); Potassium 4.3 mmol/L (3.5-5.1); Protein, Total 7.4 g/dL (6.0-8.3); Sodium 136 mmol/L (136-145)
[2021-02-20] MEDS: Aspirin 81 mg Enteric Coated Tablet PO SCH (09:11)
[2021-02-20] MEDS: Losartan 25 MG TAB PO SCH (09:11)
[2021-02-20] MEDS: hydrALAZINE 25 MG TAB PO SCH ×2 (09:11→20:47)
[2021-02-20] MEDS: Labetalol 100 MG TAB PO SCH ×2 (10:10→20:47)
[2021-02-20] MEDS ORDERED: Albuterol Sulfate 2.5 mg/3 ml Neb EZPAP PRN (10:34)
[2021-02-20] MEDS: Apixaban 5 MG TAB PO SCH (20:47)
[2021-02-20] MEDS: Atorvastatin Calcium 40 MG TAB PO SCH (20:48)
[2021-02-20] MEDS ORDERED: Apixaban 5 MG TAB PO SCH (21:00)
[2021-02-21] MEDS: Labetalol 100 MG TAB PO SCH (08:41)
[2021-02-21] MEDS: Aspirin 81 mg Enteric Coated Tablet PO SCH (08:42)
[2021-02-21] MEDS: hydrALAZINE 25 MG TAB PO SCH (08:42)
[2021-02-21] MEDS: Apixaban 5 MG TAB PO SCH (08:42)
[2021-02-21] MEDS: Losartan 25 MG TAB PO SCH (08:42)
[2021-02-21 08:45] VITALS: TEMP 98
[2021-02-21 12:49] VITALS: BP 160/70
== END 2021-02-21 12:33 | disposition home or self-care (01) | DRG 65 ==
LOC: ERS 13:50 → ERHOLD 15:41 → 3SE 21:01 → NEURO 02-21 10:50
PROVIDERS: ADMIT Family Medicine; ATTEND Internal Medicine
DX: I63.81 Other cerebral infarction due to occlusion or stenosis of small artery (principal); I69.954 Hemiplegia and hemiparesis following unspecified cerebrovascular disease affecting left non-dominant side; Z20.822 Contact with and (suspected) exposure to COVID-19; I10 Essential (primary) hypertension; M48.00 Spinal stenosis, site unspecified; F41.9 Anxiety disorder, unspecified; F17.210 Nicotine dependence, cigarettes, uncomplicated; E87.6 Hypokalemia; I48.0 Paroxysmal atrial fibrillation; B18.2 Chronic viral hepatitis C; R13.10 Dysphagia, unspecified; I25.10 Atherosclerotic heart disease of native coronary artery without angina pectoris; F12.90 Cannabis use, unspecified, uncomplicated; R31.9 Hematuria, unspecified; R20.2 Paresthesia of skin; R47.81 Slurred speech; I16.0 Hypertensive urgency; R29.707 NIHSS score 7; R00.1 Bradycardia, unspecified; I25.2 Old myocardial infarction; Z90.49 Acquired absence of other specified parts of digestive tract; Z98.890 Other specified postprocedural states; Z88.8 Allergy status to other drugs, medicaments and biological substances; Z79.899 Other long term (current) drug therapy; Z79.01 Long term (current) use of anticoagulants; I69.993 Ataxia following unspecified cerebrovascular disease
CPT/HCPCS: 36415; 70450; 70496; 70498; 70551; 71045; 74230; 80053; 80061; 80306; 81003; 82550; 83036; 83735; 83880; 84484; 85025; 85610; 85730; 86780; 87389; 93005; 93306; 94640; J0360; J3475; J7611; Q9967; U0003; U0005

== ENCOUNTER 2021-05-25 05:45 | Day surgery (SDC) | payer OTHER ==
[2021-05-18 15:04] VITALS: BMI 26.6
[2021-05-25] MEDS ORDERED: Thrombin 5000 UNITS/5 ML VIAL ONE ×2 (06:21)
[2021-05-25] MEDS ORDERED: EPINEPHrine 1 MG/ML AMP ONE (06:21)
[2021-05-25] MEDS ORDERED: Bupivacaine PF 0.5% 30 ML VIAL ONE (06:21)
[2021-05-25] MEDS ORDERED: Midazolam HCl 2 mg/2 ml Vial ONE (06:53)
[2021-05-25] MEDS ORDERED: ceFAZolin 2 GM/Dextrose 50 ML IVPB ONE ×2 (06:54→11:54)
[2021-05-25] MEDS ORDERED: Fentanyl 250 MCG/5 ML VIAL ONE (06:55)
[2021-05-25] MEDS ORDERED: Dexmedetomidine 200 MCG/2 ML VIAL ONE (06:55)
[2021-05-25] MEDS ORDERED: PROPOFOL 200 MG/20 ML VIAL ONE (07:07)
[2021-05-25] MEDS ORDERED: Ondansetron PF 4 MG/2 ML Vial ONE (07:07)
[2021-05-25] MEDS ORDERED: Glycopyrrolate 0.2 MG/ML 5 ML SYRINGE ONE (07:07)
[2021-05-25] MEDS ORDERED: Dexamethasone 20 MG/5 ML VIAL ONE (07:07)
[2021-05-25] MEDS ORDERED: Lidocaine 1% PF 5 ML VIAL ONE ×2 (07:07)
[2021-05-25] MEDS ORDERED: Rocuronium Bromide 10 MG/ML (10ML VIAL) ONE (07:07)
[2021-05-25] MEDS ORDERED: Acetaminophen/Codeine 30-300mg Tablet ONE (10:22)
[2021-05-25] MEDS ORDERED: hydrALAZINE 20 MG/ML VIAL ONE (10:57)
== END 2021-05-25 12:25 | disposition home or self-care (01) ==
LOC: SDC 05:45
PROVIDERS: ATTEND Neurological Surgery
PROC: 0RG10A0 Fusion of Cervical Vertebral Joint with Interbody Fusion Device, Anterior Approach, Anterior Column, Open Approach (ICD-10-PCS; principal; 2021-05-25)
DX: M47.12 Other spondylosis with myelopathy, cervical region (principal); M47.22 Other spondylosis with radiculopathy, cervical region; M48.02 Spinal stenosis, cervical region; E78.5 Hyperlipidemia, unspecified; I10 Essential (primary) hypertension; F17.200 Nicotine dependence, unspecified, uncomplicated; Z86.73 Personal history of transient ischemic attack (TIA), and cerebral infarction without residual deficits; Z79.01 Long term (current) use of anticoagulants; Z79.899 Other long term (current) drug therapy; Z88.8 Allergy status to other drugs, medicaments and biological substances
CPT/HCPCS: 76000; C1713; C1776; J0171; J0360; J0690; J1100; J2250; J2405; J2704; J3010; S0020

== ENCOUNTER 2021-08-23 10:39 | Observation (INO) | payer OTHER ==
[2021-08-23 12:08] LABS: #Basophils 0.1 thou/uL (0.0-0.2); #Eosinphils 0.2 thou/uL (0.0-0.7); #Lymphocytes 2.1 thou/uL (1.20-3.40); #Monocytes 0.8 thou/uL (0.11-0.59); #Neutrophils 3.9 thou/uL (1.40-6.50); %Basophils 0.9 % (0.0-1.0); %Eosinophils 2.3 % (0.0-10.0); %Lymphocytes 30.2 % (21.0-51.0); %Monocytes 11.7 % (0.0-10.0); %Neutrophils 54.9 % (42.0-75.0); Hemoglobin 15.5 g/dL (14.0-18.0); Mean Corpuscular HGB CONC 32.9 g/dL (32.0-36.0); Mean Corpuscular Volume 94.3 fL (78.0-98.0); Mean Platelet Volume 8.9 fL (7.4-10.4); Platelet Count 179 thou/uL (130-400); RBC Distribution Width 11.9 % (11.5-14.5); Red Blood Cell (RBC) Count 4.99 mill/uL (4.70-6.10)
[2021-08-23] MEDS ORDERED: Aspirin Chewable 81 MG TAB ONE (12:08)
[2021-08-23] MEDS ORDERED: methylPREDNISolone Sod Succ/PF 125 MG/2 ML VIAL ONE (12:08)
[2021-08-23 12:23] LABS: ALT (SGPT) 12 U/L (8-55); AST (SGOT) 15 U/L (5-34); Albumin 4.2 g/dL (3.5-5.0); Alkaline Phosphatase 62 U/L (40-110); Anion Gap 12 mmol/L (10-20); BUN (Urea Nitrogen) 11 mg/dL (8.4-25.7); Bilirubin, Total 0.6 mg/dL (0.2-1.2); Calc. Creatinine Clearance 0 mL/min (70-130); Calcium 9.7 mg/dL (7.8-10.44); Carbon Dioxide 25 mmol/L (22-29); Chloride 105 mmol/L (98-107); Globulin 3.9 g/dL (2.4-3.5); Glucose 83 mg/dL (70-105); Potassium 3.9 mmol/L (3.5-5.1); Protein, Total 8.1 g/dL (6.0-8.3); Sodium 138 mmol/L (136-145)
[2021-08-23 14:53] LABS: Troponin I Less than 0.010 ng/mL (< 0.028)
[2021-08-23] MEDS ORDERED: Acetaminophen 325 MG TAB PO PRN (14:53)
[2021-08-23 15:52] VITALS: TEMP 98.2
[2021-08-23 16:00] VITALS: BMI 26.9
[2021-08-23] MEDS ORDERED: hydrALAZINE 20 MG/ML VIAL SLOW IVP PRN ×2 (16:04→16:17)
[2021-08-23] MEDS ORDERED: cloNIDine 0.1 MG TAB PO PRN (17:36)
[2021-08-23 17:41] LABS: Cardiac Risk 3.2 (Less than 4.5)
[2021-08-23 17:46] LABS: Troponin I Less than 0.010 ng/mL (< 0.028)
[2021-08-23 17:56] VITALS: BP 170/90
[2021-08-23] MEDS ORDERED: hydrALAZINE 25 MG TAB PO SCH (21:00)
[2021-08-23] MEDS ORDERED: Labetalol HCl 100 MG TAB PO SCH (21:00)
[2021-08-23] MEDS ORDERED: Atorvastatin Calcium 40 MG TAB PO SCH (21:00)
[2021-08-23] MEDS ORDERED: Apixaban 5 MG TAB PO SCH (21:00)
[2021-08-24] MEDS ORDERED: Losartan/Hydrochlorothiazide 100 mg/25 mg Tablet PO SCH (09:00)
== END 2021-08-23 18:40 | disposition home or self-care (01) ==
LOC: ERS 10:39 → 2SW 13:56
PROVIDERS: ADMIT Student in an Organized Health Care Education/Training Program; ATTEND Student in an Organized Health Care Education/Training Program
DX: I16.0 Hypertensive urgency (principal); R07.89 Other chest pain; E78.5 Hyperlipidemia, unspecified; I48.91 Unspecified atrial fibrillation; J44.9 Chronic obstructive pulmonary disease, unspecified; M54.12 Radiculopathy, cervical region; F17.210 Nicotine dependence, cigarettes, uncomplicated; I10 Essential (primary) hypertension; I25.2 Old myocardial infarction; F12.10 Cannabis abuse, uncomplicated; Z86.73 Personal history of transient ischemic attack (TIA), and cerebral infarction without residual deficits; Z91.14 Patient's other noncompliance with medication regimen; Z79.01 Long term (current) use of anticoagulants; Z79.899 Other long term (current) drug therapy; Z88.8 Allergy status to other drugs, medicaments and biological substances; Z98.1 Arthrodesis status
CPT/HCPCS: 36415; 70491; 71045; 80053; 80061; 83880; 84484; 85025; 93005; 94640; 96374; 96375; G0378; J0360; J2930; J7620; Q9967

== ENCOUNTER 2021-10-11 09:33 | Inpatient (IN) | payer OTHER ==
[2021-10-11 10:47] LABS: #Basophils 0.1 thou/uL (0.0-0.2); #Eosinphils 0.1 thou/uL (0.0-0.7); #Lymphocytes 2.8 thou/uL (1.20-3.40); #Monocytes 0.6 thou/uL (0.11-0.59); #Neutrophils 4.3 thou/uL (1.40-6.50); %Basophils 0.9 % (0.0-1.0); %Eosinophils 1.8 % (0.0-10.0); %Lymphocytes 35.6 % (21.0-51.0); %Monocytes 8.1 % (0.0-10.0); %Neutrophils 53.6 % (42.0-75.0); Hemoglobin 15.7 g/dL (14.0-18.0); Mean Corpuscular HGB CONC 33.2 g/dL (32.0-36.0); Mean Corpuscular Hemoglobin 30.7 pg (27.0-31.0); Mean Corpuscular Volume 92.5 fL (78.0-98.0); Mean Platelet Volume 8.6 fL (7.4-10.4); Platelet Count 181 thou/uL (130-400); RBC Distribution Width 12.2 % (11.5-14.5); Red Blood Cell (RBC) Count 5.12 mill/uL (4.70-6.10); White Blood Cell (WBC) Count 7.9 thou/uL (4.8-10.8)
[2021-10-11 11:10] LABS: ALT (SGPT) 13 U/L (8-55); AST (SGOT) 14 U/L (5-34); Albumin 4.2 g/dL (3.5-5.0); Alkaline Phosphatase 60 U/L (40-110); Anion Gap 13 mmol/L (10-20); BUN (Urea Nitrogen) 11 mg/dL (8.4-25.7); Bilirubin, Total 0.9 mg/dL (0.2-1.2); Calc. Creatinine Clearance 0 mL/min (70-130); Calcium 9.7 mg/dL (7.8-10.44); Carbon Dioxide 25 mmol/L (22-29); Chloride 104 mmol/L (98-107); Globulin 3.6 g/dL (2.4-3.5); Glucose 87 mg/dL (70-105); Potassium 3.8 mmol/L (3.5-5.1); Protein, Total 7.8 g/dL (6.0-8.3); Sodium 138 mmol/L (136-145)
[2021-10-11] MEDS ORDERED: hydrALAZINE 20 MG/ML VIAL ONE (12:20)
[2021-10-11] MEDS ORDERED: Senokot S 8.6-50 MG TAB PO PRN (14:30)
[2021-10-11] MEDS ORDERED: Ondansetron ODT 4 MG TAB PO PRN (14:30)
[2021-10-11] MEDS ORDERED: cloNIDine 0.1 MG TAB PO PRN (15:00)
[2021-10-11 15:27] VITALS: BMI 27.6
[2021-10-11 16:40] LABS: Amphetamine Not Detected (NotDetected); Barbiturates Screen Not Detected (NotDetected); Benzodiazepine Screen Not Detected (NotDetected); Cocaine Metabolite Screen Not Detected (NotDetected); Methadone Not Detected (NotDetected); Methamphetamine Not Detected (NotDetected); Opiate Screen Not Detected (NotDetected); Oxycodone Screen Not Detected (NotDetected); Phencyclidine (PCP) Not Detected (NotDetected); THC/Cannabinoid Screen Detected (NotDetected); Tricyclic Screen Not Detected (NotDetected)
[2021-10-11] MEDS ORDERED: hydrALAZINE 20 MG/ML VIAL SLOW IVP PRN (17:27)
[2021-10-11] MEDS: hydrALAZINE 25 MG TAB PO SCH ×2 (17:40→20:50)
[2021-10-11] MEDS: Acetaminophen 325 MG TAB PO PRN (17:44)
[2021-10-11] MEDS: Nicotine 21 MG PATCH TD SCH (18:42)
[2021-10-11] MEDS: Atorvastatin Calcium 40 MG TAB PO SCH (20:50)
[2021-10-11] MEDS: Labetalol HCl 100 MG TAB PO SCH (20:50)
[2021-10-12 05:14] LABS: #Basophils 0.1 thou/uL (0.0-0.2); #Eosinphils 0.2 thou/uL (0.0-0.7); #Lymphocytes 2.1 thou/uL (1.20-3.40); #Monocytes 0.6 thou/uL (0.11-0.59); #Neutrophils 3.2 thou/uL (1.40-6.50); %Basophils 0.8 % (0.0-1.0); %Eosinophils 2.9 % (0.0-10.0); %Lymphocytes 34.4 % (21.0-51.0); %Neutrophils 51.9 % (42.0-75.0); Hemoglobin 15.6 g/dL (14.0-18.0); Mean Corpuscular HGB CONC 32.9 g/dL (32.0-36.0); Mean Corpuscular Hemoglobin 30.8 pg (27.0-31.0); Mean Corpuscular Volume 93.8 fL (78.0-98.0); Mean Platelet Volume 9.1 fL (7.4-10.4); Platelet Count 171 thou/uL (130-400); RBC Distribution Width 12.1 % (11.5-14.5); Red Blood Cell (RBC) Count 5.06 mill/uL (4.70-6.10); White Blood Cell (WBC) Count 6.2 thou/uL (4.8-10.8)
[2021-10-12 05:32] LABS: Anion Gap 14 mmol/L (10-20); BUN (Urea Nitrogen) 12 mg/dL (8.4-25.7); Calc. Creatinine Clearance 130 mL/min (70-130); Calcium 9.3 mg/dL (7.8-10.44); Carbon Dioxide 21 mmol/L (22-29); Chloride 105 mmol/L (98-107); Glucose 107 mg/dL (70-105); Potassium 3.8 mmol/L (3.5-5.1); Sodium 136 mmol/L (136-145)
[2021-10-12] MEDS: hydrALAZINE 25 MG TAB PO SCH ×3 (08:33→20:47)
[2021-10-12] MEDS: Enoxaparin Sodium 40 MG/0.4 ML SYRINGE SC SCH (08:33)
[2021-10-12] MEDS: Hydrochlorothiazide 25 MG TAB PO SCH (08:35)
[2021-10-12] MEDS: Labetalol HCl 100 MG TAB PO SCH ×2 (08:36→20:48)
[2021-10-12] MEDS: Losartan 25 MG TAB PO SCH (08:37)
[2021-10-12] MEDS: Acetaminophen 325 MG TAB PO PRN (08:38)
[2021-10-12] MEDS: Nicotine 21 MG PATCH TD SCH (16:12)
[2021-10-12] MEDS: Atorvastatin Calcium 40 MG TAB PO SCH (20:48)
[2021-10-13 08:13] LABS: Anion Gap 13 mmol/L (10-20); BUN (Urea Nitrogen) 11 mg/dL (8.4-25.7); Calc. Creatinine Clearance 121 mL/min (70-130); Calcium 9.7 mg/dL (7.8-10.44); Carbon Dioxide 25 mmol/L (22-29); Chloride 103 mmol/L (98-107); Glucose 100 mg/dL (70-105); Potassium 4.3 mmol/L (3.5-5.1); Sodium 137 mmol/L (136-145)
[2021-10-13] MEDS: hydrALAZINE 25 MG TAB PO SCH ×3 (08:46→22:27)
[2021-10-13] MEDS: Hydrochlorothiazide 25 MG TAB PO SCH (08:46)
[2021-10-13] MEDS: Enoxaparin Sodium 40 MG/0.4 ML SYRINGE SC SCH (08:46)
[2021-10-13] MEDS: Losartan 25 MG TAB PO SCH (08:47)
[2021-10-13] MEDS: Labetalol HCl 100 MG TAB PO SCH ×2 (08:47→22:26)
[2021-10-13 09:06] LABS: #Basophils 0.1 thou/uL (0.0-0.2); #Eosinphils 0.1 thou/uL (0.0-0.7); #Lymphocytes 2.3 thou/uL (1.20-3.40); #Monocytes 0.7 thou/uL (0.11-0.59); #Neutrophils 4.6 thou/uL (1.40-6.50); %Basophils 0.7 % (0.0-1.0); %Eosinophils 1.8 % (0.0-10.0); %Lymphocytes 29.4 % (21.0-51.0); %Monocytes 8.6 % (0.0-10.0); %Neutrophils 59.5 % (42.0-75.0); Hemoglobin 15.7 g/dL (14.0-18.0); Mean Corpuscular Hemoglobin 30.9 pg (27.0-31.0); Mean Corpuscular Volume 93.6 fL (78.0-98.0); Mean Platelet Volume 9.1 fL (7.4-10.4); Platelet Count 190 thou/uL (130-400); RBC Distribution Width 12.3 % (11.5-14.5); Red Blood Cell (RBC) Count 5.08 mill/uL (4.70-6.10); White Blood Cell (WBC) Count 7.8 thou/uL (4.8-10.8)
[2021-10-13] MEDS ORDERED: Clopidogrel Bisulfate 300 MG TAB PO SCH (09:30)
[2021-10-13] MEDS: Acetaminophen 325 MG TAB PO PRN (15:56)
[2021-10-13] MEDS: Nicotine 21 MG PATCH TD SCH (17:10)
[2021-10-13] MEDS: Atorvastatin Calcium 40 MG TAB PO SCH (22:26)
[2021-10-14 05:19] LABS: #Basophils 0.1 thou/uL (0.0-0.2); #Eosinphils 0.2 thou/uL (0.0-0.7); #Lymphocytes 2.2 thou/uL (1.20-3.40); #Monocytes 0.7 thou/uL (0.11-0.59); #Neutrophils 3.4 thou/uL (1.40-6.50); %Basophils 0.9 % (0.0-1.0); %Eosinophils 2.6 % (0.0-10.0); %Lymphocytes 33.8 % (21.0-51.0); %Monocytes 10.1 % (0.0-10.0); %Neutrophils 52.6 % (42.0-75.0); Hemoglobin 15.2 g/dL (14.0-18.0); Mean Corpuscular HGB CONC 33.6 g/dL (32.0-36.0); Mean Corpuscular Hemoglobin 31.1 pg (27.0-31.0); Mean Corpuscular Volume 92.7 fL (78.0-98.0); Mean Platelet Volume 8.8 fL (7.4-10.4); Platelet Count 175 thou/uL (130-400); RBC Distribution Width 12.1 % (11.5-14.5); Red Blood Cell (RBC) Count 4.89 mill/uL (4.70-6.10); White Blood Cell (WBC) Count 6.5 thou/uL (4.8-10.8)
[2021-10-14 05:44] LABS: Anion Gap 14 mmol/L (10-20); BUN (Urea Nitrogen) 11 mg/dL (8.4-25.7); Calc. Creatinine Clearance 126 mL/min (70-130); Calcium 9.8 mg/dL (7.8-10.44); Carbon Dioxide 24 mmol/L (22-29); Chloride 103 mmol/L (98-107); Glucose 114 mg/dL (70-105); Potassium 3.6 mmol/L (3.5-5.1); Sodium 137 mmol/L (136-145)
[2021-10-14 08:26] LABS: Hemoglobin A1c 5.4 % (4.0-6.0)
[2021-10-14] MEDS ORDERED: Aspirin 81 mg Enteric Coated Tablet PO SCH (09:00)
[2021-10-14] MEDS ORDERED: Clopidogrel Bisulfate 75 MG TAB PO SCH (09:00)
[2021-10-14] MEDS: hydrALAZINE 25 MG TAB PO SCH ×2 (09:15→14:15)
[2021-10-14] MEDS: Labetalol HCl 100 MG TAB PO SCH (09:16)
[2021-10-14] MEDS: Hydrochlorothiazide 25 MG TAB PO SCH (09:17)
[2021-10-14] MEDS: Losartan 25 MG TAB PO SCH (09:17)
[2021-10-14 11:55] VITALS: BP 155/91; TEMP 98.3
== END 2021-10-14 14:33 | disposition home or self-care (01) | DRG 65 ==
LOC: ERS 09:33 → 2SW 12:22 → OBSVTOIN 10-12 16:20 → NEURO 10-13 14:19
PROVIDERS: ADMIT Family Medicine; ATTEND Family Medicine
DX: I63.511 Cerebral infarction due to unspecified occlusion or stenosis of right middle cerebral artery (principal); I69.354 Hemiplegia and hemiparesis following cerebral infarction affecting left non-dominant side; I16.1 Hypertensive emergency; Z20.822 Contact with and (suspected) exposure to COVID-19; B18.2 Chronic viral hepatitis C; I10 Essential (primary) hypertension; F41.9 Anxiety disorder, unspecified; E78.5 Hyperlipidemia, unspecified; J44.9 Chronic obstructive pulmonary disease, unspecified; F17.210 Nicotine dependence, cigarettes, uncomplicated; K21.9 Gastro-esophageal reflux disease without esophagitis; I48.91 Unspecified atrial fibrillation; I25.10 Atherosclerotic heart disease of native coronary artery without angina pectoris; M19.90 Unspecified osteoarthritis, unspecified site; M48.02 Spinal stenosis, cervical region; I25.2 Old myocardial infarction; Z88.8 Allergy status to other drugs, medicaments and biological substances; Z79.899 Other long term (current) drug therapy; Z90.49 Acquired absence of other specified parts of digestive tract; Z98.890 Other specified postprocedural states
CPT/HCPCS: 36415; 70450; 70551; 74230; 76770; 80048; 80053; 80061; 80306; 82088; 83036; 83605; 84146; 84244; 84443; 84484; 85025; 93005; 93306; 93880; 93975; 95712; 95819; 95957; 96374; J0360; J1650; U0003; U0005

== ENCOUNTER 2021-12-19 09:21 | Emergency (ER) | payer OTHER ==
[2021-12-19 10:20] LABS: #Basophils 0.1 thou/uL (0.0-0.2); #Eosinphils 0.1 thou/uL (0.0-0.7); #Lymphocytes 2.2 thou/uL (1.20-3.40); #Monocytes 0.6 thou/uL (0.11-0.59); %Eosinophils 1.7 % (0.0-10.0); %Lymphocytes 31.8 % (21.0-51.0); %Monocytes 8.6 % (0.0-10.0); %Neutrophils 56.9 % (42.0-75.0); Hemoglobin 14.9 g/dL (14.0-18.0); Mean Corpuscular Hemoglobin 30.3 pg (27.0-31.0); Mean Corpuscular Volume 91.6 fL (78.0-98.0); Platelet Count 180 thou/uL (130-400); RBC Distribution Width 12.1 % (11.5-14.5); Red Blood Cell (RBC) Count 4.93 mill/uL (4.70-6.10)
[2021-12-19 10:47] LABS: ALT (SGPT) 12 U/L (8-55); AST (SGOT) 13 U/L (5-34); Albumin 4.3 g/dL (3.5-5.0); Alkaline Phosphatase 51 U/L (40-110); Anion Gap 16 mmol/L (10-20); BUN (Urea Nitrogen) 11 mg/dL (8.4-25.7); Bilirubin, Total 0.7 mg/dL (0.2-1.2); CK (CPK) 63 U/L (30-200); Calc. Creatinine Clearance 0 mL/min (70-130); Calcium 9.7 mg/dL (7.8-10.44); Carbon Dioxide 22 mmol/L (22-29); Chloride 104 mmol/L (98-107); Estimated GFR 101; Globulin 3.2 g/dL (2.4-3.5); Glucose 96 mg/dL (70-105); Potassium 3.7 mmol/L (3.5-5.1); Protein, Total 7.5 g/dL (6.0-8.3); Sodium 138 mmol/L (136-145)
== END 2021-12-19 11:35 | disposition home or self-care (01) ==
LOC: ERS 09:21
DX: I65.29 Occlusion and stenosis of unspecified carotid artery (principal); R07.0 Pain in throat; I25.2 Old myocardial infarction; I48.91 Unspecified atrial fibrillation; E78.5 Hyperlipidemia, unspecified; Z86.73 Personal history of transient ischemic attack (TIA), and cerebral infarction without residual deficits; F17.210 Nicotine dependence, cigarettes, uncomplicated
CPT/HCPCS: 36415; 70492; 71045; 80053; 82550; 83880; 84484; 85025; 93005

== ENCOUNTER 2021-12-28 10:37 | Inpatient (IN) | payer OTHER ==
[2021-12-28 11:23] LABS: #Basophils 0.1 thou/uL (0.0-0.2); #Eosinphils 0.1 thou/uL (0.0-0.7); #Lymphocytes 2.3 thou/uL (1.20-3.40); #Monocytes 0.8 thou/uL (0.11-0.59); #Neutrophils 4.2 thou/uL (1.40-6.50); %Basophils 1.1 % (0.0-1.0); %Eosinophils 1.6 % (0.0-10.0); %Lymphocytes 30.7 % (21.0-51.0); %Monocytes 10.2 % (0.0-10.0); %Neutrophils 56.4 % (42.0-75.0); Hemoglobin 15.7 g/dL (14.0-18.0); Mean Corpuscular HGB CONC 33.1 g/dL (32.0-36.0); Mean Corpuscular Hemoglobin 30.6 pg (27.0-31.0); Mean Corpuscular Volume 92.4 fL (78.0-98.0); Mean Platelet Volume 8.9 fL (7.4-10.4); Platelet Count 196 thou/uL (130-400); RBC Distribution Width 11.9 % (11.5-14.5); Red Blood Cell (RBC) Count 5.12 mill/uL (4.70-6.10); White Blood Cell (WBC) Count 7.4 thou/uL (4.8-10.8)
[2021-12-28 11:34] LABS: PTT 34.4 sec (22.9-36.1); Prothrombin Time 13.7 sec (12.0-14.7)
[2021-12-28 11:37] LABS: Acetaminophen Less than 10.0 mcg/mL (10.0-30.0); Alcohol Less than 10 mg/dL (Less than 10); Salicylate Less than 8.0 mg/dL (15.0-30.0)
[2021-12-28 11:45] LABS: ALT (SGPT) 12 U/L (8-55); AST (SGOT) 14 U/L (5-34); Albumin 4.2 g/dL (3.5-5.0); Alkaline Phosphatase 61 U/L (40-110); Anion Gap 14 mmol/L (10-20); BUN (Urea Nitrogen) 11 mg/dL (8.4-25.7); Bilirubin, Total 0.8 mg/dL (0.2-1.2); Calc. Creatinine Clearance 0 mL/min (70-130); Calcium 9.4 mg/dL (7.8-10.44); Carbon Dioxide 25 mmol/L (22-29); Chloride 102 mmol/L (98-107); Estimated GFR 101; Globulin 3.3 g/dL (2.4-3.5); Glucose 94 mg/dL (70-105); Potassium 4.2 mmol/L (3.5-5.1); Protein, Total 7.5 g/dL (6.0-8.3); Sodium 137 mmol/L (136-145)
[2021-12-28 14:27] LABS: Amphetamine Not Detected (NotDetected); Barbiturates Screen Not Detected (NotDetected); Benzodiazepine Screen Not Detected (NotDetected); Cocaine Metabolite Screen Not Detected (NotDetected); Methadone Not Detected (NotDetected); Methamphetamine Not Detected (NotDetected); Opiate Screen Not Detected (NotDetected); Oxycodone Screen Not Detected (NotDetected); Phencyclidine (PCP) Not Detected (NotDetected); THC/Cannabinoid Screen Detected (NotDetected); Tricyclic Screen Not Detected (NotDetected)
[2021-12-28] MEDS ORDERED: cloNIDine 0.1 MG TAB PO PRN (14:39)
[2021-12-28] MEDS ORDERED: Ibuprofen 600 MG TAB PO PRN (15:12)
[2021-12-28 16:36] VITALS: BMI 27.2
[2021-12-28] MEDS: Nicotine 14 MG PATCH TD SCH (17:16)
[2021-12-28] MEDS: Acetaminophen 325 MG TAB PO PRN (17:16)
[2021-12-28] MEDS: hydrALAZINE 25 MG TAB PO SCH ×2 (17:17→21:03)
[2021-12-28] MEDS: Labetalol HCl 100 MG TAB PO SCH (21:03)
[2021-12-28] MEDS: Atorvastatin Calcium 40 MG TAB PO SCH (21:04)
[2021-12-29 06:07] LABS: ALT (SGPT) 10 U/L (8-55); AST (SGOT) 12 U/L (5-34); Albumin 3.9 g/dL (3.5-5.0); Alkaline Phosphatase 57 U/L (40-110); Anion Gap 14 mmol/L (10-20); BUN (Urea Nitrogen) 13 mg/dL (8.4-25.7); Bilirubin, Total 0.8 mg/dL (0.2-1.2); Calc. Creatinine Clearance 112 mL/min (70-130); Calcium 9.1 mg/dL (7.8-10.44); Carbon Dioxide 22 mmol/L (22-29); Chloride 102 mmol/L (98-107); Estimated GFR 101; Globulin 3.4 g/dL (2.4-3.5); Glucose 99 mg/dL (70-105); Potassium 3.7 mmol/L (3.5-5.1); Protein, Total 7.3 g/dL (6.0-8.3); Sodium 134 mmol/L (136-145)
[2021-12-29] MEDS ORDERED: Hydrochlorothiazide 25 MG TAB PO SCH ×2 (09:00→15:47)
[2021-12-29] MEDS: Losartan 25 MG TAB PO SCH (09:26)
[2021-12-29] MEDS: Aspirin 81 mg Enteric Coated Tablet PO SCH (09:26)
[2021-12-29] MEDS: Clopidogrel Bisulfate 75 MG TAB PO SCH (09:26)
[2021-12-29] MEDS: hydrALAZINE 25 MG TAB PO SCH ×3 (09:27→22:10)
[2021-12-29] MEDS: Labetalol HCl 100 MG TAB PO SCH (09:27)
[2021-12-29] MEDS: Enoxaparin Sodium 40 MG/0.4 ML SYRINGE SC SCH (09:27)
[2021-12-29] MEDS: Nicotine 14 MG PATCH TD SCH (16:31)
[2021-12-29] MEDS: Atorvastatin Calcium 40 MG TAB PO SCH (22:10)
[2021-12-30] MEDS: Losartan 25 MG TAB PO SCH (08:28)
[2021-12-30] MEDS: Enoxaparin Sodium 40 MG/0.4 ML SYRINGE SC SCH (08:28)
[2021-12-30] MEDS: Hydrochlorothiazide 25 MG TAB PO SCH (08:29)
[2021-12-30] MEDS: hydrALAZINE 25 MG TAB PO SCH ×3 (08:29→20:53)
[2021-12-30] MEDS: Clopidogrel Bisulfate 75 MG TAB PO SCH (08:29)
[2021-12-30] MEDS: Aspirin 81 mg Enteric Coated Tablet PO SCH (08:29)
[2021-12-30] MEDS ORDERED: hydrALAZINE 25 MG TAB PO SCH (12:00)
[2021-12-30] MEDS ORDERED: Nebivolol HCl 5 MG TAB PO SCH (13:30)
[2021-12-30] MEDS: Nicotine 14 MG PATCH TD SCH (14:22)
[2021-12-30] MEDS: Atorvastatin Calcium 40 MG TAB PO SCH (20:53)
[2021-12-31] MEDS ORDERED: hydrALAZINE 20 MG/ML VIAL SLOW IVP PRN (07:06)
[2021-12-31] MEDS: Losartan 25 MG TAB PO SCH (07:54)
[2021-12-31] MEDS: Enoxaparin Sodium 40 MG/0.4 ML SYRINGE SC SCH (07:54)
[2021-12-31] MEDS: Aspirin 81 mg Enteric Coated Tablet PO SCH (07:55)
[2021-12-31] MEDS: Hydrochlorothiazide 25 MG TAB PO SCH (07:55)
[2021-12-31] MEDS ORDERED: Nebivolol HCl 5 MG TAB PO SCH (09:00)
[2021-12-31] MEDS: Nicotine 14 MG PATCH TD SCH (14:35)
[2021-12-31] MEDS: Atorvastatin Calcium 40 MG TAB PO SCH (20:30)
[2022-01-01] MEDS: Acetaminophen 325 MG TAB PO PRN (07:17)
[2022-01-01 08:00] VITALS: TEMP 98.2
[2022-01-01] MEDS ORDERED: Nebivolol HCl 5 MG TAB PO SCH (09:00)
[2022-01-01] MEDS ORDERED: hydrALAZINE 25 MG TAB PO SCH (09:00)
[2022-01-01] MEDS: Enoxaparin Sodium 40 MG/0.4 ML SYRINGE SC SCH (09:01)
[2022-01-01] MEDS: Aspirin 81 mg Enteric Coated Tablet PO SCH (09:01)
[2022-01-01] MEDS: Hydrochlorothiazide 25 MG TAB PO SCH (09:01)
[2022-01-01] MEDS: Losartan 25 MG TAB PO SCH (09:01)
[2022-01-01 12:29] VITALS: BP 146/88
== END 2022-01-01 13:05 | disposition home or self-care (01) | DRG 66 ==
LOC: ERS 10:37 → NEURO 13:10 → OBSVTOIN 12-30 10:28
PROVIDERS: ADMIT Student in an Organized Health Care Education/Training Program; ATTEND Student in an Organized Health Care Education/Training Program
DX: I63.9 Cerebral infarction, unspecified (principal); R29.703 NIHSS score 3; Z20.822 Contact with and (suspected) exposure to COVID-19; E78.5 Hyperlipidemia, unspecified; F17.210 Nicotine dependence, cigarettes, uncomplicated; F12.10 Cannabis abuse, uncomplicated; R47.1 Dysarthria and anarthria; G47.33 Obstructive sleep apnea (adult) (pediatric); G44.209 Tension-type headache, unspecified, not intractable; R20.2 Paresthesia of skin; M19.90 Unspecified osteoarthritis, unspecified site; F41.9 Anxiety disorder, unspecified; R00.1 Bradycardia, unspecified; M48.02 Spinal stenosis, cervical region; I16.0 Hypertensive urgency; B18.2 Chronic viral hepatitis C; R20.0 Anesthesia of skin; I48.91 Unspecified atrial fibrillation; F10.10 Alcohol abuse, uncomplicated; R47.81 Slurred speech; R13.10 Dysphagia, unspecified; Z86.73 Personal history of transient ischemic attack (TIA), and cerebral infarction without residual deficits; Z98.890 Other specified postprocedural states; Z88.8 Allergy status to other drugs, medicaments and biological substances; Z79.899 Other long term (current) drug therapy; Z79.82 Long term (current) use of aspirin; Z79.01 Long term (current) use of anticoagulants; I25.2 Old myocardial infarction; Z86.16 Personal history of COVID-19; Z90.49 Acquired absence of other specified parts of digestive tract; Z82.49 Family history of ischemic heart disease and other diseases of the circulatory system; Z80.9 Family history of malignant neoplasm, unspecified; Z83.3 Family history of diabetes mellitus; Z71.6 Tobacco abuse counseling
CPT/HCPCS: 36415; 70450; 70551; 71045; 72141; 80053; 80306; 80307; 84443; 84484; 85025; 85610; 85730; 93005; 95712; 95819; 95957; 96372; G0378; J0360; J1650; U0003; U0005

== ENCOUNTER 2022-02-20 19:00 | Outpatient (CLI) | payer OTHER | END 2022-02-20 19:01 | disposition home or self-care (01) | LOC: SLEEPLAB 19:00 | PROVIDERS: ATTEND Student in an Organized Health Care Education/Training Program | DX: G47.33 Obstructive sleep apnea (adult) (pediatric) (principal); R29.818 Other symptoms and signs involving the nervous system; I10 Essential (primary) hypertension; I25.10 Atherosclerotic heart disease of native coronary artery without angina pectoris; R09.89 Other specified symptoms and signs involving the circulatory and respiratory systems; J44.9 Chronic obstructive pulmonary disease, unspecified; R06.83 Snoring; G47.10 Hypersomnia, unspecified; G47.00 Insomnia, unspecified | CPT/HCPCS: 95811 ==

== ENCOUNTER 2022-03-22 15:35 | Inpatient (IN) | payer OTHER ==
[2022-03-22 16:52] LABS: Bilirubin Negative (Negative); Blood, Urine Negative (Negative); Clarity Clear (Clear); Glucose, Urine (Dipstick) Normal (Negative); Ketone, Urine Negative (Negative); Leukocyte Negative Leu/uL (Negative); Nitrite Negative (Negative); Protein, Urine (Dipstick) Negative (Neg-Trace); Specific Gravity, Urine 1.013 (1.002-1.036); Urobilinogen Normal mg/dL (Less than 2); pH, Urine 6.5 (5.0-9.0)
[2022-03-22 17:07] LABS: #Eosinphils 0.1 thou/uL (0.0-0.7); #Lymphocytes 2.4 thou/uL (1.20-3.40); #Monocytes 0.8 thou/uL (0.11-0.59); #Neutrophils 5.1 thou/uL (1.40-6.50); %Basophils 0.5 % (0.0-1.0); %Eosinophils 1.5 % (0.0-10.0); %Lymphocytes 28.3 % (21.0-51.0); %Monocytes 9.1 % (0.0-10.0); %Neutrophils 60.5 % (42.0-75.0); Hemoglobin 14.6 g/dL (14.0-18.0); Mean Corpuscular HGB CONC 32.6 g/dL (32.0-36.0); Mean Corpuscular Hemoglobin 29.9 pg (27.0-31.0); Mean Corpuscular Volume 91.6 fl (78.0-98.0); Mean Platelet Volume 8.5 fL (7.4-10.4); Platelet Count 193 10x3/uL (130-400); Red Blood Cell (RBC) Count 4.89 mill/uL (4.70-6.10); White Blood Cell (WBC) Count 8.4 10x3/uL (4.8-10.8)
[2022-03-22 17:30] LABS: ALT (SGPT) 14 U/L (8-55); AST (SGOT) 16 U/L (5-34); Alkaline Phosphatase 56 U/L (40-110); Anion Gap 13 mmol/L (10-20); BUN (Urea Nitrogen) 9 mg/dL (8.4-25.7); Bilirubin, Total 0.3 mg/dL (0.2-1.2); Calc. Creatinine Clearance 0 mL/min (70-130); Calcium 9.4 mg/dL (7.8-10.44); Carbon Dioxide 25 mmol/L (22-29); Chloride 103 mmol/L (98-107); Estimated GFR 101; Globulin 3.5 g/dL (2.4-3.5); Glucose 85 mg/dL (70-105); Potassium 3.9 mmol/L (3.5-5.1); Protein, Total 7.5 g/dL (6.0-8.3); Sodium 137 mmol/L (136-145)
[2022-03-22 18:36] LABS: INR-International Normal Ratio 1.1; PTT 35.1 sec (22.9-36.1); Prothrombin Time 15.1 sec (12.0-14.7)
[2022-03-22 18:51] LABS: SARS-CoV-2 NAA Rapid Test Not Detected (NotDetected)
[2022-03-22] MEDS ORDERED: Aspirin Chewable 81 MG TAB ONE (20:49)
[2022-03-22] MEDS ORDERED: Ondansetron ODT 4 MG TAB PO PRN (23:27)
[2022-03-22] MEDS ORDERED: Acetaminophen 325 MG TAB PO PRN (23:27)
[2022-03-22] MEDS ORDERED: Nicotine 21 MG PATCH TD SCH (23:59)
[2022-03-23 05:03] LABS: #Basophils 0.1 thou/uL (0.0-0.2); #Eosinphils 0.1 thou/uL (0.0-0.7); #Lymphocytes 1.8 thou/uL (1.20-3.40); #Monocytes 0.6 thou/uL (0.11-0.59); #Neutrophils 3.9 thou/uL (1.40-6.50); %Basophils 1.1 % (0.0-1.0); %Eosinophils 1.9 % (0.0-10.0); %Lymphocytes 27.1 % (21.0-51.0); %Monocytes 9.6 % (0.0-10.0); %Neutrophils 60.3 % (42.0-75.0); Hemoglobin 14.6 g/dL (14.0-18.0); Mean Corpuscular HGB CONC 33.8 g/dL (32.0-36.0); Mean Corpuscular Hemoglobin 30.9 pg (27.0-31.0); Mean Corpuscular Volume 91.4 fl (78.0-98.0); Mean Platelet Volume 8.7 fL (7.4-10.4); Platelet Count 172 10x3/uL (130-400); RBC Distribution Width 11.9 % (11.5-14.5); Red Blood Cell (RBC) Count 4.72 mill/uL (4.70-6.10); White Blood Cell (WBC) Count 6.5 10x3/uL (4.8-10.8)
[2022-03-23 05:23] LABS: ALT (SGPT) 13 U/L (8-55); AST (SGOT) 15 U/L (5-34); Albumin 3.8 g/dL (3.5-5.0); Alkaline Phosphatase 54 U/L (40-110); Anion Gap 12 mmol/L (10-20); BUN (Urea Nitrogen) 10 mg/dL (8.4-25.7); Bilirubin, Total 0.5 mg/dL (0.2-1.2); Calc. Creatinine Clearance 111 mL/min (70-130); Calcium 9.3 mg/dL (7.8-10.44); Carbon Dioxide 23 mmol/L (22-29); Chloride 103 mmol/L (98-107); Estimated GFR 103; Globulin 3.4 g/dL (2.4-3.5); Glucose 110 mg/dL (70-105); Potassium 3.4 mmol/L (3.5-5.1); Protein, Total 7.2 g/dL (6.0-8.3); Sodium 135 mmol/L (136-145)
[2022-03-23] MEDS ORDERED: Potassium Chloride 20 MEQ TAB PO SCH (08:00)
[2022-03-23] MEDS: Losartan 25 MG TAB PO SCH (08:23)
[2022-03-23] MEDS: Hydrochlorothiazide 25 MG TAB PO SCH (08:23)
[2022-03-23] MEDS: Nicotine 21 MG PATCH TD SCH (08:23)
[2022-03-23] MEDS: Aspirin 81 mg Enteric Coated Tablet PO SCH (08:23)
[2022-03-23] MEDS: Apixaban 5 MG TAB PO SCH ×2 (08:24→21:53)
[2022-03-23] MEDS: hydrALAZINE 25 MG TAB PO SCH ×3 (08:24→21:51)
[2022-03-23] MEDS: Nebivolol HCl 5 MG TAB PO SCH (08:24)
[2022-03-23] MEDS ORDERED: Enoxaparin Sodium 40 MG/0.4 ML SYRINGE SC SCH (09:00)
[2022-03-23] MEDS ORDERED: Clopidogrel Bisulfate 75 MG TAB PO SCH (10:15)
[2022-03-23] MEDS ORDERED: Atorvastatin Calcium 40 MG TAB PO SCH (21:00)
[2022-03-23] MEDS: Atorvastatin Calcium 40 MG TAB PO SCH (21:52)
[2022-03-24 05:27] LABS: #Basophils 0.1 thou/uL (0.0-0.2); #Eosinphils 0.2 thou/uL (0.0-0.7); #Lymphocytes 2.6 thou/uL (1.20-3.40); #Monocytes 0.8 thou/uL (0.11-0.59); %Basophils 0.9 % (0.0-1.0); %Eosinophils 1.9 % (0.0-10.0); %Monocytes 9.8 % (0.0-10.0); %Neutrophils 57.5 % (42.0-75.0); Hemoglobin 15.6 g/dL (14.0-18.0); Mean Corpuscular HGB CONC 33.7 g/dL (32.0-36.0); Mean Corpuscular Hemoglobin 30.8 pg (27.0-31.0); Mean Corpuscular Volume 91.5 fl (78.0-98.0); Mean Platelet Volume 8.6 fL (7.4-10.4); Platelet Count 189 10x3/uL (130-400); Red Blood Cell (RBC) Count 5.06 mill/uL (4.70-6.10); White Blood Cell (WBC) Count 8.7 10x3/uL (4.8-10.8)
[2022-03-24 06:00] LABS: ALT (SGPT) 15 U/L (8-55); AST (SGOT) 13 U/L (5-34); Albumin 4.1 g/dL (3.5-5.0); Alkaline Phosphatase 55 U/L (40-110); Anion Gap 11 mmol/L (10-20); BUN (Urea Nitrogen) 10 mg/dL (8.4-25.7); Bilirubin, Total 0.7 mg/dL (0.2-1.2); Calc. Creatinine Clearance 118 mL/min (70-130); Calcium 9.6 mg/dL (7.8-10.44); Carbon Dioxide 24 mmol/L (22-29); Chloride 103 mmol/L (98-107); Estimated GFR 105; Globulin 3.5 g/dL (2.4-3.5); Glucose 103 mg/dL (70-105); Potassium 3.9 mmol/L (3.5-5.1); Protein, Total 7.6 g/dL (6.0-8.3); Sodium 134 mmol/L (136-145)
[2022-03-24 08:15] LABS: Direct LDL Cholesterol 65 mg/dL (0-99)
[2022-03-24] MEDS: Losartan 25 MG TAB PO SCH (08:35)
[2022-03-24] MEDS: Aspirin 81 mg Enteric Coated Tablet PO SCH (08:35)
[2022-03-24] MEDS: hydrALAZINE 25 MG TAB PO SCH ×3 (08:35→20:00)
[2022-03-24] MEDS: Nicotine 21 MG PATCH TD SCH (08:35)
[2022-03-24] MEDS: Clopidogrel Bisulfate 75 MG TAB PO SCH (08:36)
[2022-03-24] MEDS: Hydrochlorothiazide 25 MG TAB PO SCH (08:36)
[2022-03-24] MEDS: Nebivolol HCl 5 MG TAB PO SCH (08:36)
[2022-03-24] MEDS: Apixaban 5 MG TAB PO SCH ×2 (08:36→20:00)
[2022-03-24] MEDS: Atorvastatin Calcium 40 MG TAB PO SCH (20:00)
[2022-03-24 22:32] VITALS: BMI 25.4
[2022-03-25] MEDS: Aspirin 81 mg Enteric Coated Tablet PO SCH (09:05)
[2022-03-25] MEDS: Losartan 25 MG TAB PO SCH (09:05)
[2022-03-25] MEDS: hydrALAZINE 25 MG TAB PO SCH ×2 (09:05→15:07)
[2022-03-25] MEDS: Hydrochlorothiazide 25 MG TAB PO SCH (09:05)
[2022-03-25] MEDS: Nicotine 21 MG PATCH TD SCH (09:05)
[2022-03-25] MEDS: Apixaban 5 MG TAB PO SCH (09:06)
[2022-03-25] MEDS: Clopidogrel Bisulfate 75 MG TAB PO SCH (09:06)
[2022-03-25] MEDS: Nebivolol HCl 5 MG TAB PO SCH (10:34)
[2022-03-25 15:57] VITALS: BP 125/78; TEMP 97.8
== END 2022-03-25 19:06 | disposition home or self-care (01) | DRG 65 ==
LOC: ERS 15:35 → NEURO 20:42 → OBSVTOIN 03-23 12:17
PROVIDERS: ADMIT Family Medicine; ATTEND Student in an Organized Health Care Education/Training Program
DX: I63.81 Other cerebral infarction due to occlusion or stenosis of small artery (principal); I69.354 Hemiplegia and hemiparesis following cerebral infarction affecting left non-dominant side; R29.701 NIHSS score 1; Z20.822 Contact with and (suspected) exposure to COVID-19; F17.210 Nicotine dependence, cigarettes, uncomplicated; G47.33 Obstructive sleep apnea (adult) (pediatric); I48.0 Paroxysmal atrial fibrillation; J44.9 Chronic obstructive pulmonary disease, unspecified; E78.5 Hyperlipidemia, unspecified; M19.90 Unspecified osteoarthritis, unspecified site; F41.9 Anxiety disorder, unspecified; F32.A Depression, unspecified; Z28.21 Immunization not carried out because of patient refusal; Z88.8 Allergy status to other drugs, medicaments and biological substances; Z79.899 Other long term (current) drug therapy; Z79.1 Long term (current) use of non-steroidal anti-inflammatories (NSAID); Z79.82 Long term (current) use of aspirin; I25.2 Old myocardial infarction; Z90.49 Acquired absence of other specified parts of digestive tract; Z98.890 Other specified postprocedural states; Z82.3 Family history of stroke; Z82.49 Family history of ischemic heart disease and other diseases of the circulatory system; Z83.3 Family history of diabetes mellitus; Z86.16 Personal history of COVID-19
CPT/HCPCS: 36415; 70496; 70498; 70551; 71045; 80053; 81003; 82465; 82550; 83721; 84484; 85025; 85610; 85730; 93005; 94760; G0378; Q9967; U0002

== ENCOUNTER 2022-04-13 09:35 | Emergency (ER) | payer OTHER ==
[2022-04-13] MEDS ORDERED: Meclizine HCl 25 MG TAB ONE (10:09)
[2022-04-13 10:39] LABS: #Basophils 0.1 thou/uL (0.0-0.2); #Eosinphils 0.1 thou/uL (0.0-0.7); #Lymphocytes 1.8 thou/uL (1.20-3.40); #Monocytes 0.5 thou/uL (0.11-0.59); %Eosinophils 1.1 % (0.0-10.0); %Lymphocytes 24.5 % (21.0-51.0); %Monocytes 7.1 % (0.0-10.0); %Neutrophils 66.3 % (42.0-75.0); Hemoglobin 15.4 g/dL (14.0-18.0); Mean Corpuscular HGB CONC 32.8 g/dL (32.0-36.0); Mean Corpuscular Hemoglobin 30.2 pg (27.0-31.0); Mean Corpuscular Volume 91.9 fl (78.0-98.0); Platelet Count 212 10x3/uL (130-400); RBC Distribution Width 12.3 % (11.5-14.5); White Blood Cell (WBC) Count 7.5 10x3/uL (4.8-10.8)
[2022-04-13 11:00] LABS: ALT (SGPT) 16 U/L (8-55); AST (SGOT) 15 U/L (5-34); Albumin 4.5 g/dL (3.5-5.0); Alkaline Phosphatase 56 U/L (40-110); Anion Gap 17 mmol/L (10-20); BUN (Urea Nitrogen) 10 mg/dL (8.4-25.7); Bilirubin, Total 0.8 mg/dL (0.2-1.2); Calc. Creatinine Clearance 0 mL/min (70-130); Calcium 10.1 mg/dL (7.8-10.44); Carbon Dioxide 23 mmol/L (22-29); Chloride 101 mmol/L (98-107); Estimated GFR 101; Globulin 3.8 g/dL (2.4-3.5); Glucose 105 mg/dL (70-105); Potassium 3.5 mmol/L (3.5-5.1); Protein, Total 8.3 g/dL (6.0-8.3); Sodium 137 mmol/L (136-145)
== END 2022-04-13 11:50 | disposition home or self-care (01) ==
LOC: ERS 09:35
DX: R42 Dizziness and giddiness (principal); I10 Essential (primary) hypertension; E78.5 Hyperlipidemia, unspecified; F17.210 Nicotine dependence, cigarettes, uncomplicated
CPT/HCPCS: 36415; 80053; 85025; 93005

== ENCOUNTER 2022-07-18 08:14 | Inpatient (IN) | payer OTHER ==
[2022-07-18] MEDS ORDERED: Morphine 4 MG/ML VIAL ONE (09:16)
[2022-07-18] MEDS ORDERED: Ondansetron PF 4 MG/2 ML Vial ONE (09:17)
[2022-07-18 09:42] LABS: #Basophils 0.1 thou/uL (0.0-0.2); #Eosinphils 0.1 thou/uL (0.0-0.7); #Lymphocytes 1.7 thou/uL (1.20-3.40); #Monocytes 0.6 thou/uL (0.11-0.59); #Neutrophils 5.3 thou/uL (1.40-6.50); %Basophils 0.9 % (0.0-1.0); %Eosinophils 0.9 % (0.0-10.0); %Lymphocytes 22.3 % (21.0-51.0); %Monocytes 7.7 % (0.0-10.0); %Neutrophils 68.3 % (42.0-75.0); Hemoglobin 14.9 g/dL (14.0-18.0); Mean Corpuscular HGB CONC 31.8 g/dL (32.0-36.0); Mean Corpuscular Hemoglobin 29.5 pg (27.0-31.0); Mean Corpuscular Volume 92.8 fl (78.0-98.0); Mean Platelet Volume 8.8 fL (7.4-10.4); Platelet Count 207 10x3/uL (130-400); RBC Distribution Width 11.7 % (11.5-14.5); Red Blood Cell (RBC) Count 5.05 mill/uL (4.70-6.10); White Blood Cell (WBC) Count 7.8 10x3/uL (4.8-10.8)
[2022-07-18 09:49] LABS: Bilirubin Negative (Negative); Blood, Urine Negative (Negative); Clarity Clear (Clear); Glucose, Urine (Dipstick) Normal (Negative); Ketone, Urine Negative (Negative); Leukocyte Negative Leu/uL (Negative); Nitrite Negative (Negative); Protein, Urine (Dipstick) Negative (Neg-Trace); Specific Gravity, Urine 1.006 (1.002-1.036); Urobilinogen Normal mg/dL (Less than 2); pH, Urine 7.5 (5.0-9.0)
[2022-07-18 10:01] LABS: ALT (SGPT) 14 U/L (8-55); AST (SGOT) 13 U/L (5-34); Albumin 4.1 g/dL (3.5-5.0); Alkaline Phosphatase 58 U/L (40-110); Anion Gap 10 mmol/L (10-20); BUN (Urea Nitrogen) 11 mg/dL (8.4-25.7); Bilirubin, Total 0.7 mg/dL (0.2-1.2); Calc. Creatinine Clearance 0 mL/min (70-130); Calcium 9.7 mg/dL (7.8-10.44); Carbon Dioxide 28 mmol/L (22-29); Chloride 99 mmol/L (98-107); Estimated GFR 102; Globulin 3.5 g/dL (2.4-3.5); Glucose 96 mg/dL (70-105); Lipase 27 U/L (8-78); Potassium 3.5 mmol/L (3.5-5.1); Protein, Total 7.6 g/dL (6.0-8.3); Sodium 133 mmol/L (136-145)
[2022-07-18] MEDS ORDERED: Iopamidol 370 76% 100 ML VIAL ONE (10:05)
[2022-07-18 10:15] LABS: INR-International Normal Ratio 1.3; PTT 36.1 sec (22.9-36.1); Prothrombin Time 16.6 sec (12.0-14.7)
[2022-07-18 14:04] VITALS: BMI 23.6
[2022-07-18] MEDS: Atorvastatin Calcium 40 MG TAB PO SCH (21:16)
[2022-07-18] MEDS: Apixaban 5 MG TAB PO SCH (21:17)
[2022-07-18] MEDS: hydrALAZINE 25 MG TAB PO SCH (21:17)
[2022-07-18] MEDS: Acetaminophen 325 MG TAB PO PRN (22:56)
[2022-07-19 05:20] LABS: #Basophils 0.1 thou/uL (0.0-0.2); #Eosinphils 0.1 thou/uL (0.0-0.7); #Lymphocytes 2.3 thou/uL (1.20-3.40); #Monocytes 0.8 thou/uL (0.11-0.59); #Neutrophils 4.4 thou/uL (1.40-6.50); %Basophils 0.9 % (0.0-1.0); %Eosinophils 1.5 % (0.0-10.0); %Lymphocytes 30.2 % (21.0-51.0); %Monocytes 9.9 % (0.0-10.0); %Neutrophils 57.5 % (42.0-75.0); Hemoglobin 14.5 g/dL (14.0-18.0); Mean Corpuscular Hemoglobin 30.6 pg (27.0-31.0); Mean Corpuscular Volume 92.8 fl (78.0-98.0); Mean Platelet Volume 8.5 fL (7.4-10.4); Platelet Count 188 10x3/uL (130-400); RBC Distribution Width 11.8 % (11.5-14.5); Red Blood Cell (RBC) Count 4.73 mill/uL (4.70-6.10); White Blood Cell (WBC) Count 7.6 10x3/uL (4.8-10.8)
[2022-07-19 05:38] LABS: ALT (SGPT) 13 U/L (8-55); AST (SGOT) 16 U/L (5-34); Albumin 3.7 g/dL (3.5-5.0); Alkaline Phosphatase 55 U/L (40-110); Anion Gap 13 mmol/L (10-20); BUN (Urea Nitrogen) 18 mg/dL (8.4-25.7); Bilirubin, Total 0.7 mg/dL (0.2-1.2); Calc. Creatinine Clearance 89 mL/min (70-130); Calcium 9.5 mg/dL (7.8-10.44); Carbon Dioxide 25 mmol/L (22-29); Chloride 102 mmol/L (98-107); Estimated GFR 95; Globulin 3.7 g/dL (2.4-3.5); Glucose 102 mg/dL (70-105); Protein, Total 7.4 g/dL (6.0-8.3); Sodium 136 mmol/L (136-145)
[2022-07-19] MEDS ORDERED: FLU VACC QS2022-23(6MO UP)/PF 60 MCG/0.5 ML SYRINGE IM ONE (09:00)
[2022-07-19] MEDS: Hydrochlorothiazide 25 MG TAB PO SCH (09:33)
[2022-07-19] MEDS: Losartan 25 MG TAB PO SCH (09:33)
[2022-07-19] MEDS: Aspirin 81 mg Enteric Coated Tablet PO SCH (09:33)
[2022-07-19] MEDS: hydrALAZINE 25 MG TAB PO SCH ×3 (09:33→19:21)
[2022-07-19] MEDS: Apixaban 5 MG TAB PO SCH ×2 (09:34→19:22)
[2022-07-19] MEDS: Clopidogrel Bisulfate 75 MG TAB PO SCH (09:34)
[2022-07-19] MEDS: Acetaminophen 325 MG TAB PO PRN ×2 (17:24→23:34)
[2022-07-19] MEDS: Atorvastatin Calcium 40 MG TAB PO SCH (19:21)
[2022-07-20 05:16] LABS: #Basophils 0.1 thou/uL (0.0-0.2); #Eosinphils 0.1 thou/uL (0.0-0.7); #Lymphocytes 2.6 thou/uL (1.20-3.40); #Monocytes 0.6 thou/uL (0.11-0.59); #Neutrophils 4.7 thou/uL (1.40-6.50); %Basophils 0.7 % (0.0-1.0); %Eosinophils 1.1 % (0.0-10.0); %Lymphocytes 32.3 % (21.0-51.0); %Monocytes 7.8 % (0.0-10.0); %Neutrophils 58.2 % (42.0-75.0); Hemoglobin 14.5 g/dL (14.0-18.0); Mean Corpuscular HGB CONC 34.2 g/dL (32.0-36.0); Mean Corpuscular Hemoglobin 31.1 pg (27.0-31.0); Mean Corpuscular Volume 91.2 fl (78.0-98.0); Mean Platelet Volume 8.6 fL (7.4-10.4); Platelet Count 183 10x3/uL (130-400); RBC Distribution Width 11.6 % (11.5-14.5); Red Blood Cell (RBC) Count 4.64 mill/uL (4.70-6.10); White Blood Cell (WBC) Count 8.1 10x3/uL (4.8-10.8)
[2022-07-20 05:41] LABS: ALT (SGPT) 12 U/L (8-55); AST (SGOT) 14 U/L (5-34); Albumin 3.7 g/dL (3.5-5.0); Alkaline Phosphatase 51 U/L (40-110); Anion Gap 12 mmol/L (10-20); BUN (Urea Nitrogen) 19 mg/dL (8.4-25.7); Bilirubin, Total 0.5 mg/dL (0.2-1.2); Calc. Creatinine Clearance 95 mL/min (70-130); Calcium 9.4 mg/dL (7.8-10.44); Carbon Dioxide 27 mmol/L (22-29); Chloride 100 mmol/L (98-107); Estimated GFR 100; Globulin 3.6 g/dL (2.4-3.5); Glucose 106 mg/dL (70-105); Potassium 3.5 mmol/L (3.5-5.1); Protein, Total 7.3 g/dL (6.0-8.3); Sodium 135 mmol/L (136-145)
[2022-07-20] MEDS ORDERED: Potassium Chloride 20 MEQ TAB PO SCH (06:00)
[2022-07-20] MEDS: Aspirin 81 mg Enteric Coated Tablet PO SCH (08:07)
[2022-07-20] MEDS: Losartan 25 MG TAB PO SCH (08:07)
[2022-07-20] MEDS: hydrALAZINE 25 MG TAB PO SCH ×3 (08:08→20:02)
[2022-07-20] MEDS: Apixaban 5 MG TAB PO SCH (08:08)
[2022-07-20] MEDS: Hydrochlorothiazide 25 MG TAB PO SCH (08:08)
[2022-07-20] MEDS: Clopidogrel Bisulfate 75 MG TAB PO SCH (08:08)
[2022-07-20 10:00] LABS: Troponin I Less than 0.010 ng/mL (< 0.028)
[2022-07-20] MEDS: Atorvastatin Calcium 40 MG TAB PO SCH (20:01)
[2022-07-21 05:05] LABS: #Basophils 0.1 thou/uL (0.0-0.2); #Eosinphils 0.2 thou/uL (0.0-0.7); #Lymphocytes 2.4 thou/uL (1.20-3.40); #Monocytes 0.8 thou/uL (0.11-0.59); #Neutrophils 5.7 thou/uL (1.40-6.50); %Basophils 0.8 % (0.0-1.0); %Lymphocytes 26.4 % (21.0-51.0); %Monocytes 8.6 % (0.0-10.0); %Neutrophils 62.3 % (42.0-75.0); Hemoglobin 14.9 g/dL (14.0-18.0); Mean Corpuscular Hemoglobin 31.1 pg (27.0-31.0); Mean Corpuscular Volume 91.2 fl (78.0-98.0); Mean Platelet Volume 8.6 fL (7.4-10.4); Platelet Count 180 10x3/uL (130-400); RBC Distribution Width 11.6 % (11.5-14.5); Red Blood Cell (RBC) Count 4.78 mill/uL (4.70-6.10); White Blood Cell (WBC) Count 9.1 10x3/uL (4.8-10.8)
[2022-07-21 05:31] LABS: ALT (SGPT) 10 U/L (8-55); AST (SGOT) 12 U/L (5-34); Albumin 3.9 g/dL (3.5-5.0); Alkaline Phosphatase 52 U/L (40-110); Anion Gap 11 mmol/L (10-20); BUN (Urea Nitrogen) 14 mg/dL (8.4-25.7); Bilirubin, Total 0.5 mg/dL (0.2-1.2); Calc. Creatinine Clearance 99 mL/min (70-130); Calcium 9.6 mg/dL (7.8-10.44); Carbon Dioxide 25 mmol/L (22-29); Chloride 101 mmol/L (98-107); Estimated GFR 101; Globulin 3.5 g/dL (2.4-3.5); Glucose 105 mg/dL (70-105); Potassium 3.9 mmol/L (3.5-5.1); Protein, Total 7.4 g/dL (6.0-8.3); Sodium 133 mmol/L (136-145)
[2022-07-21] MEDS ORDERED: Regadenoson 0.4 MG/5 ML SYRINGE ONE (10:58)
[2022-07-21] MEDS: Aspirin 81 mg Enteric Coated Tablet PO SCH (11:56)
[2022-07-21] MEDS: hydrALAZINE 25 MG TAB PO SCH ×3 (11:56→20:35)
[2022-07-21] MEDS: Hydrochlorothiazide 25 MG TAB PO SCH (11:57)
[2022-07-21] MEDS: Losartan 25 MG TAB PO SCH (11:57)
[2022-07-21] MEDS: Clopidogrel Bisulfate 75 MG TAB PO SCH (19:36)
[2022-07-21] MEDS: Atorvastatin Calcium 40 MG TAB PO SCH (20:34)
[2022-07-22 05:57] LABS: #Basophils 0.1 thou/uL (0.0-0.2); #Eosinphils 0.2 thou/uL (0.0-0.7); #Lymphocytes 2.2 thou/uL (1.20-3.40); #Monocytes 0.7 thou/uL (0.11-0.59); %Basophils 0.9 % (0.0-1.0); %Eosinophils 2.1 % (0.0-10.0); %Lymphocytes 26.7 % (21.0-51.0); %Monocytes 8.8 % (0.0-10.0); %Neutrophils 61.5 % (42.0-75.0); Hemoglobin 14.4 g/dL (14.0-18.0); Mean Corpuscular HGB CONC 33.2 g/dL (32.0-36.0); Mean Corpuscular Hemoglobin 30.6 pg (27.0-31.0); Mean Corpuscular Volume 92.1 fl (78.0-98.0); Mean Platelet Volume 9.2 fL (7.4-10.4); Platelet Count 176 10x3/uL (130-400); RBC Distribution Width 11.7 % (11.5-14.5); Red Blood Cell (RBC) Count 4.71 mill/uL (4.70-6.10); White Blood Cell (WBC) Count 8.1 10x3/uL (4.8-10.8)
[2022-07-22 06:16] LABS: ALT (SGPT) 12 U/L (8-55); AST (SGOT) 14 U/L (5-34); Albumin 3.8 g/dL (3.5-5.0); Alkaline Phosphatase 60 U/L (40-110); Anion Gap 12 mmol/L (10-20); BUN (Urea Nitrogen) 16 mg/dL (8.4-25.7); Bilirubin, Total 0.4 mg/dL (0.2-1.2); Calc. Creatinine Clearance 108 mL/min (70-130); Calcium 9.8 mg/dL (7.8-10.44); Carbon Dioxide 24 mmol/L (22-29); Chloride 103 mmol/L (98-107); Estimated GFR 103; Globulin 3.7 g/dL (2.4-3.5); Glucose 103 mg/dL (70-105); Potassium 4.1 mmol/L (3.5-5.1); Protein, Total 7.5 g/dL (6.0-8.3); Sodium 135 mmol/L (136-145)
[2022-07-22] MEDS: Acetaminophen 325 MG TAB PO PRN (09:25)
[2022-07-22] MEDS: Hydrochlorothiazide 25 MG TAB PO SCH (09:25)
[2022-07-22] MEDS: hydrALAZINE 25 MG TAB PO SCH ×3 (09:25→20:09)
[2022-07-22] MEDS: Aspirin 81 mg Enteric Coated Tablet PO SCH (09:26)
[2022-07-22] MEDS: Losartan 25 MG TAB PO SCH (09:26)
[2022-07-22] MEDS: Atorvastatin Calcium 40 MG TAB PO SCH (20:09)
[2022-07-23 05:24] LABS: #Basophils 0.1 thou/uL (0.0-0.2); #Eosinphils 0.2 thou/uL (0.0-0.7); #Lymphocytes 2.6 thou/uL (1.20-3.40); #Monocytes 0.8 thou/uL (0.11-0.59); #Neutrophils 5.3 thou/uL (1.40-6.50); %Basophils 0.8 % (0.0-1.0); %Eosinophils 2.1 % (0.0-10.0); %Lymphocytes 28.7 % (21.0-51.0); %Neutrophils 59.4 % (42.0-75.0); Hemoglobin 15.4 g/dL (14.0-18.0); Mean Corpuscular HGB CONC 34.4 g/dL (32.0-36.0); Mean Corpuscular Hemoglobin 31.7 pg (27.0-31.0); Platelet Count 182 10x3/uL (130-400); RBC Distribution Width 11.6 % (11.5-14.5); Red Blood Cell (RBC) Count 4.86 mill/uL (4.70-6.10); White Blood Cell (WBC) Count 8.9 10x3/uL (4.8-10.8)
[2022-07-23 05:46] LABS: ALT (SGPT) 13 U/L (8-55); AST (SGOT) 15 U/L (5-34); Albumin 4.2 g/dL (3.5-5.0); Alkaline Phosphatase 54 U/L (40-110); Anion Gap 11 mmol/L (10-20); BUN (Urea Nitrogen) 14 mg/dL (8.4-25.7); Bilirubin, Total 0.6 mg/dL (0.2-1.2); Calc. Creatinine Clearance 92 mL/min (70-130); Carbon Dioxide 27 mmol/L (22-29); Chloride 101 mmol/L (98-107); Estimated GFR 93; Globulin 3.7 g/dL (2.4-3.5); Glucose 100 mg/dL (70-105); Potassium 4.4 mmol/L (3.5-5.1); Protein, Total 7.9 g/dL (6.0-8.3); Sodium 135 mmol/L (136-145)
[2022-07-23] MEDS: hydrALAZINE 25 MG TAB PO SCH ×3 (10:34→20:05)
[2022-07-23] MEDS: Aspirin 81 mg Enteric Coated Tablet PO SCH (10:34)
[2022-07-23] MEDS: Hydrochlorothiazide 25 MG TAB PO SCH (10:34)
[2022-07-23] MEDS: Losartan 25 MG TAB PO SCH (10:35)
[2022-07-23] MEDS: Atorvastatin Calcium 40 MG TAB PO SCH (20:05)
[2022-07-24 05:11] LABS: #Basophils 0.1 thou/uL (0.0-0.2); #Eosinphils 0.1 thou/uL (0.0-0.7); #Lymphocytes 2.4 thou/uL (1.20-3.40); #Monocytes 0.7 thou/uL (0.11-0.59); #Neutrophils 4.4 thou/uL (1.40-6.50); %Basophils 0.7 % (0.0-1.0); %Eosinophils 1.9 % (0.0-10.0); %Lymphocytes 31.2 % (21.0-51.0); %Monocytes 9.1 % (0.0-10.0); %Neutrophils 57.2 % (42.0-75.0); Hemoglobin 15.2 g/dL (14.0-18.0); Mean Corpuscular HGB CONC 31.8 g/dL (32.0-36.0); Mean Corpuscular Hemoglobin 29.2 pg (27.0-31.0); Mean Platelet Volume 8.6 fL (7.4-10.4); Platelet Count 203 10x3/uL (130-400); RBC Distribution Width 11.6 % (11.5-14.5); Red Blood Cell (RBC) Count 5.19 mill/uL (4.70-6.10); White Blood Cell (WBC) Count 7.6 10x3/uL (4.8-10.8)
[2022-07-24] MEDS ORDERED: CEFAZOLIN 2 GM in Sodium Chloride 0.9% 100 ML IVPB SCH (05:15)
[2022-07-24 05:24] LABS: ALT (SGPT) 14 U/L (8-55); AST (SGOT) 16 U/L (5-34); Albumin 4.2 g/dL (3.5-5.0); Alkaline Phosphatase 57 U/L (40-110); Anion Gap 12 mmol/L (10-20); BUN (Urea Nitrogen) 17 mg/dL (8.4-25.7); Bilirubin, Total 0.6 mg/dL (0.2-1.2); Calc. Creatinine Clearance 110 mL/min (70-130); Calcium 9.8 mg/dL (7.8-10.44); Carbon Dioxide 24 mmol/L (22-29); Chloride 101 mmol/L (98-107); Estimated GFR 103; Globulin 3.7 g/dL (2.4-3.5); Glucose 98 mg/dL (70-105); Potassium 3.8 mmol/L (3.5-5.1); Protein, Total 7.9 g/dL (6.0-8.3); Sodium 133 mmol/L (136-145)
[2022-07-24] MEDS ORDERED: Gentamicin 80 MG/2 ML VIAL ONE (06:25)
[2022-07-24] MEDS ORDERED: CEFAZOLIN 1 GM VIAL ONE ×2 (06:25→07:00)
[2022-07-24] MEDS ORDERED: Lidocaine 1% (PF) 30 ML VIAL ONE ×2 (06:32→07:14)
[2022-07-24] MEDS ORDERED: Midazolam HCl 2 mg/2 ml Vial ONE (07:20)
[2022-07-24] MEDS: Hydrochlorothiazide 25 MG TAB PO SCH (09:24)
[2022-07-24] MEDS: hydrALAZINE 25 MG TAB PO SCH ×3 (09:24→19:41)
[2022-07-24] MEDS: Acetaminophen 325 MG TAB PO PRN (09:25)
[2022-07-24] MEDS: Losartan 25 MG TAB PO SCH (09:25)
[2022-07-24] MEDS: Nebivolol HCl 5 MG TAB PO SCH (09:25)
[2022-07-24] MEDS: Aspirin 81 mg Enteric Coated Tablet PO SCH (09:26)
[2022-07-24] MEDS: Acetaminophen/Codeine 30-300mg Tablet PO PRN ×2 (13:46→19:42)
[2022-07-24] MEDS: Atorvastatin Calcium 40 MG TAB PO SCH (19:41)
[2022-07-25] MEDS: Acetaminophen/Codeine 30-300mg Tablet PO PRN (04:55)
[2022-07-25 05:05] LABS: #Basophils 0.1 thou/uL (0.0-0.2); #Eosinphils 0.1 thou/uL (0.0-0.7); #Lymphocytes 1.7 thou/uL (1.20-3.40); #Monocytes 0.9 thou/uL (0.11-0.59); #Neutrophils 7.2 thou/uL (1.40-6.50); %Basophils 0.6 % (0.0-1.0); %Eosinophils 1.5 % (0.0-10.0); %Lymphocytes 17.4 % (21.0-51.0); %Monocytes 8.8 % (0.0-10.0); %Neutrophils 71.7 % (42.0-75.0); Hemoglobin 14.6 g/dL (14.0-18.0); Mean Corpuscular HGB CONC 34.1 g/dL (32.0-36.0); Mean Corpuscular Hemoglobin 31.3 pg (27.0-31.0); Mean Corpuscular Volume 91.9 fl (78.0-98.0); Mean Platelet Volume 8.8 fL (7.4-10.4); Platelet Count 164 10x3/uL (130-400); RBC Distribution Width 11.7 % (11.5-14.5); Red Blood Cell (RBC) Count 4.67 mill/uL (4.70-6.10)
[2022-07-25 05:40] LABS: ALT (SGPT) 14 U/L (8-55); AST (SGOT) 15 U/L (5-34); Albumin 3.9 g/dL (3.5-5.0); Alkaline Phosphatase 57 U/L (40-110); Anion Gap 8 mmol/L (10-20); BUN (Urea Nitrogen) 16 mg/dL (8.4-25.7); Bilirubin, Total 0.4 mg/dL (0.2-1.2); Calc. Creatinine Clearance 100 mL/min (70-130); Calcium 9.2 mg/dL (7.8-10.44); Carbon Dioxide 30 mmol/L (22-29); Chloride 100 mmol/L (98-107); Estimated GFR 100; Globulin 3.3 g/dL (2.4-3.5); Glucose 100 mg/dL (70-105); Potassium 3.9 mmol/L (3.5-5.1); Protein, Total 7.2 g/dL (6.0-8.3); Sodium 134 mmol/L (136-145)
[2022-07-25] MEDS: Aspirin 81 mg Enteric Coated Tablet PO SCH (09:40)
[2022-07-25] MEDS: Nebivolol HCl 5 MG TAB PO SCH (09:41)
[2022-07-25] MEDS: Hydrochlorothiazide 25 MG TAB PO SCH (09:41)
[2022-07-25] MEDS: Losartan 25 MG TAB PO SCH (09:41)
[2022-07-25] MEDS: hydrALAZINE 25 MG TAB PO SCH (09:41)
[2022-07-25 13:17] VITALS: TEMP 98.2
[2022-07-25 13:28] VITALS: BP 126/78
== END 2022-07-25 14:50 | disposition home or self-care (01) | DRG 244 ==
LOC: ERS 08:14 → ERHOLD 11:20 → 2SW 13:37 → OBSVTOIN 07-20 09:45
PROVIDERS: ADMIT Family Medicine; ATTEND Family Medicine
PROC: 0JH606Z Insertion of Pacemaker, Dual Chamber into Chest Subcutaneous Tissue and Fascia, Open Approach (ICD-10-PCS; principal; 2022-07-24)
PROC: 02H60JZ Insertion of Pacemaker Lead into Right Atrium, Open Approach (ICD-10-PCS; 2022-07-24)
PROC: 02HK0JZ Insertion of Pacemaker Lead into Right Ventricle, Open Approach (ICD-10-PCS; 2022-07-24)
DX: I49.5 Sick sinus syndrome (principal); I10 Essential (primary) hypertension; E78.5 Hyperlipidemia, unspecified; J44.9 Chronic obstructive pulmonary disease, unspecified; F17.210 Nicotine dependence, cigarettes, uncomplicated; B18.2 Chronic viral hepatitis C; I25.10 Atherosclerotic heart disease of native coronary artery without angina pectoris; F41.9 Anxiety disorder, unspecified; Z88.8 Allergy status to other drugs, medicaments and biological substances; Z79.82 Long term (current) use of aspirin; Z79.899 Other long term (current) drug therapy; Z86.73 Personal history of transient ischemic attack (TIA), and cerebral infarction without residual deficits; Z90.49 Acquired absence of other specified parts of digestive tract; I25.2 Old myocardial infarction
CPT/HCPCS: 33208; 36415; 70450; 71045; 71260; 72125; 74177; 78452; 80053; 81003; 83690; 84484; 85025; 85610; 85730; 93005; 93010; 93017; 93798; 94760; 96374; 96375; 97139; 99152; 99153; A9500; C1785; C1898; G0378; J0690; J1580; J2001; J2250; J2270; J2405; J2785

== ENCOUNTER 2022-10-12 03:30 | Emergency (ER) | payer OTHER, SELFPAY ==
[2022-10-12] MEDS ORDERED: Ketorolac Tromethamine 30 MG/ML VIAL ONE (04:01)
[2022-10-12] MEDS ORDERED: Morphine 4 MG/ML VIAL ONE (04:01)
[2022-10-12] MEDS ORDERED: Aspirin 325 MG TAB ONE (04:01)
[2022-10-12] MEDS ORDERED: Ondansetron PF 4 MG/2 ML Vial ONE (04:01)
[2022-10-12 04:11] LABS: #Basophils 0.1 thou/uL (0.0-0.2); #Eosinphils 0.1 thou/uL (0.0-0.7); #Monocytes 0.6 thou/uL (0.11-0.59); #Neutrophils 3.7 thou/uL (1.40-6.50); %Basophils 0.8 % (0.0-1.0); %Eosinophils 1.9 % (0.0-10.0); %Lymphocytes 28.1 % (21.0-51.0); Hemoglobin 14.8 g/dL (14.0-18.0); Mean Corpuscular HGB CONC 33.7 g/dL (32.0-36.0); Mean Corpuscular Hemoglobin 29.7 pg (27.0-31.0); Mean Platelet Volume 11.4 fL (7.4-10.4); Platelet Count 178 10x3/uL (130-400); Red Blood Cell (RBC) Count 4.99 mill/uL (4.70-6.10); White Blood Cell (WBC) Count 6.2 10x3/uL (4.8-10.8)
[2022-10-12 04:40] LABS: ALT (SGPT) 10 U/L (8-55); AST (SGOT) 14 U/L (5-34); Alkaline Phosphatase 59 U/L (40-110); Anion Gap 12 mmol/L (10-20); BUN (Urea Nitrogen) 14 mg/dL (8.4-25.7); Bilirubin, Total 0.4 mg/dL (0.2-1.2); CK (CPK) 62 U/L (30-200); Calc. Creatinine Clearance 0 mL/min (70-130); Calcium 9.5 mg/dL (7.8-10.44); Carbon Dioxide 26 mmol/L (22-29); Chloride 103 mmol/L (98-107); Estimated GFR 102; Globulin 3.5 g/dL (2.4-3.5); Glucose 120 mg/dL (70-105); Lipase 41 U/L (8-78); Magnesium 2.2 mg/dL (1.6-2.6); Potassium 3.4 mmol/L (3.5-5.1); Protein, Total 7.5 g/dL (6.0-8.3); Sodium 138 mmol/L (136-145)
== END 2022-10-12 05:43 | disposition home or self-care (01) ==
LOC: ERS 03:30
DX: R07.89 Other chest pain (principal); H81.10 Benign paroxysmal vertigo, unspecified ear; I10 Essential (primary) hypertension; E78.5 Hyperlipidemia, unspecified; F17.210 Nicotine dependence, cigarettes, uncomplicated
CPT/HCPCS: 36415; 71045; 80053; 82550; 83690; 83735; 83880; 84484; 85025; 93005; 96374; 96375; J1885; J2270; J2405

== ENCOUNTER 2023-10-26 07:05 | Emergency (ER) | payer OTHER ==
[2023-10-26 07:30] LABS: #Basophils 0.04 10x3/uL (0.0-0.2); %Basophils 0.6 % (0.0-1.0); %Eosinophils 2.3 % (0.0-10.0); %Lymphocytes 24.5 % (21.0-51.0); %Monocytes 8.8 % (0.0-10.0); %Neutrophils 63.4 % (42.0-75.0); Hematocrit 38.9 % (42.0-52.0); Mean Corpuscular HGB CONC 33.4 g/dL (32.0-36.0); Mean Corpuscular Hemoglobin 29.7 pg (27.0-31.0); Mean Platelet Volume 10.8 fL (7.4-10.4); Platelet Count 199 10x3/uL (130-400); RBC Distribution Width 13.2 % (11.5-14.5); Red Blood Cell (RBC) Count 4.37 mill/uL (4.70-6.10)
[2023-10-26 07:40] LABS: ALT (SGPT) 14 U/L (8-55); AST (SGOT) 17 U/L (5-34); Albumin 3.9 g/dL (3.5-5.0); Alkaline Phosphatase 59 U/L (40-110); Anion Gap 13 mmol/L (10-20); BUN (Urea Nitrogen) 18 mg/dL (8.4-25.7); Bilirubin, Total 0.7 mg/dL (0.2-1.2); Calc. Creatinine Clearance 0 mL/min (70-130); Calcium 9.4 mg/dL (7.8-10.44); Carbon Dioxide 25 mmol/L (22-29); Chloride 103 mmol/L (98-107); Estimated GFR 99; Globulin 3.4 g/dL (2.4-3.5); Glucose 100 mg/dL (70-105); Potassium 3.8 mmol/L (3.5-5.1); Protein, Total 7.3 g/dL (6.0-8.3); Sodium 137 mmol/L (136-145)
[2023-10-26] MEDS ORDERED: Iopamidol-370 76% 500 ML MDV (1 ML CHARGE) ONE (15:42)
== END 2023-10-26 08:56 | disposition home or self-care (01) ==
LOC: ERS 07:05
DX: J02.9 Acute pharyngitis, unspecified (principal); I10 Essential (primary) hypertension; F17.210 Nicotine dependence, cigarettes, uncomplicated
CPT/HCPCS: 36415; 70491; 71045; 80053; 85025; 93005; Q9967